=== PATIENT | female | born 1950 | race Caucasian/White ===

== ENCOUNTER 2020-12-24 10:51 | Outpatient (REF) | payer MEDICARE, OTHER, SELFPAY ==
[2020-12-24 10:57] LABS: MANUAL DIFF FLAG NO
[2020-12-24 11:24] LABS: Basophils Absolute Auto 0.1 X10*3/uL (0.0-0.2); Basophils Percent Auto 1.3 % (0-2); Eosinophils Absolute Auto 0.3 X10*3/uL (0.0-0.4); Eosinophils Percent Auto 3.9 % (0-4); Hematocrit 42.5 % (37-47); Hemoglobin 13.7 g/dl (12.0-16.0); Imm Gran Abs Auto 0.02 X10*3/uL (0.00-0.03); Imm Gran Pct Auto 0.3 % (0.0-0.4); Lymphocytes Percent Auto 42.5 % (20-40); Mean Corpuscular HGB Conc 32.2 g/dl (31.0-35.0); Mean Corpuscular Volume 93.2 fL (80-98); Mean Platelet Volume 11.2 fL (9.4-12.3); Monocytes Absolute Auto 0.7 X10*3/uL (0.1-1.2); Monocytes Percent Auto 9.1 % (2-11); Neutrophils Absolute Auto 3.1 X10*3/uL (2.0-8.3); Neutrophils Percent Auto 42.9 % (45-73); Platelet Count 230 X10*3/uL (160-400); Red Blood Count 4.56 X10*6/uL (4.20-5.50); Red Cell Distribution Width 13.2 % (11.0-16.0); White Blood Count 7.1 X10*3/uL (4.8-10.8)
[2020-12-24 12:09] LABS: Appearance Urine CLEAR; Color Urine YELLOW; Glucose Urine UA NEG (NEG); Leukocyte Esterase Urine 1+ (NEG); Nitrite Urine NEG (NEG); Urine Blood 1+ (NEG); Urine Ketones NEG (NEG); Urine Protein NEG (NEG-TRACE)
[2020-12-24 13:13] LABS: Squamous Epithelial Cell Urine TRACE /LPF
[2020-12-24 14:29] LABS: TSH reflex Free T4 3.52 uIU/mL (0.32-4.0); Vitamin D 25-OH Total 37.8 ng/mL (>30)
[2020-12-24 14:37] LABS: Alanine Aminotransferase 19 U/L (0-31); Albumin Level 3.9 g/dL (3.5-5.0); Alkaline Phosphatase 65 U/L (39-117); Anion Gap 12 (12-20); Aspartate Amino Transferase 20 U/L (5-31); Bilirubin Total 0.4 mg/dL (0.0-1.0); Blood Urea Nitrogen 12 mg/dL (9-16); Carbon Dioxide 29 mmol/L (22-29); Chloride 106 mmol/L (96-108); Cholesterol 245 mg/dL; Estimated Glomerular Filt Rate > 60; Glucose Fasting 83 mg/dL (60-99); HDL Cholesterol 91 mg/dL; LDL Cholesterol Calculated 137 mg/dl; Sodium 143 mmol/L (135-145); Total Protein 6.2 g/dL (6.5-8.0); Triglycerides 86 mg/dL
== END 2020-12-24 10:52 | disposition home or self-care (01) ==
LOC: HO.LNP 10:51
PROVIDERS: Visit Provider Internal Medicine
DX: E01.8 Other iodine-deficiency related thyroid disorders and allied conditions (principal); M85.80 Other specified disorders of bone density and structure, unspecified site; E78.00 Pure hypercholesterolemia, unspecified; E55.9 Vitamin D deficiency, unspecified
CPT/HCPCS: 80053; 80061; 81001; 81003; 82306; 84443; 85025

== ENCOUNTER 2021-12-24 07:36 | Outpatient (REF) | payer MEDICARE, OTHER, SELFPAY ==
[2021-12-24 07:49] LABS: MANUAL DIFF FLAG NO
[2021-12-24 08:41] LABS: Basophils Absolute Auto 0.1 X10*3/uL (0.0-0.2); Basophils Percent Auto 0.9 % (0-2); Eosinophils Absolute Auto 0.3 X10*3/uL (0.0-0.4); Eosinophils Percent Auto 3.5 % (0-4); Hematocrit 40.2 % (37.0-47.0); Hemoglobin 13.2 g/dl (12.0-16.0); Imm Gran Abs Auto 0.02 X10*3/uL (0.00-0.03); Imm Gran Pct Auto 0.2 % (0.0-0.4); Lymphocytes Absolute Auto 3.3 X10*3/uL (1.2-4.9); Lymphocytes Percent Auto 40.4 % (20-40); Mean Corpuscular HGB Conc 32.8 g/dl (31.0-35.0); Mean Corpuscular Hemoglobin 30.1 pg (27.0-33.0); Mean Corpuscular Volume 91.6 fL (80.0-98.0); Mean Platelet Volume 10.5 fL (9.4-12.3); Monocytes Absolute Auto 0.7 X10*3/uL (0.1-1.2); Monocytes Percent Auto 8.8 % (2-11); Neutrophils Absolute Auto 3.8 x10*3/uL (2.0-8.3); Neutrophils Percent Auto 46.2 % (45-73); Platelet Count 246 X10*3/uL (160-400); Red Blood Count 4.39 X10*6/uL (4.20-5.50); Red Cell Distribution Width 13.5 % (11.0-16.0); White Blood Count 8.1 X10*3/uL (4.8-10.8)
[2021-12-24 09:08] LABS: Alanine Aminotransferase 17 U/L (0-31); Albumin Level 3.9 g/dL (3.5-5.0); Alkaline Phosphatase 60 U/L (39-117); Anion Gap 13 (12-20); Aspartate Amino Transferase 18 U/L (5-31); Bilirubin Total 0.6 mg/dL (0.0-1.0); Blood Urea Nitrogen 15 mg/dL (9-16); Calcium 9.4 mg/dL (8.4-10.2); Carbon Dioxide 29 mmol/L (22-29); Chloride 105 mmol/L (96-108); Cholesterol 255 mg/dL; Estimated Glomerular Filt Rate > 60; Glucose Fasting 80 mg/dL (60-99); HDL Cholesterol 87 mg/dL; LDL Cholesterol Calculated 154 mg/dl; Potassium 4.3 mmol/L (3.3-5.1); Sodium 143 mmol/L (135-145); Total Protein 6.5 g/dL (6.5-8.0); Triglycerides 71 mg/dL
[2021-12-24 09:23] LABS: Appearance Urine Clear; Color Urine Yellow; Glucose Urine UA Negative (Negative); Leukocyte Esterase Urine Small (1+) (Negative); Nitrite Urine Negative (Negative); PH 6.5 (5.0-9.0); UMIC TRIGGER UA YES; Urine Blood Small (1+) (Negative); Urine Ketones Negative (Negative); Urine Protein Negative (Neg-Trace)
[2021-12-24 09:29] LABS: TSH reflex Free T4 3.36 uIU/mL (0.32-4.0); Vitamin D 25-OH Total 40.5 ng/mL (>30)
[2021-12-24 09:40] LABS: Bacteria Urine None Seen (None Seen); Hyaline Casts Urine 0-2 /LPF (0-2); Squamous Epithelial Cell Urine 0-2 /HPF (0-2); WBC Urine 0-5 /HPF (0-5)
== END 2021-12-24 07:37 | disposition home or self-care (01) ==
LOC: HO.LAB 07:36
PROVIDERS: PCP Internal Medicine; Visit Provider Internal Medicine
DX: E01.8 Other iodine-deficiency related thyroid disorders and allied conditions (principal); E78.00 Pure hypercholesterolemia, unspecified; E55.9 Vitamin D deficiency, unspecified
CPT/HCPCS: 36415; 80053; 80061; 81001; 82306; 84443; 85025

== ENCOUNTER 2023-01-26 11:15 | Outpatient (REF) | payer MEDICARE, OTHER, SELFPAY ==
[2023-01-26 11:20] LABS: MANUAL DIFF FLAG NO
[2023-01-26 11:29] LABS: Appearance Urine Clear; Color Urine Yellow; Glucose Urine UA Negative (Negative); Leukocyte Esterase Urine Small (1+) (Negative); Nitrite Urine Negative (Negative); Specific Gravity - Urine 1.015 (1.005-1.025); UMIC TRIGGER UACC YES; Urine Blood Small (1+) (Negative); Urine Ketones Negative (Negative); Urine Protein Negative (Neg-Trace)
[2023-01-26 11:30] LABS: Basophils Absolute Auto 0.1 X10*3/uL (0.0-0.2); Basophils Percent Auto 1.3 % (0-2); Eosinophils Absolute Auto 0.3 X10*3/uL (0.0-0.4); Eosinophils Percent Auto 4.2 % (0-4); Hematocrit 43.1 % (37.0-47.0); Hemoglobin 13.6 g/dl (12.0-16.0); Imm Gran Abs Auto 0.01 X10*3/uL (0.00-0.03); Imm Gran Pct Auto 0.1 % (0.0-0.4); Lymphocytes Absolute Auto 3.5 X10*3/uL (1.2-4.9); Lymphocytes Percent Auto 47.2 % (20-40); Mean Corpuscular HGB Conc 31.6 g/dl (31.0-35.0); Mean Corpuscular Hemoglobin 29.3 pg (27.0-33.0); Mean Corpuscular Volume 92.9 fL (80.0-98.0); Mean Platelet Volume 11.7 fL (9.4-12.3); Monocytes Absolute Auto 0.6 X10*3/uL (0.1-1.2); Monocytes Percent Auto 7.9 % (2-11); Neutrophils Absolute Auto 2.9 x10*3/uL (2.0-8.3); Neutrophils Percent Auto 39.3 % (45-73); Platelet Count 217 X10*3/uL (160-400); Red Blood Count 4.64 X10*6/uL (4.20-5.50); Red Cell Distribution Width 13.2 % (11.0-16.0); White Blood Count 7.4 X10*3/uL (4.8-10.8)
[2023-01-26 11:47] LABS: Bacteria Urine None Seen (None Seen); Hyaline Casts Urine 0-2 /LPF (0-2); Squamous Epithelial Cell Urine 0-2 /HPF (0-2); UACC Culture Trigger YES; WBC Urine 0-5 /HPF (0-5)
[2023-01-26 11:55] LABS: Alanine Aminotransferase 19 U/L (0-31); Albumin Level 3.9 g/dL (3.5-5.0); Alkaline Phosphatase 64 U/L (39-117); Anion Gap 13 (12-20); Aspartate Amino Transferase 19 U/L (5-31); Bilirubin Total 0.4 mg/dL (0.0-1.0); Blood Urea Nitrogen 16 mg/dL (9-16); Calcium 9.5 mg/dL (8.4-10.2); Carbon Dioxide 27 mmol/L (22-29); Chloride 105 mmol/L (96-108); Cholesterol 254 mg/dL (<200); Estimated Glomerular Filt Rate > 60; Glucose Fasting 82 mg/dL (60-99); HDL Cholesterol 85 mg/dL (>40); LDL Cholesterol Calculated 148 mg/dL (<100); Potassium 3.9 mmol/L (3.3-5.1); Sodium 141 mmol/L (135-145); Total Protein 6.8 g/dL (6.5-8.0); Triglycerides 108 mg/dL (<150)
[2023-01-26 12:11] LABS: TSH reflex Free T4 5.31 uIU/mL (0.32-4.0); Vitamin D 25-OH Total 52.4 ng/mL (>30)
[2023-01-26 12:58] LABS: Free T4 (Free Thyroxine) 1.04 ng/dL (0.71-1.85)
== END 2023-01-26 11:16 | disposition home or self-care (01) ==
LOC: HO.LNP 11:15
PROVIDERS: Visit Provider Internal Medicine
DX: E01.8 Other iodine-deficiency related thyroid disorders and allied conditions (principal); E78.00 Pure hypercholesterolemia, unspecified; E55.9 Vitamin D deficiency, unspecified; R82.90 Unspecified abnormal findings in urine
CPT/HCPCS: 80053; 80061; 81001; 82306; 84439; 84443; 85025; 87086

== ENCOUNTER 2023-05-05 11:11 | Outpatient (REF) | payer MEDICARE, OTHER, SELFPAY ==
[2023-05-05 12:12] LABS: TSH reflex Free T4 4.23 uIU/mL (0.32-4.0)
[2023-05-05 12:52] LABS: Free T4 (Free Thyroxine) 1.18 ng/dL (0.71-1.85)
== END 2023-05-05 11:12 | disposition home or self-care (01) ==
LOC: HO.LNP 11:11
PROVIDERS: Visit Provider Internal Medicine
DX: E04.1 Nontoxic single thyroid nodule (principal)
CPT/HCPCS: 84439; 84443

== ENCOUNTER 2024-02-04 11:06 | Outpatient (REF) | payer MEDICARE, OTHER, SELFPAY ==
[2024-02-04 11:13] LABS: MANUAL DIFF FLAG NO
[2024-02-04 12:00] LABS: Appearance Urine Clear; Color Urine Yellow; Glucose Urine UA Negative (Negative); Leukocyte Esterase Urine Trace (Negative); Nitrite Urine Negative (Negative); PH 6.5 (5.0-9.0); UMIC TRIGGER UACC YES; Urine Blood Moderate (2+) (Negative); Urine Ketones Negative (Negative); Urine Protein Negative (Neg-Trace)
[2024-02-04 12:01] LABS: Basophils Absolute Auto 0.1 X10*3/uL (0.0-0.2); Basophils Percent Auto 1.2 % (0-2); Eosinophils Absolute Auto 0.3 X10*3/uL (0.0-0.4); Eosinophils Percent Auto 3.7 % (0-4); Hemoglobin 13.3 g/dl (12.0-16.0); Imm Gran Abs Auto 0.02 X10*3/uL (0.00-0.03); Imm Gran Pct Auto 0.3 % (0.0-0.4); Lymphocytes Absolute Auto 3.5 X10*3/uL (1.2-4.9); Lymphocytes Percent Auto 46.1 % (20-40); Mean Corpuscular HGB Conc 32.4 g/dl (31.0-35.0); Mean Corpuscular Hemoglobin 30.2 pg (27.0-33.0); Mean Platelet Volume 11.1 fL (9.4-12.3); Monocytes Absolute Auto 0.6 X10*3/uL (0.1-1.2); Monocytes Percent Auto 7.5 % (2-11); Neutrophils Absolute Auto 3.2 x10*3/uL (2.0-8.3); Neutrophils Percent Auto 41.2 % (45-73); Platelet Count 223 X10*3/uL (160-400); Red Blood Count 4.41 X10*6/uL (4.20-5.50); Red Cell Distribution Width 13.5 % (11.0-16.0); White Blood Count 7.7 X10*3/uL (4.8-10.8)
[2024-02-04 12:03] LABS: Bacteria Urine None Seen (None Seen); Hyaline Casts Urine 0-2 /LPF (0-2); Squamous Epithelial Cell Urine 0-2 /HPF (0-2); WBC Urine 0-5 /HPF (0-5)
[2024-02-04 12:24] LABS: Alanine Aminotransferase 18 U/L (0-31); Albumin Level 3.8 g/dL (3.5-5.0); Alkaline Phosphatase 69 U/L (39-117); Anion Gap 10 (12-20); Aspartate Amino Transferase 25 U/L (5-31); Bilirubin Total 0.5 mg/dL (0.0-1.0); Blood Urea Nitrogen 14 mg/dL (9-16); Calcium 9.9 mg/dL (8.4-10.2); Carbon Dioxide 30 mmol/L (22-29); Chloride 106 mmol/L (96-108); Cholesterol 234 mg/dL (<200); Estimated Glomerular Filt Rate > 60; Glucose Fasting 80 mg/dL (60-99); HDL Cholesterol 86 mg/dL (>40); LDL Cholesterol Calculated 128 mg/dL (<100); Potassium 3.8 mmol/L (3.3-5.1); Sodium 142 mmol/L (135-145); Total Protein 6.6 g/dL (6.5-8.0); Triglycerides 103 mg/dL (<150)
[2024-02-04 12:42] LABS: TSH reflex Free T4 4.02 uIU/mL (0.32-4.0); Vitamin D 25-OH Total 60.6 ng/mL (>30)
[2024-02-04 13:21] LABS: Free T4 (Free Thyroxine) 0.96 ng/dL (0.71-1.85)
== END 2024-02-04 11:07 | disposition home or self-care (01) ==
LOC: HO.LNP 11:06
PROVIDERS: Visit Provider Internal Medicine
DX: E01.8 Other iodine-deficiency related thyroid disorders and allied conditions (principal); E78.00 Pure hypercholesterolemia, unspecified; E55.9 Vitamin D deficiency, unspecified
CPT/HCPCS: 80053; 80061; 81001; 82306; 84439; 84443; 85025

== ENCOUNTER 2024-04-18 12:00 | Outpatient (REF) | payer MEDICARE, OTHER, SELFPAY ==
[2024-04-19 16:18] LABS: Immunoglobulin A 311 mg/dL (70-320)
[2024-04-19 21:58] LABS: Transglutaminase IgA <1.0 U/mL
== END 2024-04-18 12:01 | disposition home or self-care (01) ==
LOC: HO.10HDL 12:00
PROVIDERS: Visit Provider Internal Medicine Gastroenterology
DX: R19.4 Change in bowel habit (principal)
CPT/HCPCS: 36415; 82784; 86364

== ENCOUNTER 2024-05-11 11:46 | Day surgery (SDC) | payer MEDICARE, OTHER, SELFPAY ==
[2024-05-09 14:01] VITALS: BMI 20.4
[2024-05-11 12:25] VITALS: BMI 20.8
[2024-05-11 12:30] VITALS: BP 146/75; PULSE 68; RESP 16; TEMP 36.9; O2SAT 99
[2024-05-11] MEDS: Lactated Ringers 1,000 ML 100 ML IVCONT (12:53)
--- NOTE | 2024-05-11 13:05 | HO.ANESPROP2 ---
Documented by User: Savita Nielson NP 05/10/24 08:32 HPI - Anesthesia Eval Consult details Narrative: 73yo F for Colonoscopy PMFSH Active Problems Active Problems: All Active Problems Tick bite of abdomen (Acute) Past Medical History Medical History (Updated 05/09/24 @ 14:01 by Evelyn Pedersen RN) Generalized headaches Thyroid disease Anxiety Surgical History Surgical History (Updated 05/09/24 @ 14:01 by Evelyn Pedersen RN) Hx of tonsillectomy H/O colonoscopy Social History Social History Patient Tobacco Use Status: Current everyday Tobacco user Cigarettes Per Day: 4 Use of substances other than those prescribed or required for medical reasons: No Are you DNR?: No Advance Directives: No Advance Directives Information Provided: Yes Meds Allergies Allergy/AdvReac Type Severity Reaction Status Date / Time Seasonal Allergies Allergy Intermediate Sneezing Verified 05/11/24 12:39 fragrance in mycolog Allergy Intermediate blisters Uncoded 05/11/24 12:39 hair dye Allergy Unknown Unknown Uncoded 05/11/24 12:39 Home Medications ?Medication ?Instructions ?Recorded ?Confirmed ?Last Taken ?Type cholecalciferol (vitamin D3) 10 10 mcg PO DAILY 08/15/22 05/11/24 Unknown History mcg (400 unit) capsule clobetasol 0.05 % topical cream 1 appl topical DAILY 08/15/22 05/11/24 Unknown History ketoconazole 2 % topical cream 1 appl topical DAILY 08/15/22 05/11/24 Unknown History levothyroxine 88 mcg tablet 88 mcg PO 5XW 08/15/22 05/11/24 05/11/24 History metronidazole 0.75 % topical cream 1 appl topical DAILY 08/15/22 05/11/24 Unknown History (MetroCream) levothyroxine 100 mcg tablet 100 mcg PO 2XW 05/09/24 05/11/24 Unknown History Exam Height,Weight and Vital Signs: Height 5 ft 4 in Weight 53.977 kg Assessment and Plan Assessment Anesthesia Assessment: Chart Reviewed Documented by User: Leona Phelan, 05/11/24 13:06 [facility] Past Medical History Medical History (Updated 05/09/24 @ 14:01 by Evelyn Pedersen RN) Generalized headaches Thyroid disease Anxiety Family History Family history of problems with anesthesia: No Surgical History Surgical History (Updated 05/09/24 @ 14:01 by Evelyn Pedersen RN) Hx of tonsillectomy H/O colonoscopy History of Problems with Anesthesia: No Social History Social History Patient Tobacco Use Status: Current everyday Tobacco user Cigarettes Per Day: 4 Use of substances other than those prescribed or required for medical reasons: No Are you DNR?: No Advance Directives: No Advance Directives Information Provided: Yes Meds Allergies Allergy/AdvReac Type Severity Reaction Status Date / Time Seasonal Allergies Allergy Intermediate Sneezing Verified 05/11/24 12:39 fragrance in mycolog Allergy Intermediate blisters Uncoded 05/11/24 12:39 hair dye Allergy Unknown Unknown Uncoded 05/11/24 12:39 Home Medications ?Medication ?Instructions ?Recorded ?Confirmed ?Last Taken ?Type cholecalciferol (vitamin D3) 10 10 mcg PO DAILY 08/15/22 05/11/24 Unknown History mcg (400 unit) capsule clobetasol 0.05 % topical cream 1 appl topical DAILY 08/15/22 05/11/24 Unknown History ketoconazole 2 % topical cream 1 appl topical DAILY 08/15/22 05/11/24 Unknown History levothyroxine 88 mcg tablet 88 mcg PO 5XW 08/15/22 05/11/24 05/11/24 History metronidazole 0.75 % topical cream 1 appl topical DAILY 08/15/22 05/11/24 Unknown History (MetroCream) levothyroxine 100 mcg tablet 100 mcg PO 2XW 05/09/24 05/11/24 Unknown History Exam Exam Date and Time: 05/11/24 1300 Height,Weight and Vital Signs: Height 5 ft 4 in Weight 53.977 kg Vital Signs Temperature 98.5 F 05/11/24 12:30 Pulse Rate 68 05/11/24 12:30 Respiratory Rate 16 05/11/24 12:30 Blood Pressure 146/75 H 05/11/24 12:30 Pulse Oximetry 99 05/11/24 12:30 Oxygen Delivery Method Room Air 05/11/24 12:30 Temperature 98.5 F 05/11/24 12:30 Pulse Rate 68 05/11/24 12:30 Respiratory Rate 16 05/11/24 12:30 Blood Pressure 146/75 H 05/11/24 12:30 Pulse Oximetry 99 05/11/24 12:30 Oxygen Delivery Method Room Air 05/11/24 12:30 Airway Mallampati Class: II TM Dist: >3cm Neck ROM: Full Loose/Missing/Broken Teeth: No (patient denies any loose or broken teeth) Heart: S1S2 Lungs: CTAB Assessment and Plan Assessment Anesthesia Assessment: Anesthesia Plan Discussed and Chart Reviewed Final Anesthetic Review Family History of Problems with Anesthesia: No History of Problems with Anesthesia: No NPO: Yes ASA Class: II Final Preanesthetic Review: No Changes in Pt Med Stat, Meds/Allgs Chart Reviewed, Consent Obtained/Reviewed and Anes Risks/Benef Reviewed Patient Risk: Low Procedure Risk: Low Anesthetic Plan Anesthetic Plan: MAC: and Agree w/ Assess. and Plan Disposition: Standard PACU
--- NOTE | 2024-05-11 13:07 | MHC.SHP ---
Pre-Procedural Eval Section A - 24 Hr Update-Section A only Date of Service: 05/11/24 The patient is an INPATIENT: No Changes since office visit: No Cold of Flu in the past 2 weeks, No New Medical Problems, No Changes in Medication and No Patient answered all questions The patient has been examined within 24 hours of the surgical procedure. The History & Physical has been completed within 30 days and I have reviewed it.: Yes Section B - Complete if H&P > 30 days Chief Complaint: Other fecal abnormalities Allergies: Allergies Allergy/AdvReac Type Severity Reaction Status Date / Time Seasonal Allergies Allergy Intermediate Sneezing Verified 05/11/24 12:39 fragrance in mycolog Allergy Intermediate blisters Uncoded 05/11/24 12:39 hair dye Allergy Unknown Unknown Uncoded 05/11/24 12:39 Plan I have reviewed the history and physical and performed a pertinent physical examination on my patient. No changes have occurred unless specified. Time Spent With Patient Time: Total time managing care of this patient today ____ minutes.
--- OUTSIDE RECORDS SUMMARY | 2024-05-11 13:33 | XMS_ITS | Clinical Summary ---
Author Organization [address] [facility] Address [address] [place] [address] Phone Care Team Providers Care Bisque Tile Burner Name Role Phone Unavailable Primary Care Provider Unavailabl e Encounters Date Type Department Care Team Description 02/23/2024 Lab Requisition [facility] - Main Lab [address] [facility] [employer] [place] [address] Teofilo Fletcher MD Benign essential microscopic hematuria from Last 3 Months Social History Tobacco Use Types Packs/Day Years Used Date Smoking Tobacco: Never Assessed Sex and Gender Information Value Date Recorded Sex Assigned at Not on file Gender Identity Not on file Sexual Orientation Not on file Plan of Treatment Health Maintenance Due Date Last Done Comments DTaP,Tdap,and Td Vaccines (1 - Tdap) 10/21/1970 Zoster Vaccines (1 of 2) 10/21/2001 Pneumococcal Vaccine: 65+ Years (1 of 1 - PCV) 10/21/2016 Colorectal Cancer Screening: Colonoscopy 03/09/2022 Depression Screening 03/09/2022 Falls Risk Assessment 03/09/2022 Hepatitis C Screening 03/09/2022 Medicare Annual Wellness Visit 03/09/2022 Osteoporosis Screening (Bone Density Screening) 03/09/2022 Social Influencers of Health Screening 03/09/2022 COVID-19 Vaccine ( - 2023- season) 2023 Influenza Vaccine (#1) 2023 Breast Cancer Screening 10/25/2025 10/26/19 24, 10/09/2022, 09/30/2021, Additional history exists RSV Immunization Patients 60+ Years Old (1 - 1-dose 75+ series) 10/21/2026 HIB Vaccines Aged Out No longer eligi ble based on patient's age to complete this topic HPV Vaccines Aged Out No longer eligi ble based on patient's age to complete this topic Hepatitis A Vaccines Aged Out No long er eligible based on patient's age to complete this topic Hepatitis B Vaccines Aged Out No long er eligible based on patient's age to complete this topic IPV Vaccines Aged Out No longer eligi ble based on patient's age to complete this topic MMR Vaccines Aged Out No longer eligi ble based on patient's age to complete this topic Meningococcal ACWY Vaccine Aged Out N o longer eligible based on patient's age to complete this topic RSV Immunization Patients Under 20 months Aged Out No longer eligible based on patient's age to complete this topic Varicella Vaccines Aged Out No longer eligible based on patient's age to complete this topic Procedures Procedure Name Priority Date/Time Associated Diagnosis Comments AP OUTSIDE CONSULT Routine 02/15/2024 12 :00 AM EST Benign essential microscopic hematuria BONY SCREENING DIGITAL Routine 10/26/2023 12:54 PM EDT Encounter for screening mammogram for malignant neoplasm of breast from Last 3 Months or Most Recently Relevant to Health Maintenance Results * Anatomic pathology outside consult (02/15/2024 12:00 AM EST) FISH Addendum Results of UroVysion fluorescence in situ hybridization (FISH) testing: CEP3: Normal CEP7: Normal CEP17: Normal LSI 9p21: Normal Interpretation: Normal profile Controls stained appropriately. Note: The results are intended as a screening device and should be interpreted in association with other clinical and pathological findings. 03/15/2024 8:59 AM [facility] Addendum electronically signed by Mark Young MD on 03/15/2024 at 8:59 AM Final Diagnosis Urine, Voided: Negative for high grade urothelial carcinoma. Acute inflammatory cells present. Note: UroVysion testing to follow. 03/15/2024 8:59 AM EST [facility] Gross Description A. Urine, Voided, : [id number] Recd 1 TP CYTO 1 TP FISH 03/15/2024 8:59 AM [facility] Disclaimer Unless otherwise specified, all tissue is 10% NB formalin fixed and paraffin embedded. 03/15/2024 8:59 AM EST [facility] Tissue Urine specimen from urethra / Unknown 02/15/2024 02/23/2024 1:55 PM EST Teofilo Fletcher MD LAB PATHOLOGY ORD ERABLES [facility] [address] [place] [address], * BONY SCREENING DIGITAL (10/26/2023 12:54 PM EDT) Anatomical Region Laterality Modality Mammography 10/26/2023 10:0 2 AM EDT Narrative 10/26/2023 12:54 PM EDT [facility] Diagnostic Imaging Department [address] [place] [address] Patient: ??JOHNNY FREEMAN ?/Age/Sex: 1950 - 73 - F Unit#: ??[id number] ? Location/Status: ??SPDIMAM/REG CLI ? Mnemonic/Ordering Site: ??DIGSC/SPMAM Ordering Physician: ??JOSHUA AVSQUEZ MD Bony Screening Digital - 10/26/23 - 1025 Report Status:Signed EXAM: Bony Screening Digital EXAM DATE AND TIME: 10/26/2023 10:26 AM HISTORY: ??Annual screening COMPARISON: ??10/09/2022, 09/30/2021, 09/28/2020, 09/27/2019 and 07/12/2018 TECHNIQUE: Bilateral digital breast tomosynthesis was performed in the CC and MLO projections. Computer aided detection with oragenics 7.2-H and InsideView 3D 3.1 was employed. TISSUE DENSITY: c. The breasts are heterogeneously dense, which may obscure small masses. FINDINGS: Stable biopsy marker in the right breast. ??No suspicious masses, grouped microcalcifications, or areas of architectural distortion are seen. The skin and vascularity are unremarkable. IMPRESSION: Stable mammographic appearance of the breasts. ??No evidence of malignancy is seen. A negative mammogram in the presence of a clinically suspicious palpable abnormality does not preclude the possibility of malignancy or alter the indications for biopsy. BI-RADS: ??Category 2: Benign RECOMMENDATION(S): 1: Routine screening mammogram BILATERAL in 1 year. Dictating Physician: ??FLAKO SHAW MD Electronically Signed by: ??FLAKO SHAW MD Dic Date/Time: ??10/26/23 1246 Sign date/Time: ??10/26/23 1254 Procedure Note Flako Shaw MD - 01/20/2024 [facility] Diagnostic Imaging Department [address] [place] [id number] Patient: PETEJOHNNY D.O.B./Age/Sex: 1950 - 73 - F Unit#: [id number] Location/Status: SPDIMAM/REG CLI Mnemonic/Ordering Site: [facility] Ordering Physician: JOSHUA VASQUEZ MD Bony Screening Digital - 10/26/23 - 1025 Report Status:Signed EXAM: [facility] Screening Digital EXAM DATE AND TIME: 10/26/2023 10:26 AM HISTORY: Annual screening COMPARISON: 10/09/2022, 09/30/2021, 09/28/2020, 09/27/2019 and 07/12/2018 TECHNIQUE: Bilateral digital breast tomosynthesis was performed in the CCand MLO projections. Computer aided detection with oragenics 7.2-H andInsideView 3D 3.1 was employed. TISSUE DENSITY: c. The breasts are heterogeneously dense, which mayobscure small masses. FINDINGS: Stable biopsy marker in the right breast. No suspicious masses, grouped microcalcifications, or areas of architectural distortion are seen. Theskin and vascularity are unremarkable. IMPRESSION: Stable mammographic appearance of the breasts. No evidence of malignancyis seen. A negative mammogram in the presence of a clinically suspicious palpable abnormality does not preclude the possibility of malignancy or alter the indications for biopsy. BI-RADS: Category 2: Benign RECOMMENDATION(S): 1: Routine screening mammogram BILATERAL in 1 year. Dictating Physician: FLAKO SHAW MD Electronically Signed by: FLAKO SHAW MD Dic Date/Time: 10/26/23 1246 Sign date/Time: 10/26/23 1254 Joshua Vasquez MD IMG BI PROCEDURES from Last 3 Months or Most Recently Relevant to Health Maintenance
--- OUTSIDE RECORDS SUMMARY | 2024-05-11 13:34 | XMS_ITS | Encounter Summary ---
Author Organization [facility] Address [address] [place] [address] Care Team Providers Care Radiology Assistant Name Role Phone Unavailable Primary Care Provider Unavailabl e Encounter Details Date Type Department Care Team (Late st Contact Info) Description 02/23/2024 Lab Requisition [facility] - Main Lab [address] [facility] [place] [address] Teofilo Fletcher MD [address] [place] [phone] Benign essential microscopic hematuria Social History Tobacco Use Types Packs/Day Years Used Date Smoking Tobacco: Never Assessed Sex and Gender Information Value Date Recorded Sex Assigned at Not on file Gender Identity Not on file Sexual Orientation Not on file documented as of this encounter Plan of Treatment Not on file documented as of this encounter Procedures Procedure Name Priority Date/Time Associated Diagnosis Comments AP OUTSIDE CONSULT Routine 02/15/2024 12 :00 AM EST Benign essential microscopic hematuria documented in this encounter Results * Anatomic pathology outside consult (02/15/2024 12:00 AM EST) FISH Addendum Results of UroVysion fluorescence in situ hybridization (FISH) testing: CEP3: Normal CEP7: Normal CEP17: Normal LSI 9p21: Normal Interpretation: Normal profile Controls stained appropriately. Note: The results are intended as a screening device and should be interpreted in association with other clinical and pathological findings. 03/15/2024 8:[address] [facility] Addendum electronically signed by Mark Young MD on 03/15/2024 at 8:59 AM Final Diagnosis Urine, Voided: Negative for high grade urothelial carcinoma. Acute inflammatory cells present. Note: UroVysion testing to follow. 03/15/2024 8:59 AM EST [facility] Gross Description A. Urine, Voided, : [id number] Recd 1 TP CYTO 1 TP FISH 03/15/2024 8:59 AM EST [facility] Disclaimer Unless otherwise specified, all tissue is 10% NB formalin fixed and paraffin embedded. 03/15/2024 8:59 AM EST [facility] Tissue Urine specimen from urethra / Unknown 02/15/2024 02/23/2024 1:55 PM EST Teofilo Fletcher MD LAB PATHOLOGY ORD ERABLES [facility]) [facility] [address] [place] [address], documented in this encounter Visit Diagnoses Diagnosis Benign essential microscopic hematuria documented in this encounter
[2024-05-11 13:57] VITALS: BP 93/43; PULSE 61; RESP 16; TEMP 36.1; O2SAT 96
[2024-05-11 14:12] VITALS: BP 118/66; PULSE 62; RESP 20; TEMP 36.1; O2SAT 99
--- NOTE | 2024-05-12 00:49 | OP_ITS ---
DATE OF SERVICE: 05/11/2024 SURGEON: Jake Zhou MD INDICATIONS: Change in bowel habits. PREOPERATIVE DIAGNOSIS: POSTOPERATIVE DIAGNOSIS: PROCEDURE PERFORMED: Colonoscopy to the terminal ileum with biopsy and snare polypectomy. ESTIMATED BLOOD LOSS: COMPLICATIONS: ANESTHESIA: Monitored anesthesia care. ASSISTANTS: SPECIMENS: DESCRIPTION OF PROCEDURE: A history and physical was performed. The risks and benefits of the procedure were explained to the patient. Informed consent was obtained. The patient was placed in the left lateral decubitus position. A digital rectal exam was performed and was found to be normal. The Olympus pediatric colonoscope was introduced into the rectum and advanced to the cecum. The cecum was identified by transillumination, palpation, and identification of ileocecal valve. Examination was performed. The scope was removed. She tolerated the procedure well and was returned to the recovery area in stable condition. FINDINGS: The terminal ileum was normal. The visualized colonic mucosa was normal. The quality of the prep was good. There was no colitis. Random sigmoid biopsies were obtained because of the patient's change in bowel habits. In the right colon at 60 cm was a less than 5 mm sessile polyp, which was removed with biopsy forceps. In the rectum was a 6 mm polyp, which was removed with a cold snare and recovered via suction. There was mild sigmoid diverticulosis, and the sigmoid was quite tortuous. Retroflexed examination showed small sized internal hemorrhoids. IMPRESSION: Colon polyps. RECOMMENDATION: Follow up the biopsy results. MD YOGESH Owen/LATRELL / [id number]
== END 2024-05-11 14:38 | disposition home or self-care (01) ==
PROVIDERS: PCP Internal Medicine; Visit Provider Internal Medicine Gastroenterology
PROC: 0DJD8ZZ Inspection of Lower Intestinal Tract, Via Natural or Artificial Opening Endoscopic (ICD-10-PCS; CPT 45378; principal; 2024-05-11 13:00)
DX: R19.5 Other fecal abnormalities (principal); D12.4 Benign neoplasm of descending colon; D12.8 Benign neoplasm of rectum; K64.8 Other hemorrhoids; R51.9 Headache, unspecified; E05.90 Thyrotoxicosis, unspecified without thyrotoxic crisis or storm; J30.2 Other seasonal allergic rhinitis; F41.9 Anxiety disorder, unspecified; R55 Syncope and collapse; N83.209 Unspecified ovarian cyst, unspecified side; Z79.899 Other long term (current) drug therapy; F17.210 Nicotine dependence, cigarettes, uncomplicated
CPT/HCPCS: 45385; 45380; 88305; J2704

== ENCOUNTER 2024-07-11 10:45 | Outpatient (REF) | payer MEDICARE, OTHER, SELFPAY ==
--- OUTSIDE RECORDS SUMMARY | 2024-07-11 12:49 | XMS_ITS ---
Author Organization [facility] Address [address] [place] [phone] Care Team Providers Care Track Fitter Name Role Phone Rolan TEJADA, Joshua Primary Care Provider Julieta Zhou Jr, Jake Phipps REASON FOR VISIT change in bwl habits, heme positive stools Encounters Encounter Location Date Provider Diagnosis [facility] [address] [place] [phone] 05/11/2024 Jake Zhou Jr Colon polyps K63.5 and Change in bowel habits R19.4 Assessments Encounter Date Diagnosis (ICD Code) Assessment Notes Treatment Notes Treatment Clinical Notes Section Notes 05/11/2024 Colon polyps (ICD-10 - K63.5) 05/11/2024 Change in bowel habits (ICD-10 - R19.4) Plan Of Treatment No Information Progress Notes * JOHNNY FREEMAN MDOB:1950 (73 yo F)Acc No.[id number]:05/11/2024 COLON WITH MAC Patient:?JOHNNY FREEMAN Provider:?Jake Zhou MD :1950???Age:73 Y???Sex:Female D ate:05/11/2024 Address:[address] [place] [address] Pcp:Joshua Gongora MD Subjective: * Chief Complaints: * ???1. Change in bwl habits, heme positive stools. * Medical History:? Objective: * Vitals:? Assessment: * Assessment: 1.?Colon polyps - K63.5 ([facility])???2.?Change in bowel habits - R19.4??? Plan: * Treatment: * Procedure Codes:?93512 LESIO N REMOVAL COLONOSCOPY, 33360 COLONOSCOPY AND BIOPSY, Modifiers: 59 , 0584F INTRVL 3+YRS PTS CLNSCP DOCD * * The named appointment provid er may or may not be the originator of this progress note, and it is not deemed complete until electronically signed by the appointment provider. Sign off status: Pending * Provider:?Jake Zhou MD Date:?0 05/11/2024 Generated for Alfonzo christianson/Poncho/eTransmitting on:?07/11/2024 12:49 PM EDT
--- OUTSIDE RECORDS SUMMARY | 2024-07-11 12:50 | XMS_ITS ---
Author Organization Joshua Gongora MD Address [address] [place] [phone] Care Team Providers Care Collection Correspondent Name Role Phone Joshua Gongora Primary Care [...] 3 days a week Active Clobetasol Prop Oint-Newport Tar 0.05 & 2.3 % as directed [...] Location Date Provider Diagnosis Joshua Gongora MD [address] [place] [phone] 02/11/2024 Joshua Gongora Bowel habit changes R19.4 [...] - Z87.448) referral back to urology in [place] 02/11/2024 Pure hypercholesterolemia (ICD-10 - E78.00) stable, [...] hematuria referral back to ken avilez in [place] Pure hypercholesterolemia stable, will felicia ontinue to monitor Vitamin D deficiency stable, will canelo rosas current regiment Colon cancer screening guaiac positive Depression screening negative screen Referrals Referral Date Details 02/11/2024 02/11/2024, bowel waddell bit changes , Jake Abelardo 02/11/2024 02/11/2024, history of hematuria , Teofilo Fletcher Next Appt Details Follow Up: 2 Months, Reason: Provider Name:Joshua small, 07/19/2024 10:00:00 AM, [address] [place] [address], Suite [facility], [place], [place], [phone], Provider Name:Joshua diazr, 02/10/2025 07:00:00 AM, [address] [place] [address], Suite [facility], [place], [place], [phone], Provider Name:Joshua diazr, 02/17/2025 08:30:00 AM, [address] [place] [address], Suite [facility], [place], [place], [phone], Progress Notes * Kathy FREEMAN MDOB:1950 (73 yo F)Acc No.[id number]:02/11/2024 Patient:?Kathy Freeman Provider:?Joshua Gongora MD :1950???Age:73 Y???Sex:Female D ate:02/11/2024 Address:[facility] K[address], So [facility] [place] Subjective: * Chief Complaints: * ???comp visit/ must see U/A * HPI: ???Depression Screening:?PHQ-9?Little interest or pleasure in doing things?Not at all,?Feeling down, depressed, or hopeless?Not at all,?Trouble falling or staying asleep, or sleeping too much?Not at all,?Feeling tired or having little energy?Not at all,?Poor appetite or overeating?Not at all,?Feeling bad about yourself or that you are a failure, or have let yourself or your family down?Not at all,?Trouble concentrating on things, such as reading the newspaper or watching television?Not at all,?Moving or speaking so slowly that other people could have noticed; or the opposite, being so fidgety or restless that you have been moving around a lot more than usual?Not at all,?Thoughts that you would be better off or of hurting yourself in some way?Not at all,?Total Score?0.?Interpretation and Intervention?Depression Screening Findings?Negative,?Follow-Up for Depression?: review of PHQ-9 found negative result, no follow-up needed.? patient is a 73 yo female here or review of recent labs and follow up of chronic issues, having abdominal pain and frequent bm. several times per day. eliminating dairy and it helps a little. ???Communication Needs:?Communication Needs?Does the patient have a hearing impairment?No,?Does the patient have a vision impairment??Yes,?If yes, what is the vision impairment??Glasses,?Does the patient have a cognition impairment??No.?Fall Risk:?History?Have you had any falls with injury in the past year??No,?Have you had two or more falls in the past year??No.?SDOH Questions:?SDOH Questions?In the past year have you been worried about losing housing??No,?In the past year have you or any family members you live with been unable to get any of the following when it was really needed? Check all that apply:?None.? * ROS:?General/Constitutional:?Patient denies?fatigue , headache.?Change in appetite?denies.?Chills?denies.?Fever?denies.?Ophthalmologic:?Blurred vision?denies.?Discharge?denies.?Pain?denies.?ENT:?Patient denies?decreased sense of smell , any loss of taste , sore throat.?Decreased hearing?denies.?Sore throat?denies.?Swollen glands?denies.?Endocrine:?Cold intolerance?denies.?Excessive thirst?denies.?Heat intolerance?denies.?Weight loss?denies.?Respiratory:?Cough?denies.?Shortness of breath at rest?denies.?Shortness of breath with exertion?denies.?Wheezing?denies.?Cardiovascular:?Chest pain at rest?denies.?Chest pain with exertion?denies.?Irregular heartbeat?denies.?Shortness of breath?denies.?Gastrointestinal:?Abdominal pain?denies.?Change in bowel habits?denies.?Diarrhea?denies.?Nausea?denies.?Rectal bleeding?denies.?Vomiting?denies .?Genitourinary:?Blood in urine?denies.?Difficulty urinating?denies.?Frequent urination?denies.?Urinary incontinence?Denies.?Musculoskeletal:?Patient denies?muscle aches.?Painful joints?denies.?Weakness?denies.?Peripheral Vascular:?Patient denies?red and blue toes.?Skin:?Dry skin?denies.?Itching?denies.?Denies?Mole(s),? changes in moles, new moles or any lesions of concern.?Denies?Photosensitivity.?Rash?denies.?Neurologic:?Dizziness?denies.?Fainting?denies.?Headache?denies.? * Medical History:? * Surgical History:? * Hospitalization/Major Diagno stic Procedure:? * Family History:?Father: dece ased 76 yrs, diagnosed with Diabetes, Hypertension.?Mother: 90 yrs.?1 sister(s) - healthy. .? mother, renal failure, Denies mental health/substance abuse family history, Denies mental health/substance abuse family history, Denies mental health/substance abuse family history. * Social History:?Tobacco Use:?Tobacco Use/Smoking?Patient is a?current smoker,?How often do you smoke cigarettes??every day,?How many cigarettes a day do you smoke??5 or less,?How soon after you wake up do you smoke your first cigarette??after 60 minutes,?Are you interested in quitting??Thinking about quitting,?Additional Findings: Tobacco User?Current cigarette smoker, not currently using another form of tobacco.?Drugs/Alcohol:?Alcohol Screen?Did you have a drink containing alcohol in the past year??Yes,?How often did you have a drink containing alcohol in the past year??Monthly or less (1 point),?How many drinks did you have on a typical day when you were drinking in the past year??1 or 2 drinks (0 point),?How often did you have 6 or more drinks on one occasion in the past year??Never (0 point),?Points?1,?Interpretation?Negative.?Miscellaneous:?no Caffeine. no Children. Community involvements: yes. Exercise: yes, daily or at least 5 times per week walks 5 timesa week chair yoga. Home smoke detector use: yes. Housing: owning. Living with: alone. Marital status: single. Occupation: retired. Pets: none. no Travel outside of the [place]. ???Using electronic cigarette. * Medications:?TakingLevothyro xine Sodium 100 MCG Tablet 1 tablet on an empty stomach in the morning Orally 4 TIMES a weekLevothyroxine Sodium 88 MCG Tablet 1 tablet on an empty stomach in the morning Orally 3 days a weekClobetasol Prop Oint-Newport Tar 0.05 & 2.3 % Kit as [...] Orally 3 days a weekTaking Clobetasol Prop Oint-Newport Tar 0.05 & 2.3 % Kit as directed Externally Taking Ketoconazole 2 % Cream 1 application Externally QODTaking Vitamin D 2000 UNIT Tablet 1 tablet Orally every other dayNot- Taking/PRNLORazepam 0.5 MG Tablet 1 tablet as needed [...] reviewed and reconciled with the patient * Allergies:?fragrance in myco log: iam sultana[Allergies Verified] Objective: * Vitals:?Ht: 62.00, Wt:115, B ID:21.03, BP:128/86. * ???Past Orders: ???Lab:Comprehensive [place]. P beni Fast (Order Date - 02/04/2024) (Collection Date - 02/04/2024) ? Value Reference Range ?Sodium 142 135-145 - mmo l/L ?Bilirubin Total 0.5 0.0- 1.0 - mg/dL ?Aspartate Amino Transferase 25 5-31 - U/L ?Alanine Aminotransferase 18 0-31 - U/L ?Total Protein 6.6 6.5-8. 0 - g/dL ?Albumin Level 3.8 3.5-5. 0 - g/dL ?Alkaline Phosphatase 69 39-117 - U/L ?Potassium 3.8 3.3-5.1 - mmol/L ?Chloride 106 96-108 - mm ol/L ?Carbon Dioxide 30 H 22-29 - mmol/L ?Anion Gap 10 L 12-20 - ?Blood Urea Nitrogen 14 9-16 - mg/dL ?Creatinine 0.65 0.5-1.4 - mg/dL ?Estimated Glomerular Filt Rate > 60 - ?Glucose Fasting 80 60-9 9 - mg/dL ?Calcium 9.9 8.4-10.2 - m g/dL ???Lab:Lipid Panel (Order Da 02/04/2024) (Collection Date - 02/04/2024) ? Value Reference Range ?Triglycerides 103 <150 - mg/dL ?Cholesterol 234 H <200 - m g/dL ?LDL Cholesterol Calculated 128 H <100 - mg/dL ?HDL Cholesterol 86 >40 - mg/dL ???Lab:Vitamin D 25-OH Total (Order Date - 02/04/2024) (Collection Date - 02/04/2024) ? Value Reference Range ?Vitamin D 25-OH Total 60.6 >30 - ng/mL ???Lab:TSH reflex Free T4 (O rder Date - 02/04/2024) (Collection Date - 02/04/2024) ? Value Reference Range ?TSH reflex Free T4 4.02 H 0 .32-4.0 - uIU/mL ???Lab:Free T4 (Free Thyroxi ne) (Order Date - 02/04/2024) (Collection Date - 02/04/2024) ? Value Reference Range ?Free T4 (Free Thyroxine) 0.96 0.71-1.85 - ng/dL ???Lab:Complete Blood Count Auto Diff (Order Date - 02/04/2024) (Collection Date - 02/04/2024) ? Value Reference Range ?White Blood Count 7.7 4. 8-10.8 - X10*3/uL ?Red Blood Count 4.41 4.20 -5.50 - X10*6/uL ?Hemoglobin 13.3 12.0-16.0 - g/dl ?Hematocrit 41.0 37.0-47.0 - % ?Mean Corpuscular Volume 93.0 80.0-98.0 - fL ?Mean Corpuscular Hemoglobin 30.2 27.0-33.0 - pg ?Mean Corpuscular HGB Conc 32.4 31.0-35.0 - g/dl ?Red Cell Distribution Width 13.5 11.0-16.0 - % ?Platelet Count 223 160-4 00 - X10*3/uL ?Mean Platelet Volume 11.1 9.4-12.3 - fL ?Neutrophils Percent Auto 41.2 L 45-73 - % ?Imm Gran Pct Auto 0.3 0. 0-0.4 - % ?Lymphocytes Percent Auto 46.1 H 20-40 - % ?Monocytes Percent Auto 7.5 2-11 - % ?Eosinophils Percent Auto 3.7 0-4 - % ?Basophils Percent Auto 1.2 0-2 - % ?NRBC Pct Auto 0.0 0.0-0. 2 - /100WBC ?Neutrophils Absolute Auto 3.2 2.0-8.3 - x10*3/uL ?Imm Gran Abs Auto 0.02 0. 00-0.03 - X10*3/uL ?Lymphocytes Absolute Auto 3.5 1.2-4.9 - X10*3/uL ?Monocytes Absolute Auto 0.6 0.1-1.2 - X10*3/uL ?Eosinophils Absolute Auto 0.3 0.0-0.4 - X10*3/uL ?Basophils Absolute Auto 0.1 0.0-0.2 - X10*3/uL ?NRBC Abs Auto 0.000 0.0-0. 012 - X10*3/uL * Examination: ???General Examination: ?GENERAL APPEARANCE:?well developed, well nourished, in no acute distress.?HEAD:?normocephalic, atraumatic.?EYES:?pupils equal, round, reactive to light and accommodation, sclera non-icteric.?EARS:?normal.?ORAL CAVITY:?mucosa moist.?THROAT:?clear.?NECK/THYROID:?neck supple, full range of motion, no cervical lymphadenopathy, no bruits.?SKIN:?warm and dry, no suspicious lesions.?HEART:?regular rate and rhythm, S1, S2 normal, no murmurs.?LUNGS:?clear to auscultation bilaterally.?BREASTS:?No mass, no lump.?ABDOMEN:?soft, nontender, nondistended, bowel sounds present, normal, no organomegaly , no masses palpable.?RECTAL EXAM:?stool guaiac negative , stool guaiac positive.?FEMALE GENITOURINARY:?done by biodiesel production technician.?EXTREMITIES:?no clubbing, cyanosis, or edema.?NEUROLOGIC:?nonfocal, motor strength normal upper and lower extremities, sensory exam intact.? 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 Plan: * Treatment: 2.?Iodine hypothyroidism? Continue Levothyroxine Sodium Tablet, 100 MCG, 1 tablet on an empty stomach in the morning, Orally, 4 TIMES a week;?Continue Levothyroxine Sodium Tablet, 88 MCG, 1 tablet on an empty stomach in the morning, Orally, 3 days a week.?? Notes: leave on present meds.?? 3.?History of hematuria? Notes: referral back to urology in [place]? Referral To:ROSSANA ASENCIO??Urology ?Reason:history of hematuria 4.?Pure hypercholesterolemia ? Notes: stable, will continue to monitor?? 5.?Vitamin D deficiency? Continue Vitamin D Tablet, 2000 UNIT, 1 tablet, Orally, every other day.?? Notes: stable, will contiue current regiment?? 6.?Colon cancer screening?LAB: Occult Blood, Stool, Guaiac?Positive ? Value Reference Range ?Occult Blood, Stool, Guaiac pos Notes: guaiac positive??7.?Depression screening? Notes: negative screen?? * Procedure Codes:?22196 TEST FOR BLOOD, FECES * Follow Up:?2 Months * * Sign off status: Completed true * Provider:?Joshua Gongora MD Date:?1 04/12/2023 Generated for Alfonzo christianson/Poncho/Chingitting on:?07/11/2024 12:49 PM EDT History and Physical Notes * [...] patient have a vision impairmen t?: Yes ?If yes, what is the vision impairment?: Glasses Does the patient have a cognition impair ment?: No Examination Category Sub-Category Detail Notes Category Not es General Examination GENERAL APPEARANCE: well dev eloped, well nourished, in no acute distress HEAD: normocephalic, atrau matic EYES: pupils equal, round, reactive to light and accommodation, sclera non- icteric EARS: normal THROAT: clear NECK/THYROID: neck supple, [...] stool guaiac positive FEMALE GENITOURINARY: done by biodiesel production technician ORAL CAVITY: mucosa moist Consultation Request Notes Referral Date Referring Provider Referred Provider Not es 02/11/2024 Joshua Gongora Bernard bowel habit changes 02/11/2024 Joshua Gongora Jonathan histo ry of hematuria
--- OUTSIDE RECORDS SUMMARY | 2024-07-11 12:50 | XMS_ITS ---
Author Organization Joshua Gongora MD Address [address] [place] [phone] Care Team Providers Care Rd Lab Technician Name Role Phone Joshua Gongora Primary [...] Externally Twice a day Unknown Clobetasol Prop Oint-Linn Tar 0.05 & 2.3 % as directed [...] Problem Status W/U Status Risk Notes Problem [id number] Irritable bowel syndrome with diarrhea (K58.0) Active confirmed Vital Signs Blood pressure systolic 134 mm Hg 04/11/19 25 Blood pressure diastolic 76 mm Hg 025 Height 62.00 in 04/11/2024 Weight 119 lbs 04/11/2024 BMI 21.76 kg/m2 04/11/2024 weight is up 4 pounds since 02-11-24 Encounters Encounter Location Date Provider Diagnosis Joshua Gongora MD [address] [place] [address] [address] [place], [place] [phone] 04/11/2024 Joshua Gongora History of hematuria Z87.448 [...] results of the cat scan to her greeter 04/11/2024 Irritable bowel syndrome with diarrhea (ICD-10 [...] results of the cat scan to her greeter Irritable bowel syndrome with diarrhea g oing to see dr upton next week Next Appt Details Follow Up: 3 Months, Reason: Provider Name:Joshua Sainz ier, 07/19/2024 10:00:00 AM, [address] [place] [address], [address], [place], [place], [phone], Provider Name:Joshua Sainz ier, 02/10/2025 07:00:00 AM, [address] [place] [address], Suite [facility], [place], [place], [phone], Provider Name:Joshua Sainz ier, 02/17/2025 08:30:00 AM, [address] [place] [address], Suite [facility], [place], [place], [phone], Progress Notes * Kathy FREEMAN MDOB:1950 (73 yo F)Acc No.[id number]:04/11/2024 Patient:?Kathy Freeman M Provider:?Joshua Gongora MD :1950???Age:73 Y???Sex:Female D ate:04/11/2024 Address:[address] [place] [address] [id number] Subjective: * Chief Complaints: * ???2 month/ must see ovarian cyst * HPI: ???Symptom(s):? patient is a 73 yo female here for 2 month follow up of hematuria work up. * ROS:?General/Constitutional:?Denies?Chills.?Denies?Fatigue.?Denies?Fever.?Denies?Headache.?ENT:?Patient denies?decreased sense of smell , any loss of taste , sore throat.?Denies?Sore throat.?Respiratory:?Denies?Cough.?Denies?Shortness of breath at rest.?Denies?Shortness of breath with exertion.?Gastrointestinal:?Denies?Diarrhea.?Denies?Nausea.?Musculoskeletal:?Patient denies?muscle aches.?Peripheral Vascular:?Patient denies?red and blue toes.? * Medical History:? * Surgical History:? * Hospitalization/Major Diagno stic Procedure:? * Medications:?TakingClobetaso l Prop Oint-Linn Tar 0.05 & 2.3 % Kit as [...] tablet Orally every other dayTaking Clobetasol Prop Oint-Linn Tar 0.05 & 2.3 % Kit as [...] iam sultana[Allergies Verified] Objective: * Vitals:?Ht: 62.00, Wt: 119, BMI:21.76, BP:134/76, Wt-k.98 weight is up 4 pounds since 02-11-24. * Examination: ???General Examination: ?GENERAL APPEARANCE:?alert, well hydrated, in no distress.?HEAD:?normocephalic.?SKIN:?good turgor.?HEART:?regular rate and rhythm , no murmurs, rubs, gallops.?LUNGS:?no wheezes, rales, rhonchi , good air movement , clear to auscultation bilaterally.? 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 Plan: * Treatment: 2.?Cyst of ovary, unspecifie d laterality? Notes: bring the results of the cat scan to her greeter?? 3.?Irritable bowel syndrome with diarrhea? Notes: going to see dr upton next week?? * Procedure Codes:? * Follow Up:?3 Months * * Sign off status: Completed true * Provider:?Joshua Gongora MD Date:?0 04/11/2024 Generated for Alfonzo christianson/Poncho/eTransmitting on:?07/11/2024 12:49 PM EDT History and Physical [...]
--- OUTSIDE RECORDS SUMMARY | 2024-07-11 12:50 | XMS_ITS | Encounter Summary ---
Author Organization [facility] Address [address] [place] [address] Care Team Providers Care Sales Hunter Name Role Phone Unavailable Primary Care Provider Unavailabl e Encounter Details Date Type Department Care Team (Late st Contact Info) Description 02/23/2024 Lab Requisition [facility] - Main Lab [address] [facility] [place] [address] Teofilo Fletcher MD [address] [facility] [address] [place] [phone] Benign essential microscopic hematuria Social History Tobacco Use Types Packs/Day Years Used Date Smoking Tobacco: Never Assessed Comments Unknown Sex and Gender Information Value Date Recorded Sex Assigned at Not on file Legal Sex Female 3:04 AM EST Gender Identity Not on file Sexual Orientation [...] and pathological findings. 03/15/2024 8:59 AM EST [facility] Addendum electronically signed by Mark Young MD on 03/15/2024 at 8:59 AM Final Diagnosis Urine, Voided: Negative for high grade urothelial carcinoma. Acute inflammatory cells present. Note: UroVysion testing to follow. 03/15/2024 8:59 AM EST [facility] Gross Description A. Urine, Voided, : [id number] Recd 1 TP CYTO 1 TP FISH 03/15/2024 8:59 AM EST [facility] Disclaimer Unless otherwise specified, all tissue is 10% NB formalin fixed and paraffin embedded. 03/15/2024 8:59 AM [facility] Tissue Urine specimen from urethra / Unknown 02/15/2024 02/23/2024 1:55 PM EST us Teofilo Fletcher MD LAB PATHOLOGY ORDERABLES Edited Result - Final [facility]) [facility] [address] [place] [address], documented in this encounter Visit Diagnoses Diagnosis Benign essential microscopic hematuria documented in this encounter
--- OUTSIDE RECORDS SUMMARY | 2024-07-11 12:50 | XMS_ITS | Clinical Summary ---
Author Organization [address] Address [address] [place] [address] Phone Care Team Providers Care Paper Deliverer Name Role Phone Unavailable Primary Care Provider Unavailabl e Social History Tobacco Use Types Packs/Day Years Used Date Smoking Tobacco: Never Assessed Comments Unknown Sex and Gender Information Value Date Recorded Sex Assigned at Not on file Legal Sex Female 3:04 AM EST Gender Identity Not on file Sexual Orientation Not on file Plan of Treatment Health Maintenance Due Date Last Done Comments DTaP,Tdap,and Td Vaccines (1 - Tdap) 10/21/1970 Pneumococcal Vaccine: 50+ Years (1 of 1 - PCV) 10/21/2001 Zoster Vaccines (1 of 2) 10/21/2001 Colorectal Cancer Screening: Colonoscopy 03/09/2022 Depression Screening 03/09/2022 Falls Risk Assessment 03/09/2022 Hepatitis C Screening 03/09/2022 Medicare Annual Wellness Visit 03/09/2022 Osteoporosis Screening (Bone Density Screening) 03/09/2022 Social Influencers of Health Screening 03/09/2022 COVID-19 Vaccine ( season) 2023 Influenza Vaccine (#1) 2023 Breast Cancer Screening 10/25/2025 10/26/19 24, 10/09/2022, 09/30/2021, Additional history exists RSV Immunization Adult Patients (1 - 1-dose 75+ series) 10/21/2026 HIB [...] patient's age to complete this topic Meningococcal B Vacine Aged Out No lo nger eligible based on patient's age to complete this topic RSV Immunization Patients Under 20 months Aged Out No longer eligible based on patient's age to complete this topic Varicella Vaccines Aged Out No longer eligible based on patient's age to complete this topic Procedures Procedure Name Priority Date/Time Associated Diagnosis Comments [facility] SCREENING DIGITAL Routine 10/26/2023 12:54 PM EDT Encounter for screening mammogram for malignant neoplasm of breast from Last 3 Months or Most Recently Relevant to Health Maintenance Results * [facility] SCREENING DIGITAL (10/26/2023 12:54 PM EDT) Anatomical Region Laterality Modality Mammography 10/26/2023 10:0 2 AM EDT Narrative 10/26/2023 12:[address] [facility] Diagnostic Imaging Department [address] [place], [place] [phone] Patient: ??JOHNNY FREEMAN ?/Age/Sex: 1950 73 - F Unit#: ??[id number] ? Location/Status: ??SPDIMAM/REG CLI ? Mnemonic/Ordering Site: ??DIGSC/SPMAM Ordering Physician: ??JOSHUA VASQUEZ MD [facility] Screening Digital - 10/26/23 - 1025 Report Status:Signed EXAM: [facility] Screening Digital EXAM DATE AND TIME: 10/26/2023 10:26 AM HISTORY: ??Annual screening COMPARISON: ??10/09/2022, 09/30/2021, 09/28/2020, 09/27/2019 and 07/12/2018 TECHNIQUE: Bilateral digital breast tomosynthesis was performed in the CC and MLO projections. Computer aided detection with [employer] 7.2-H and [employer] 3D 3.1 was employed. TISSUE DENSITY: c. [...] Procedure Note Flako Shaw MD - 01/20/2024 [facility] Diagnostic Imaging Department [address] [place] [address] Patient: JOHNNY FREEMAN Teresa Rob/Age/Sex: 1950 - 73 - F Unit#: [id number] Location/Status: SPDIMAM/REG CLI [facility] Physician: JOSHUA VASQUEZ MD [facility] Screening Digital - 10/26/23 - 1025 Report Status:Signed EXAM: [facility] Screening Digital EXAM DATE AND TIME: 10/26/2023 10:26 AM HISTORY: Annual screening COMPARISON: 10/09/2022, 09/30/2021, 09/28/2020, 09/27/2019 and 07/12/2018 TECHNIQUE: Bilateral digital breast tomosynthesis was performed in the CCand MLO projections. Computer aided detection with [employer] 7.2-H and[employer] 3D 3.1 was employed. TISSUE DENSITY: c. [...] 1254 Joshua Vasquez MD IMG BI PROCEDURES Final Res ult from Last 3 Months or Most Recently Relevant to Health Maintenance Insurance MEDICARE
--- OUTSIDE RECORDS SUMMARY | 2024-07-11 12:50 | XMS_ITS ---
Author Organization Joshua Gongora MD Address [address] [place] [phone] Care Team Providers Care Repair Operator Name Role Phone Joshua Gongora Primary Care Provider Results Component Value Reference Range Notes TSH reflex Free T4 Reviewed date:07/11/2024 12:41:15 PM Interpretation: Performing Lab:[facility], [address] [place] [phone] Notes/Report: TSH reflex Free T4 1.40 0.32-4.0 uIU/mL REASON FOR VISIT TSH REFLEX FREE T 4 Encounters Encounter Location Date Provider Diagnosis Joshua Gongora MD [address] [place] [phone] 07/11/2024 Joshua Gongora 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 History of hematuria Z87.448 Assessments Encounter Date Diagnosis (ICD Code) Assessment Notes Treatment Notes Treatment Clinical Notes Section Notes 07/11/2024 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) 07/11/2024 History of hematuria (ICD-10 - Z87.448) Plan Of Treatment Next Appt Details Provider Name:Joshua Sainz ier, 07/19/2024 10:00:00 AM, [address] [place] [address], [place] [address], [place], [place], [phone], Provider Name:Joshua Sainz ier, 02/10/2025 07:00:00 AM, [address] [place] [address], [place] [address], [place], [place], [phone], Provider Name:Joshua Sainz ier, 02/17/2025 08:30:00 AM, [address] [place] [address], [phone], Progress Notes * Kathy FREEMAN MDOB:1950 (73 yo F)Acc No.[id number]:07/11/2024 Progress Note Patient:?Kathy FREEMAN Provider:?Joshua Gongora MD :1950???Age:73 Y???Sex:Female D ate:07/11/2024 Address:[address] [place] [address] Subjective: * Chief Complaints: * ???1. TSH REFLEX FREE T 4. * Medical History:? Objective: * Vitals:? 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 Plan: * Treatment: * Procedure Codes:?78638 VENIP UNCT, ROUTINE* * * The named appointment provid er may or may not be the originator of this progress note, and it is not deemed complete until electronically signed by the appointment provider. Sign off status: Pending * Provider:?Joshua Gongora MD Date:?0 07/11/2024 Generated for Alfonzo christianson/Poncho/Chingitting on:?07/11/2024 12:50 PM EDT
--- OUTSIDE RECORDS SUMMARY | 2024-07-11 12:50 | XMS_ITS ---
Author Organization [facility] Address [address] [place] [phone] Care Team Providers Care Bat Boy/Girl Name Role Phone Joshua Gongora MD Primary Care Provider Julieta Zhou Jr, Jake Phipps REASON FOR VISIT labs Encounters Encounter Location Date Provider Diagnosis [facility] [address] [place] [phone] 04/20/2024 Jake Zhou Jr Plan Of Treatment No Information Progress Notes * JOHNNY FREEMAN MDOB:1950 (73 yo F)Acc No.[id number]:04/20/2024 Patient:?JOHNNY FREEMAN :1950???Age:73 Y???Sex:Female Address:[address], [place] [address] * true * Date:? Generated for Carinai sammy/Poncho/eTransmitting on:?07/11/2024 12:50 PM EDT
--- OUTSIDE RECORDS SUMMARY | 2024-07-11 12:50 | XMS_ITS ---
Author Organization [facility] Address [address] [place] [phone] Care Team Providers Care Tie Up Worker Name Role Phone Joshua Gongora MD Primary Care Provider Julieta Zhou Jr, Jake Phipps REASON FOR VISIT pathology Encounters Encounter Location Date Provider Diagnosis [facility] [address] [place] [phone] 05/12/2024 Jake Zhou Jr Plan Of Treatment No Information Progress Notes * JOHNNY FREEMAN MDOB:1950 (73 yo F)Acc No.[id number]:05/12/2024 Patient:?JOHNNY FREEMAN :1950???Age:73 Y???Sex:Female Address:[address], [place] [address] * true * Date:? Generated for Carinai sammy/Poncho/eTransmitting on:?07/11/2024 12:50 PM EDT
--- OUTSIDE RECORDS SUMMARY | 2024-07-11 12:50 | XMS_ITS | Patient Health Record ---
Author Organization [facility] Address [address] [place] [address] Care Team Providers Care Saddle Mechanic Name Role Phone Rolan TEJADA, Joshua Primary Care Provider Julieta Zhou Jr, Jake Unavailable Allergies Allergen (clinical drug ingredient) Drug/Non Drug Allergy documented on EMR Reaction Allergy Type Onset Date Status mycolog cream (uncoded) Unknown Allergy Active Hair dye hair dye (uncoded) Unknown Allergy A ctive Results Component Value Reference Range Notes Transglutaminase IgA Reviewed date:04/20/2024 08:53:59 AM Interpretation: Performing Lab:[address] [phone] Notes/Report: Transglutaminase IgA <1.0 Value Interpretation ----- <15.0 Antibody not detected > or = 15.0 Antibody detected THIS TEST WAS PERFORMED AT: [facility] [address] [place] [phone] DIANA CABRERA MD Immunoglobulin A Reviewed date:04/20/2024 08:53:51 AM Interpretation: Performing Lab:[facility], [address] [place] [phone] Notes/Report: Immunoglobulin A 311 70-320 mg/dL THIS TEST WAS PERFORMED AT: [facility] [address] [place] [phone] DIANA CABRERA MD Pathology Reviewed date:05/12/2024 01:26:53 PM Interpretation: Performing Lab:[facility], [address] [place] [phone] Notes/Report: --- Name: Kathy Freeman Age/Sex: 73/F : 1950 Unit#: [id number] Attend Dr: Jake Zhou MD Re05/11/24 Status : [facility] Location: [facility] Disch: --- SPEC : [id number] RECD: 05/11/24-1406 STATUS: [facility] NUM: [id number] LON: 05/11/24-[address] [facility] [facility] [address]: Jake Zhou MD ENTERED: 05/11/24-14 17 SP TYPE: Surgical OTHR DR: Joshua Gongora MD ORDERED: HE Stain/9, Gross Micro L4/3 Diagnosis A. Colon, at 60 cm, polyp: Tubular adenoma; negative for high-grade dysplasia and carcinoma. B. Colon, sigmoid, biopsy: Colonic mucosa with no specific change. C. Colon, rectal chris yp: Tubular adenoma; negative for high-grade dysplasia and carcinoma. Clinical History Pre-Op Dx: Other fec al abnormalities Post-Op Dx: Polyps Microscopic Description Microscopic sections reviewed. Material Received A. Polyp at 60 cm B. Sigmoid bx's C. Rectal polyp Gross Description Received in three parts. Part A: Received in formalin labeled ?polyp at 60 cm? is a 0.35 cm ramsay-pink papular tissue fragment, submitted in toto in a cassette labeled A. Part B: Received in formalin labeled ?sigmoid bx's? are 2 ramsay and ramsay-pink irregular tissue fragments measuring 0.25 and 0.3 cm, submitted in toto in a cassette labeled B. Part C: Received in formalin labeled ?rectal polyp? is a 0.5 cm pale, ramsay-pink papular tissue fragment, submitted in toto in a cassette labeled C. CEDS CONTINUED ON NEXT PAGE --- Name: Kathy Freeman Age/Sex: 73/F : 1950 Unit#: [id number] Attend Dr: Jake Zhou MD Re05/11/24 Status : [facility] Location: [facility] Disch: --- SPEC : [id number] RECD: 05/11/24-9356 STATUS: [facility] NUM: [id number] LON: 05/11/24-[address] [facility] [facility] [address]: Jake Zhou MD ENTERED: 05/11/24-14 17 SP TYPE: Surgical OTHR DR: Joshua Gongora MD ORDERED: HE Stain/9, Gross Micro L4/3 Copies To: Joshua Gongora MD [facility] [address] [place] [address] [facility] [address] [place] [address] --- Signed (signature on file) Magdalena Gastonia 05/12/24 1305 --- END OF REPORT Reason For Referral No Information Medications Medication SIG (Take, Route, Frequency, Duration) Notes Start Date End Date Status Fluticasone Propionate 50 MCG/ACT 1 spray in each nostril Nasally prn Active Clobetasol Propionate 0.05% 1 applicatio n to affected area Externally twice a week Active Vitamin D 1000 UNIT 1 tablet Orally Once a day Active Levothyroxine Sodium 100 MCG 1 tablet Orally Once a day Active metroNIDAZOLE 0.75 % APPLY TWICE DAILY External for 30 Active Ketoconazole 2 % APPLY TO THE AFFECTE D AREA EVERY DAY External for 15 Active MiraLax (colon prep) 17 GM/SCOOP mixed with Gatorade or Crystal Light Orally begin at 5:00 p.m. the day before the procedure for 1 day 04/18/2024 Active Immunizations Vaccine Route Administration Date Status Comme nts Influenza Unknown 12/29/2023 Administered Problems Problem Type SNOMED Code ICD Code Onset Dates Problem Status W/U Status Risk Notes Problem [id number] Change in bowel habits (R19.4) Active confirmed Problem 24332917 Heme positive stool (R19.5) Active confirmed Vital Signs Temperature 97.8 degrees Fahrenheit 04/18/2024 Blood pressure diastolic 00 mm Hg 04/18/2024 Height 64 in 04/18/2024 Blood pressure systolic 000 mm Hg 04/18/2024 Weight 119 lb 4 oz lbs 04/18/2024 BMI 20.47 kg/m2 04/18/2024 Encounters Encounter Location Date Provider Diagnosis [facility] Outpatient [address] [facility] [place] [phone] 05/11/2024 Jake Zhou Jr Colon polyps K63.5 and Change in bowel habits R19.4 [facility] [address] [place] [phone] 04/18/2024 Jake Zhou Jr Change in bowel habits R19.4 and Heme positive stool R19.5 [facility] [address] [place] [phone] 04/20/2024 Jake Zhou Jr [facility] [address] [place] [phone] 05/12/2024 Jake Zhou Jr Assessments Encounter Date Diagnosis (ICD Code) Assessment Notes Treatment Notes Treatment Clinical Notes Section Notes 05/11/2024 Change in bowel habits (ICD-10 - R19.4) 05/11/2024 Colon polyps (ICD-10 - K63.5) 04/18/2024 Change in bowel habits (ICD-10 - R19.4) Colonoscopy material was printed We discussed her symptoms today. We discussed causes for changes in bowel habits. We recommended further evaluation with celiac testing. She will also undergo colonoscopy because of her change in bowel habits and Hemoccult-posit alix stools. We discussed risks and benefits of the procedure today. She understands these and agrees to proceed. This will be scheduled at her convenience. 04/18/2024 Heme positive stool (ICD-10 - R19.5) We discussed her symptoms today. We discussed causes for changes in bowel habits. We recommended further evaluation with celiac testing. She will also undergo colonoscopy because of her change in bowel habits and Hemoccult-posit alix stools. We discussed risks and benefits of the procedure today. She understands these and agrees to proceed. This will be scheduled at her convenience. Plan Of Treatment Pending Test Test Name Order Date IgA 04/18/2024 Future Test Test Name Order Date COLONOSCOPY 12/20/2014 COLONOSCOPY 04/18/2024 Insurance Providers Payer Name Payer Address Payer Phone Subscriber Number Group Number Insured Name Patient Relationship to Insured Coverage Start Date Coverage End Date MEDICARE OF [place] [address] [place] [address] [id number] PETEIAM SHEPPARDA Self - patient is the insured [employer] ([employer]) [address] [place] [address] [phone] [id number] IAM FREEMANA Self - patient is the insured Medical (General) History Medical History History ICD Code Colonoscopy 04/21, normal, and internal h emorrhoids, ten-year followup syncope anxiety hyperthyroidism headaches ovarian cyst Surgical History Surgery Date(Month/Year) tonsillectomy
== END 2024-07-11 10:46 | disposition home or self-care (01) ==
LOC: HO.LNP 10:45
PROVIDERS: Visit Provider Internal Medicine
DX: Z87.448 Personal history of other diseases of urinary system (principal)
CPT/HCPCS: 84443

== ENCOUNTER 2024-11-22 13:17 | Outpatient (AMB) | payer MEDICARE, OTHER, SELFPAY ==
--- OUTSIDE RECORDS SUMMARY | 2024-05-11 09:00 | XMS_ITS ---
Author Organization [facility] Address [address] [place] [phone] Care Team Providers Care White Hat Hacker Name Role Phone Rolan TEJADA, Joshua Primary Care Provider Julieta Zhou Jr, Jake Phipps REASON FOR VISIT change in bwl habits, heme positive stools Encounters Encounter Location Date Provider Diagnosis [facility] [address] [place] [phone] 05/11/2024 Jake Zhou Jr Colon polyps K63.5 and Change in bowel habits R19.4 Assessments Encounter Date Diagnosis (ICD Code) Assessment Notes Treatment Notes Treatment Clinical Notes Section Notes 05/11/2024 Colon polyps (ICD-10 - K63.5) 05/11/2024 Change in bowel habits (ICD-10 - R19.4) Plan Of Treatment No Information Progress Notes * JOHNNY FREEMAN MDOB:1950 (74 yo F)Acc No.[id number]:05/11/2024 COLON WITH MAC Patient: Kindra KOHLERJOHNNY Carias Provider: Ori Zhou MD :1950 A ge:73 Y S ex:Female Date:05/11/2024 Address:[address] [place] [address] Pcp:Joshua Gongora MD Subjective: * Chief Complaints: * 1 . Change in bwl habits, heme positive stools. * Medical History: Objective: * Vitals: Assessment: * Assessment: 1. C olon polyps - K63.5 (Primary) 2 . C hange in bowel habits - R19.4 Plan: * Treatment: * Procedure Codes: 4 5385 LESION REMOVAL COLONOSCOPY, 72065 COLONOSCOPY AND BIOPSY, Modifiers: 59 , 0553F INTRVL 3+YRS PTS CLNSCP DOCD * * The named appointment provid er may or may not be the originator of this progress note, and it is not deemed complete until electronically signed by the appointment provider. Sign off status: Pending * Provider: Ori Zhou MD Date: 0 05/11/2024 Generated for Alfonzo christianson/Poncho/Chingitting on: 0 11/22/2024 02:29 PM EDT
--- OUTSIDE RECORDS SUMMARY | 2024-08-26 06:15 | XMS_ITS ---
Author Organization Joshua Gongora MD Address [address] [place] [phone] Care Team Providers Care Group Reservations Coordinator Name Role Phone Joshua Gongora Primary [...] Provider Speciality Internal M edicine Referred Provider [facility] INFORMATION SERVICES CONSULTANT [employer], [facility] INFORMATION SERVICES CONSULTANT [employer] Referred Provider Specialty OB - Gynecol ogy General Notes SurendraCelinaEleonora 0 08/26/2024 10:49:58 AM >send US info faxed phone [phone], Eleonora Agosto 09/09/2024 02:14:26 PM > was told to call back in 2 weeks after 09-19, Eleonora Agosto 09/29/2024 03:23:08 PM > info was refaxed on 09-26-24 was told to refax to [phone] they have a wait list until the [...] 1 application Externally QOD Active Clobetasol Prop Oint-[place] Tar 0.05 & 2.3 % as directed [...] Location Date Provider Diagnosis Joshua Gongora MD [address] [place] [address] [address] [place], [place] [phone] 08/26/2024 Joshua Gongora Ovarian cyst N83.209 and [...] eval and treat for a second opinion, [facility] INFORMATION SERVICES CONSULTANT Group [facility] INFORMATION SERVICES CONSULTANT Group [facility] Next Appt Details Provider Name:Joshua small, 02/10/2025 07:00:00 AM, [address] [place] [address], [address], [place], [place], [phone], Provider Name:Joshua Sainz ier, 02/17/2025 08:30:00 AM, [address] [place] [address], [address], [place], [place], [phone], Progress Notes * Kathy FREEMAN MDOB:1950 (73 yo F)Acc No.[id number]:08/26/2024 Progress Notes Patient: Kathy BLAS Teresa Provider: Yashira Gongora MD :1950 A ge:73 Y S ex:Female Date:08/26/2024 Address[place] [place] [address] [id number] Subjective: * Chief Complaints: * 1 month [...] stic Procedure: * Medications: T akingClobetasol Prop Oint-[place] Tar 0.05 & 2.3 % Kit as [...] Externally Twice a day Taking Clobetasol Prop Oint-[place] Tar 0.05 & 2.3 % Kit as [...] 08/26/2024 Generated for Alfonzo christianson/Poncho/Chingitting on: 0 11/22/2024 02:29 PM EDT History and Physical Notes * [...] Referred Provider Not es 08/26/2024 Joshua Gongora [facility] INFORMATION SERVICES CONSULTANT Group Inc, [facility] INFORMATION SERVICES CONSULTANT Group [facility] Ovarian cyst eval and treat for a second opinion
--- OUTSIDE RECORDS SUMMARY | 2024-11-22 14:29 | XMS_ITS | Patient Health Record ---
Author Organization [facility] Address [address] [facility] [place] [address] Care Team Providers Care Executive Associate Name Role Phone Joshua Gongora MD Primary Care Provider Bereket Iraheta Unavailable [phone] Allergies Allergen (clinical drug ingredient) Drug/Non Drug Allergy documented on EMR Reaction Allergy Type Onset Date Status Mycolog creme, hair dye (uncoded) Unknown Allergy Active Adhesive Tape Unknown Drug Allergy Act alix Reason For Referral No Information Medications Medication SIG (Take, Route, Frequency, Duration) Notes Start Date End Date Status Clobetasol Prop Oint-[place] Tar Active Levothyroxine Sodium Active metroNIDAZOLE Not-Ta isaiah Social History Tobacco use other than smoking: Question Answer Notes Are you an other tobacco user? No Problems Problem Type SNOMED Code ICD Code Onset Dates Problem Status W/U Status Risk Notes Problem Acquired hallux valgus (12031050) Hallux valgus (acquired), left foot (M20.12) Active confirmed Problem Acquired hallux valgus (82306328) Hallux valgus (acquired), right foot (M20.11) Active confirmed Plan Of Treatment Pending Test Test Name Order Date X ray : Foot, left 2V 10/04/2014 X ray : Foot, right 2V 10/04/2014 Insurance Providers Payer Name Payer Address Payer Phone Subscriber Number Group Number Insured Name Patient Relationship to Insured Coverage Start Date Coverage End Date [facility] [address] [place] [id number] Kathy Su Self - patient is the insured Medical (General) History Medical History History ICD Code Back,Hip,and Knee pain Headaches Hiatal hernia Thyroid disorder Chicken pox Measles
--- OUTSIDE RECORDS SUMMARY | 2024-11-22 14:29 | XMS_ITS | Clinical Summary ---
Author Organization [facility] Address [address] [place] [phone] Phone Care Team Providers Care Diesel Stationary Engineer Name Role Phone Joshua Gongora MD Primary Care Provider Allergies Active Allergy Reactions Criticality Noted Date Comments Nystatin-Triamcinolone 12/23/2016 Other reaction(s): blisters Nitrates 12/23/2016 Other reaction(s): headaches Other Unknown 12/23/2016 Other reaction(s): rash Medications levothyroxine (SYNTHROID, LEVOTHROID) 100 MCG tablet 100 x2 days per week Active fluticasone propionate (FLONASE) 50 mcg/actuation nasal spray 1 spray by Each Nare route daily. Active acetaminophen (TYLENOL) 325 mg tablet Take 1 tablet by mouth every 6 (six) hours as needed. Active levothyroxine (SYNTHROID, LEVOTHROID) 88 MCG tablet TAKE 1 TABLET BY MOUTH DAILY THURSDAY THROUGH Thursday 2 Active metroNIDAZOLE (METROGEL) 1 % gel Apply topically daily. Active ketoconazole 2 % cream Apply topically daily. Active cholecalciferol (VITAMIN D3) 2,000 unit tablet 1 tablet Orally every other day Active clobetasol (TEMOVATE) 0.05 % ointmentIndicat ions:Lichen sclerosus Apply topically 2 (two) times a week. (8th G) lentil sized amount to vulva, 6 month supply 30 g 1 5 Active hyoscyamine (LEVBID) 0.375 mg 12 hr tablet Take 1 tablet by mouth every morning. 5 Active valACYclovir (VALTREX) 500 MG tablet Take 500 mg by mouth 2 (two) times a day. Active Active Problems Problem Noted Date Diagnosed Date Right ovarian cyst 05/03/2024 Assessment & Plan (08/12/2024 10:23 AM EDT): Today's US compared with 3 months ago shows persistence of all the cysts; all around the same size, although the largest one which is 3cm has slightly large measurements and again has a small nodule. She has IBS but no symtpoms that seem different than her baseline We discuss that my estimation of cancer risk from this is <10%. I discuss surgery and that bilateral salpingo-oophorectomy is recommended. Discuss recovery as well as small risks of significant complication with anesthesia or surgery, such as bowel injury. Based on this balance of risks, I do think it is reasonable to either proceed with surgery, or repeat imaging and Ca125 at short interval. For now she again chooses continued surveillance; but is open to surgery should I at some point strongly recommend it. I also give her the option for second opinion with lehr stripper oncologist; with knowledge that these referrals generally lead to surgery plan. 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 Refill given, no change in management Exam with 100% phimosis of schumacher, partial resorption of the labia minora No skin changes of concern Some sebaceous cysts Assessment & Plan (06/19/2022 9:55 AM EDT): Continue twice weekly clobetasol and yearly vulvar exam Assessment & Plan (01/10/2020 11:19 AM EDT): Using regularly. No symptoms. Exam with stable architectural changes and hypopigmentation at creases, but no lesions or keratosis Continue regimen, yearly exam Encounters Date Type Department Care Team Description 11/21/2024 10:00 AM EDT [facility] [address] [place] [address] [place] [id number] Susan Merchant MD Right ovarian cyst (Primary Dx) 11/16/2024 9:19 AM EDT - 11/16/2024 11:59 PM EDT Hospital Encounter [facility] [address] [place] [address] Susan Merchant MD Discharge Disposition: Home or Self Care 11/16/2024 Telephone [facility] [address] [place] [address] [place] [id number] Susan Merchant MD 08/24/2024 Telephone [facility] [address] [place] [address] [place] [id number] Susan Merchant MD Test Results from Last 3 Months Immunizations Immunization Administration Dates Next Due INFLUENZA, SPLIT VIRUS, TRIVALENT PF ,02/07/2019,02/22/2018,03/24,01/24/2016 Influenza High-Dose Trivalen t Preservative Free IM 12/27/2020 Pneumococcal conjugate PCV13 09/22/2016 Pneumococcal polysaccharide PPSV23 01/05/2020 Tdap 04/20/2017 Zoster recombinant 02/12/2018,11/05/2017, 018 Family History Medical History Relation Comments Diabetes mellitus Father Hypertension Father CV disease Maternal Aunt Anemia Maternal Grandfather pernicious Hypertension Maternal Grandmother Hyperthyroidism Maternal Grandmother Atrial fibrillation Mother CV disease Mother Diabetes mellitus Mother Hypertension Mother CV disease Paternal Grandfather Heart attack Paternal Grandfather Cancer Paternal Grandmother ? stsomach, ? ovarian Relation Status Comments Father Maternal Aunt Maternal Grandfather Maternal Grandmother Mother Paternal Grandfather Paternal Grandmother Sister Alive Social History Tobacco Use Types Packs/Day Years Used Date Smoking Tobacco: Every Day Cigarettes Smokeless Tobacco: Never Tobacco Cessation:Ready to Q uit: Not Asked; Counseling Given: Not Answered Alcohol Use Standard Drinks/Week Comments Yes 0 (1 standard drink = 0.6 oz pur e alcohol) 2-3 monthly Education Answer Date Recorded Are you interested in more education? Not on samantha e 07/31/2022 Are you concerned about learning? Not on file 07/31/2022 No 07/31/2022 No 07/31/2022 Digital Access Answer Date Recorded No 09/01/2022 No 09/01/2022 Reliable internet access at home? Not on file 09/01/2022 Device with a working camera? Not on file Comments No Sex and Gender Information Value Date Recorded Sex Assigned at Not on file Legal Sex Female 7:21 PM EST Gender Identity Not on file Sexual Orientation Not on file Last Filed Vital Signs Vital Sign Reading Time Taken Comments Blood Pressure 120/64 11/21/2024 10:00 AM EDT Pulse 76 06/10/2020 2:13 PM EST Temperature 37.1 C (98.8 F) 06/10/2020 2:13 PM EST Respiratory Rate - - Oxygen Saturation 97% 06/10/2020 2:13 PM EST Inhaled Oxygen Concentration - - Weight 52.3 kg (115 lb 3.2 oz) 11/21/2024 10:00 AM EDT Height 157.5 cm (5' 2 ) 11/21/2024 10:00 AM EDT Body Mass Index 21.07 11/21/2024 10:00 AM EDT Plan of Treatment Health Maintenance Due Date Last Done Comments TSH LEVEL 1951 DEPRESSION SCREENING 1963 SMOKING Hx and SMOKELESS TOBACCO SCREENING 10/21/1964 HEPATITIS C SCREENING 10/21/1969 COLOGUARD 10/21/1996 COLONOSCOPY 10/21/1996 COLORECTAL CANCER SCREENING 10/21/1996 FIT TEST 10/21/1996 FOBT 10/21/1996 SIGMOIDOSCOPY 10/21/1996 VIRTUAL COLONOSCOPY 10/21/1996 COVID-19 VACCINE ( season) 2024 01/01/2024, 07/23/2023, 12/25/2022, Additional history exists MAMMOGRAM 10/09/2024 10/09/2022, 06/04, 07/12/2018, Additional history exists Adult Td,Tdap Booster 04/20/2027 04/20/2017 LIPID PANEL 01/27/2028 01/26/2023, 01/26/2023 ZOSTER VACCINES Completed 02/12/2018, 05/2017, 04/20/2017 PNEUMOCOCCAL VACCINES (50+ years) Completed 01/05/2020, 09/22/2016 OSTEOPOROSIS SCREENING INITIAL (ONE-TIME) Completed 01/23/2020, 01/21/2018 RSV VACCINE Completed 12/25/2022 HEPATITIS A VACCINES Aged Out No long er eligible based on patient's age to complete this topic HIB VACCINES Aged Out No longer eligi ble based on patient's age to complete this topic MENINGOCOCCAL VACCINES (ACWY) Aged Out No longer eligible based on patient's age to complete this topic MENINGOCOCCAL VACCINES (B) Aged Out N o longer eligible based on patient's age to complete this topic Medical Devices Not on file Procedures Procedure Name Priority Date/Time Associated Diagnosis Comments US PELVIS TRANSVAGINAL ONLY Routine 11/16/2024 9:58 AM EDT Right ovarian cyst HM MAMMOGRAPHY Routine 10/09/2022 BD DXA SPINE AND HIP WITH FOREARM Routine 01/23/2020 1:38 PM EDT Osteopenia, unspecified location Osteopenia of left hip Osteopenia of lumbar spine from Last 3 Months or Most Recently Relevant to Health Maintenance Results * US PELVIS TRANSVAGINAL ONLY (11/16/2024 9:58 AM EDT) Anatomical Region Laterality Modality Pelvis, Uterus/Adnexa Ultrasound 11/16/2024 10:0 0 AM EDT Impressions 11/16/2024 6:15 PM EDT 1. Heterogeneous uterus with at least 1 small mass consistent with a fibroid as described above. 2. The endometrium appears grossly normal measuring 1.9 mm with a trace of fluid within. 3. There are bilateral mostly anechoic avascular cysts as described above which are overall stable in size and appearance compared to previous films. 4. There is no free fluid. Narrative 11/16/2024 6:15 PM EDT Procedure: US PELVIS TRANSVAGINAL ONLY 11/16/2024 9:20 AM US Indications: Ovarian Cyst. Comparison: No relevant recent comparisons. Technique: Transvaginal sonographic evaluation of the pelvis only was performed. Color Doppler imaging was performed to assess vascularity. 3-D images were acquired and evaluated during image interpretation. Reported LMP: FINDINGS: Uterus: The uterus measurements acquired; 5.65 cm x 4.05 cm x 2.28 cm with volume of 27.32 ml. The uterus is retroverted in its positioning. The myometrium is heterogeneous with at least one mass suggestive of a fibroid. Fibroid 1: 0.98 x 0.79 x 0.97 cm. Left lateral, intramural. Previously 1.28 x 1.03 x 1.09 cm. Endometrium: The endometrium measures 0.19 cm and appears thin. No focal endometrial masses seen. A trace amount of fluid is identified within the endometrial canal. No focal cervical masses. Ovaries: The right ovary measures 3.67 cm x 4.13 cm x 2.62 cm with volume of 20.79 ml. Cysts again seen, one avascular with mural nodule. Cyst 1: 3.42 x 2.66 x 3.62 cm. Previously 3.51 x 2.83 x 3.71 cm Cyst 2: 1.21 x 1.27 x 0.90 cm. Previously 1.41 x 0.96 x 1.19 cm Cyst 3: 2.08 x 0.82 x 1.75 cm. Right Adnexa: No masses seen. The left ovary measures 1.95 cm x 2.14 cm x 1.24 cm with volume of 2.71 ml. Cysts again seen. Cyst 1: 1.17 x 1.82 x 0.84 cm. Previously 1.57 x 1.10 x 1.00 cm Cyst 2: 0.77 x 0.67 x 0.59 cm. Previously 0.73 x 0.65 x 0.60 cm Cyst 3: 0.73 x 0.36 x 0.66 cm. Previously 0.64 x 0.71 x 0.35 cm Left Adnexa: No masses seen. Cul de Sac: There is no evidence of free pelvic fluid. Tech Comments: Procedure Note Wayne Petit MD - 11/16/2024 Procedure: US PELVIS TRANSVAGINAL ONLY 11/16/2024 9:20 AM US Indications: Ovarian Cyst. Comparison: No relevant recent comparisons. Technique: Transvaginal sonographic evaluation of the pelvis only wasperformed. Color Doppler imaging was performed to assess vascularity.3-D images were acquired and evaluated during image interpretation. Reported LMP: FINDINGS: Uterus: The uterus measurements acquired; 5.65 cm x 4.05 cm x 2.28 cm with volumeof 27.32 ml. The uterus is retroverted in its positioning. Themyometrium is heterogeneous with at least one mass suggestive of afibroid. Fibroid 1: 0.98 x 0.79 x 0.97 cm. Left lateral, intramural. Previously1.28 x 1.03 x 1.09 cm. Endometrium: The endometrium measures 0.19 cm and appears thin. No focal endometrialmasses seen. A trace amount of fluid is identified within the endometrialcanal. No focal cervical masses. Ovaries: The right ovary measures 3.67 cm x 4.13 cm x 2.62 cm with volume of 20.79ml. Cysts again seen, one avascular with mural nodule. Cyst 1: 3.42 x 2.66 x 3.62 cm. Previously 3.51 x 2.83 x 3.71 cm Cyst 2: 1.21 x 1.27 x 0.90 cm. Previously 1.41 x 0.96 x 1.19 cm Cyst 3: 2.08 x 0.82 x 1.75 cm. Right Adnexa: No masses seen. The left ovary measures 1.95 cm x 2.14 cm x 1.24 cm with volume of 2.71ml. Cysts again seen. Cyst 1: 1.17 x 1.82 x 0.84 cm. Previously 1.57 x 1.10 x 1.00 cm Cyst 2: 0.77 x 0.67 x 0.59 cm. Previously 0.73 x 0.65 x 0.60 cm Cyst 3: 0.73 x 0.36 x 0.66 cm. Previously 0.64 x 0.71 x 0.35 cm Left Adnexa: No masses seen. Cul de Sac: There is no evidence of free pelvic fluid. Tech Comments: IMPRESSION: 1. Heterogeneous uterus with at least 1 small mass consistent with afibroid as described above. 2. The endometrium appears grossly normal measuring 1.9 mm with a traceof fluid within. 3. There are bilateral mostly anechoic avascular cysts as described abovewhich are overall stable in size and appearance compared to previousfilms. 4. There is no free fluid. us Susan Merchant MD IMG US PELVIS Final Resu lt * HM MAMMOGRAPHY FOR RESULT ENTRY ONLY (10/09/2022) us Susan Merchant MD HEALTH MAINTENANCE Final R esult * BD DXA SPINE AND HIP WITH FOREARM (01/23/2020 1:38 PM EDT) Anatomical Region Laterality Modality Bone Density Bone Density 01/23/2020 4:39 PM EDT Impressions 01/23/2020 4:43 PM EDT Osteopenia with interval decrease in left distal forearm and bilateral hip bone mineral density since 2018. POS - [id number] Narrative 01/23/2020 4:43 PM EDT This is a 69-year-old postmenopausal white female with a documented history of osteopenia. She is not on estrogen replacement therapy, takes occasional calcium supplements, denies a family history of osteoporosis, and describes a perceived height loss of approximately 1/4 inch. Evaluation of the left distal forearm, lumbar spine, and hips was performed and felt to be technically adequate with comparison made to multiple prior studies, most recently 01/21/2018. Total bone mineral density in the distal forearm was calculated at 0.450 g/CM square with a T-score of -2.2 and Z-score of -0.3, falling within the WHO classification of osteopenia and representing a 4% decline since 2018 Total bone mineral density in the L2-L4 vertebral bodies was calculated at 0.897 gm/cm2 with a T-score of -1.7 and Z-score of 0.4, falling within the WHO classification of osteopenia, without significant interval change from 2018. Total bone mineral density in the right hip was calculated at 0.669 gm/cm2 with a T-score of -2.2 and Z-score of -0.8 falling within the WHO classification of osteopenia, representing an interval decline of 7.4% since 2018. Total bone mineral density in the left hip was calculated at 0.685 gm/cm2 with a T-score of -2.1 and Z-score of -0.7 falling within the WHO classification of osteopenia, representing an interval decline of 3.9% since 2018. Procedure Note Mulugeta Angel MD - 01/23/2020 This is a 69-year-old postmenopausal white female with a documentedhistory of osteopenia. She is not on estrogen replacement therapy, takesoccasional calcium supplements, denies a family history of osteoporosis,and describes a perceived height loss of approximately 1/4 inch. Evaluation of the left distal forearm, lumbar spine, and hips wasperformed and felt to be technically adequate with comparison made tomultiple prior studies, most recently 01/21/2018. Total bone mineral density in the distal forearm was calculated at 0.450g/CM square with a T-score of -2.2 and Z-score of -0.3, falling within theWHO classification of osteopenia and representing a 4% decline [id number] Total bone mineral density in the L2-L4 vertebral bodies was calculated at0.897 gm/cm2 with a T-score of -1.7 and Z-score of 0.4, falling within theWHO classification of osteopenia, without significant interval change [id number]. Total bone mineral density in the right hip was calculated at 0.669 gm/lr8zhmy a T-score of -2.2 and Z-score of -0.8 falling within the WHOclassification of osteopenia, representing an interval decline of 7.4%since 2018. Total bone mineral density in the left hip was calculated at0.685 gm/cm2 with a T-score of -2.1 and Z-score of -0.7 falling withinthe WHO classification of osteopenia, representing an interval decline of3.9% since 2018. IMPRESSION: Osteopenia with interval decrease in left distal forearm and bilateral hipbone mineral density since 2018. POS - [id number] Joshua Gongora MD IMG BD BONE DENSITY DEX A Final Result from Last 3 Months or Most Recently Relevant to Health Maintenance Insurance MEDICARE PART A & B [facility] MEDICARE SUPPLEMENT MEDICARE PART A & B [employer] MED[employer]ARE SUPPLEMENT MED[facility]ARE PART A & [facility] EXTENSION MEDICARE SUPPLEMENT MEDICARE PART A & B [employer] MEDICARE SUPPLEMENT MEDICARE PART A & B [facility] EXTENSION MEDICARE SUPPLEMENT MEDICARE PART A & B [facility] EX[employer]ION MEDICARE SUPPLEMENT MEDICARE PART A & B [id number] [place] [address] [employer] MEDICARE SUPPLEMENT MEDICARE PART A & B [facility] EX[employer]ENSION MEDICARE SUPPLEMENT MEDICARE PART A & B [facility] EX[employer]ION MEDICARE SUPPLEMENT Care Teams Diesel Stationary Engineer Relationship Specialty Start Date End Date Joshua Gongora MD [address] [place] [address] [place] [address] PCP - General 04/09/17 Additional Source Comments The information contained in this document represents components of the legal health record. It is not the complete legal health record.[facility]
--- OUTSIDE RECORDS SUMMARY | 2024-11-22 14:30 | XMS_ITS | Encounter Summary ---
Author Organization [facility] Address [address] [place] [address] Care Team Providers Care Manager Erp Name Role Phone Unavailable Primary Care Provider Unavailabl e Encounter Details Date Type Department Care Team (Late st Contact Info) Description 02/23/[address] [facility] Lab [address] [facility] [place] [address] Teofilo Fletcher MD [address] [facility] [address] [place] [id number] Benign essential microscopic hematuria Social History Tobacco [...] and pathological findings. 03/15/2024 8:59 AM EST [facility] ([facility] Addendum electronically signed by Mark Young MD on 03/15/2024 at 8:59 AM Final Diagnosis Urine, Voided: Negative for high grade urothelial carcinoma. Acute inflammatory cells present. Note: UroVysion testing to follow. 03/15/2024 8:59 AM EST [facility] Gross Description A. Urine, Voided, : [id number] Recd 1 TP CYTO 1 TP FISH 03/15/2024 8:59 AM EST [facility] Disclaimer Unless otherwise specified, all tissue is 10% NB formalin fixed and paraffin embedded. 03/15/2024 8:59 AM [facility] Tissue Urine specimen from urethra / Unknown 02/15/2024 02/23/2024 1:55 PM EST us Teofilo Fletcher MD LAB PATHOLOGY ORDERABLES Edited Result - Final [facility]) [facility] [address] [place] [address], documented in this encounter Visit Diagnoses Diagnosis Benign essential microscopic hematuria documented in this encounter
== END 2024-11-22 13:20 | disposition home or self-care (01) ==
LOC: HO.HMGAL 13:17
PROVIDERS: PCP Internal Medicine; Visit Provider Registered Nurse Emergency
DX: J30.89 Other allergic rhinitis (principal)
CPT/HCPCS: 95117; 95165

== ENCOUNTER 2024-12-07 11:45 | Outpatient (AMB) | payer MEDICARE, OTHER, SELFPAY ==
--- OUTSIDE RECORDS SUMMARY | 2024-05-11 09:00 | XMS_ITS ---
Author Organization [facility] Address [address] [place] [phone] Care Team Providers Care Hydraulic Rubbish Compactor Mechanic Name Role Phone Rolan TEJADA, Joshua Primary Care Provider Julieta Zhou Jr, Jake Phipps [phone] REASON FOR VISIT change in bwl habits, heme positive stools Encounters Encounter Location Date Provider Diagnosis [facility] [place] [address] [place] [phone] 05/11/2024 Jake Zhou Jr Colon polyps K63.5 and Change in bowel habits R19.4 Assessments Encounter Date Diagnosis (ICD Code) Assessment Notes Treatment Notes Treatment Clinical Notes Section Notes 05/11/2024 Colon polyps (ICD-10 - K63.5) 05/11/2024 Change in bowel habits (ICD-10 - R19.4) Plan Of Treatment No Information Progress Notes * JOHNNY FREEMAN MDOB:1950 (74 yo F)Acc No.[id number]:05/11/2024 COLON WITH MAC Patient: Kindra KOHLERJOHNNY Carias Provider: Ori Zhou MD :1950 A ge:73 Y S ex:Female Date:05/11/2024 Address:[address] [place] [address] Pcp:Joshua Gongora MD Subjective: * Chief Complaints: * 1 . Change in bwl habits, heme positive stools. * Medical History: Objective: * Vitals: Assessment: * Assessment: 1. C olon polyps - K63.5 (Primary) 2 . C hange in bowel habits - R19.4 Plan: * Treatment: * Procedure Codes: 4 5385 LESION REMOVAL COLONOSCOPY, 52684 COLONOSCOPY AND BIOPSY, Modifiers: 59 , 0529F INTRVL 3+YRS PTS CLNSCP DOCD * * The named appointment provid er may or may not be the originator of this progress note, and it is not deemed complete until electronically signed by the appointment provider. Sign off status: Pending * Provider: Ori Zhou MD Date: 0 05/11/2024 Generated for Alfonzo christianson/Poncho/Chingitting on: 0 12/07/2024 02:09 PM EDT
--- OUTSIDE RECORDS SUMMARY | 2024-07-11 03:30 | XMS_ITS ---
Author Organization Joshua Gongora MD Address [address] [place] [phone] Care Team Providers Care Special Events Coordinator Name Role Phone Joshua Gongora Primary Care Provider [phone] Results Component Value Reference Range Notes TSH reflex Free T4 Reviewed date:07/11/2024 12:41:15 PM Interpretation: Performing Lab:[facility], [address] [place] [phone] Notes/Report: TSH reflex Free T4 1.40 0.32-4.0 uIU/mL REASON FOR VISIT TSH REFLEX FREE T 4 Encounters Encounter Location Date Provider Diagnosis Joshua Gongora MD [address] [place] [phone] 07/11/2024 Joshuakaushal Gongora 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 History of hematuria Z87.448 Assessments Encounter Date Diagnosis (ICD Code) Assessment Notes Treatment Notes Treatment Clinical Notes Section Notes 07/11/2024 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) 07/11/2024 History of hematuria (ICD-10 - Z87.448) Plan Of Treatment Next Appt Details Provider Name:Joshua Sainz ier, 02/10/2025 07:00:00 AM, [address] [place] [address], Suite [facility], [place], [place], [phone], Provider Name:Joshua Sainz ier, 02/17/2025 08:30:00 AM, [address] [place] [address], [place] [address], [place], [place], [phone], Progress Notes * Kathy FREEMAN MDOB:1950 (74 yo F)Acc No.[id number]:07/11/2024 Progress Note Patient: Kathy BALS Provider: Yashira Gongora MD :1950 A ge:73 Y S ex:Female Date:07/11/2024 Address:[address] [place] [address] Subjective: * Chief Complaints: * 1 . [...] MD Date: 0 07/11/2024 Generated for Alfonzo christianson/Poncho/eTforestsmitting on: 0 12/07/2024 02:08 PM EDT
--- OUTSIDE RECORDS SUMMARY | 2024-08-26 06:15 | XMS_ITS ---
Author Organization Joshua Gongora MD Address [address] [place] [phone] Care Team Providers Care Conveyor Technician Name Role Phone Joshua Gongora Primary Care Provider Allergies Allergen (clinical drug ingredient) Drug/Non Drug Allergy documented on EMR Reaction Allergy Type Onset Date Status Information temporarily unavailable hair dye (uncoded) Unknown Allergy Active Information temporarily unavailable fragrance in mycolog (uncoded) blister Allergy Active Reason For Referral Reason Ovarian cyst eval and treat for a second opinion Diagnosis 1 Ovarian cyst (N83.20 9) Referral Organization Joshua Gongora MD Referring Provider First Name Joshua Referring Provider Last Name Rolan Referring Provider Speciality Internal M edicine Referred Provider [facility] FIELD SERVICE POULTRY TECHNICIAN [employer], [facility] FIELD SERVICE POULTRY TECHNICIAN [employer] Referred Provider Specialty OB - Gynecol ogy General Notes Eleonora Agosto 0 08/26/2024 10:49:58 AM >send US info faxed phone [phone], Eleonora Agosto 09/09/2024 02:14:26 PM > was told to call back in 2 weeks after 09-19, Eleonora Agosto 09/29/2024 03:23:08 PM > info was refaxed on 09-26-24 was told to refax to [phone] they have a wait list until the [...] 1 application Externally QOD Active Clobetasol Prop Oint-[place] Tar 0.05 & 2.3 % as directed [...] Date Provider Diagnosis Joshua Gongora MD [address] [facility] [address] [place], [place] [phone] 08/26/2024 Joshua Gongora Ovarian cyst N83.209 and [...] second opinion Irritable bowel syndrome with diarrhea martínez dawson has not started meds yet. have explained the way to use them. if she has symptoms to take for a few days and then stop to see how she is doing Other is going Referrals Referral Date Details 08/26/2024 08/26/2024, Ovarian cyst eval and treat for a second opinion, [facility] FIELD SERVICE POULTRY TECHNICIAN Group [facility] FIELD SERVICE POULTRY TECHNICIAN Group [facility] Next Appt Details Provider Name:Joshua small, 02/10/2025 07:00:00 AM, [address] [place] [address], [address], [place], [place], [phone], Provider Name:Joshua small, 02/17/2025 08:30:00 AM, [address] [place] [address], [address], [place], [place], [phone], Progress Notes * Kathy FREEMAN MDOB:1950 (73 yo F)Acc No.[id number]:08/26/2024 Progress Notes Patient: Kathy BLAS Teresa Provider: Yashira Gongora MD :1950 A ge:73 Y S ex:Female Date:08/26/2024 Address:[facility] [id number] Subjective: * Chief Complaints: * 1 month * HPI: S ymptom(s): patient is a 73 yo female her for one month follow up visit finally got the ibs meds. never tried. * ROS: G eneral/Constitutional: Denies Sugey oviedo. D enies F atigue. D enies F [...] stic Procedure: * Medications: T akingClobetasol Prop Oint-[place] Tar 0.05 & 2.3 % Kit as [...] Externally Twice a day Taking Clobetasol Prop Oint-[place] Tar 0.05 & 2.3 % Kit as [...] MD Date: 0 08/26/2024 Generated for Alfonzo christianson/Poncho/Yen on: 0 12/07/2024 02:09 PM EDT History and Physical Notes * [...] Referred Provider Not es 08/26/2024 Joshua Gongora [facility] FIELD SERVICE POULTRY TECHNICIAN [employer], [facility] FIELD SERVICE POULTRY TECHNICIAN Group [facility] Ovarian cyst eval and treat for a second opinion
--- OUTSIDE RECORDS SUMMARY | 2024-12-07 14:09 | XMS_ITS | Clinical Summary ---
Author Organization [facility] Address [address] [place] [id number] Phone Care Team Providers Care Laborer Cheesemaking Name Role Phone Joshua Gongora MD Primary [...] her the option for second opinion with station engineer chief oncologist; with knowledge that these referrals generally [...] Description 11/21/2024 10:00 AM EDT Office Visit [facility] [address] [place] [address] Susan Merchant MD Right ovarian cyst (Primary Dx) 11/16/2024 9:19 AM EDT - 11/16/2024 11:59 PM EDT Hospital Encounter [facility] [address] [place] [address] Susan Merchant MD Discharge Disposition: Home or Self Care 11/16/2024 Telephone [facility] [address] [place] [address] Susan Merchant MD from Last 3 Months Immunizations Immunization Administration [...] 10/09/2024 10/09/2022, 06/04, 07/12/2018, Additional history exists INFLUENZA VACCINE (#1) 2024 , 01/26/2023, 01/06/2022, Additional history exists Adult Td,Tdap Booster 04/20/2027 [...] of osteopenia and representing a 4% decline [id number] Total bone mineral density in the L2-L4 vertebral bodies was calculated at0.897 gm/cm2 with a T-score of -1.7 and Z-score of 0.4, falling within theWHO classification of osteopenia, without significant interval change [id number]. Total bone mineral density in the right hip was calculated at 0.669 gm/pv4bvvw a T-score of -2.2 and Z-score of [...] Maintenance Insurance MEDICARE PART A & B [facility] MEDICARE SUPPLEMENT MEDICARE PART A & B [employer] MEDICARE SUPPLEMENT MEDICARE PART A & B Member Subscriber Plan / Payer ( fective 2016-Present) Name:Kathy Su Member ID:[id number] Relation to Subscriber:Self Name:Kathy Su Subscriber ID:[id number] Payer ID:[id number] Group ID:Not on file Type:Medicare Address: [employer] [address] [place] [id number] [place] [address] EXT[employer]ION MEDICARE SUPPLEMENT MEDICARE PART A & B [employer] MEDICARE SUPPLEMENT MEDICARE PART A & B [facility] EXTENSION MEDICARE SUPPLEMENT MEDICARE PART A & B [facility] EXTENSION MEDICARE SUPPLEMENT MEDICARE PART A & B [employer] MEDICARE SUPPLEMENT MEDICARE PART A & [place] [phone] MEDICARE PART A & B [facility] EX[employer]ENSION MEDICARE SUPPLEMENT Care Teams Laborer Cheesemaking Relationship Specialty Start Date End Date Joshua Gongora MD [address] [place] [address] [place] [address] PCP - General 04/09/17 Additional Source Comments The information contained in this document represents components of the legal health record. It is not the complete legal health record.[facility]
--- OUTSIDE RECORDS SUMMARY | 2024-12-07 14:09 | XMS_ITS | Encounter Summary ---
Author Organization [facility] Address [address] [place] [address] Phone Care Team Providers Care Protein Chemist Name Role Phone Joshua Gongora MD Primary Care Provider Encounter Details Date Type Department Care Team (Late st Contact Info) Description 10/12/2017 Ancillary Orders Virtual Department [address] [place] [address] Joshua Gongora MD [address] [place] [address] [place] [address] Osteopenia, unspecified location Social History Tobacco Use Types Packs/Day Years Used Date Smoking Tobacco: Every Day Smokeless Tobacco: Current Alcohol Use Standard Drinks/Week Comments Yes 0 (1 standard drink = 0.6 oz pur e alcohol) Comments Unknown Sex and Gender Information Value Date Recorded Sex Assigned at Not on file Legal Sex Female 7:21 PM EST Gender Identity Not on file Sexual Orientation Not on file documented as of this encounter Plan of Treatment Not on file documented as of this encounter Results * BD DXA SPINE AND HIP WITH FOREARM (01/21/2018 2:29 PM EDT) Anatomical Region Laterality Modality Bone Density Bone Density 01/22/2018 1:56 PM EDT Impressions 01/22/2018 2:00 PM EDT Osteopenia at all sites assessed with statistically significant loss of bone mineral density in the spine, left hip, and forearm since 2009. POS - [id number] Narrative 01/22/2018 2:00 PM EDT COMPARISON: 02/20/2010 09/24/2007 FINDINGS: This is a 67-year-old postmenopausal white female with a history of osteopenia. Evaluation of the lumbar spine, hips, and nondominant left forearm was performed and felt to be technically adequate. Total bone mineral density in the L1-L4 vertebral bodies was calculated at 0.886 gm/cm2 with a T-score of -1.8 falling within the WHO classification of osteopenia. Z-score of 0.2. 5.7% loss of bone mineral density since the baseline exam and 4.6% loss since the previous exam, both of which are statistically significant at the 95% confidence level. Total bone mineral density in the right hip was calculated at 0.723 gm/cm2 with a T-score of -1.8 falling within the WHO classification of osteopenia. Z-score of -0.5. 0.2% loss of bone mineral density since the baseline exam and 0.3% loss since the previous exam, both of which are not statistically significant. Total bone mineral density in the left hip was calculated at 0.713 gm/cm2 with a T-score of -1.9 falling within the WHO classification of osteopenia. Z-score of -0.6. 6.0% loss of bone mineral density since the baseline exam and 4.8% loss since the previous exam, both of which are statistically significant at the 95% confidence level. Total bone mineral density in the left forearm was calculated at 0.469 gm/cm2 with a T-score of -1.9 falling within the WHO classification of osteopenia. Z-score of -0.1. 11.3% loss of bone mineral density since the baseline exam and 9.5% loss since the previous exam, both of which are statistically significant at the 95% confidence level. Procedure Note Allan Bond MD - 01/22/2018 COMPARISON: 02/20/2010 09/24/2007 FINDINGS: This is a 67-year-old postmenopausal white female with ahistory of osteopenia. Evaluation of the lumbar spine, hips, and nondominant left forearm wasperformed and felt to be technically adequate. Total bone mineral density in the L1-L4 vertebral bodies was calculated at0.886 gm/cm2 with a T-score of -1.8 falling within the WHO classificationof osteopenia. Z-score of 0.2. 5.7% loss of bone mineral density sincethe baseline exam and 4.6% loss since the previous exam, both of which arestatistically significant at the 95% confidence level. Total bone mineral density in the right hip was calculated at 0.723 gm/ox6uabd a T-score of -1.8 falling within the WHO classification ofosteopenia. Z-score of - 0.5. 0.2% loss of bone mineral density since thebaseline exam and 0.3% loss since the previous exam, both of which are notstatistically significant. Total bone mineral density in the left hip was calculated at 0.713 gm/tl3qqjo a T-score of -1.9 falling within the WHO classification ofosteopenia. Z-score of - 0.6. 6.0% loss of bone mineral density sincethe baseline exam and 4.8% loss since the previous exam, both of which arestatistically significant at the 95% confidence level. Total bone mineral density in the left forearm was calculated at 0.469gm/cm2 with a T-score of -1.9 falling within the WHO classification ofosteopenia. Z-score of - 0.1. 11.3% loss of bone mineral density sincethe baseline exam and 9.5% loss since the previous exam, both of which arestatistically significant at the 95% confidence level. IMPRESSION: Osteopenia at all sites assessed with statistically significant loss ofbone mineral density in the spine, left hip, and forearm since 2009. POS - [id number] us Joshua Gongora MD IMG BD BONE DENSITY DEX A Final Result documented in this encounter Visit Diagnoses Diagnosis Osteopenia, unspecified location Osteopenia, unspecified location documented in this encounter Care Teams Protein Chemist Relationship Specialty Start Date End Date Joshua Gongora MD [address] [place] [address] [place] [address] PCP - General 04/09/17 documented as of this encounter Additional Source Comments The information contained in this document represents components of the legal health record. It is not the complete legal health record.[facility]
--- OUTSIDE RECORDS SUMMARY | 2024-12-07 14:09 | XMS_ITS | Encounter Summary ---
Author Organization [facility] Address [address] [place] [address] Care Team Providers Care Solvent Station Attendant Name Role Phone Unavailable Primary Care Provider Unavailabl e Encounter Details Date Type Department Care Team (Late st Contact Info) Description 02/23/2024 Lab Requisition [facility] - Main Lab [address] [facility] [place] [address] Teofilo Fletcher MD [address] [facility] [address] [place] [id number] Benign essential microscopic hematuria Social History Tobacco [...] pathological findings. 03/15/2024 8:[address] [facility] Addendum electronically signed by Mark Young MD on 03/15/2024 at 8:59 AM Final Diagnosis Urine, Voided: Negative for high grade urothelial carcinoma. Acute inflammatory cells present. Note: UroVysion testing to follow. 03/15/2024 8:59 AM EST [facility] Gross Description A. Urine, Voided, : [id number] Recd 1 TP CYTO 1 TP FISH 03/15/2024 8:59 AM EST [facility] Disclaimer Unless otherwise specified, all tissue is 10% NB formalin fixed and paraffin embedded. 03/15/2024 8:59 AM [facility] Tissue Urine specimen from urethra / Unknown 02/15/2024 02/23/2024 1:55 PM EST us Teofilo Fletcher MD LAB PATHOLOGY ORDERABLES Edited Result - Final [facility]) [facility] [address] [place] [address], documented in this encounter Visit Diagnoses Diagnosis Benign essential microscopic hematuria documented in this encounter
--- OUTSIDE RECORDS SUMMARY | 2024-12-07 14:09 | XMS_ITS | Encounter Summary ---
Author Organization [facility] Address [address] [place] [address] Phone Care Team Providers Care Civil Draftsman Name Role Phone Joshua Gongora MD Primary Care Provider Encounter Details Date Type Department Care Team (Late st Contact Info) Description 06/09/2019 Ancillary Orders Virtual Department [address] [place] [address] Joshua Gongora MD [address] [place] [address] [place] [address] Osteopenia, unspecified location; Osteopenia of left hip; Osteopenia of lumbar spine Social History Tobacco Use Types Packs/Day Years Used Date Smoking Tobacco: Every Day Smokeless Tobacco: Current Alcohol Use Standard Drinks/Week Comments Yes 0 (1 standard drink = 0.6 oz pur e alcohol) Comments No Sex and Gender Information Value [...] of osteopenia and representing a 4% decline [id number] Total bone mineral density in the L2-L4 vertebral bodies was calculated at0.897 gm/cm2 with a T-score of -1.7 and Z-score of 0.4, falling within theWHO classification of osteopenia, without significant interval change [id number]. Total bone mineral density in the right hip was calculated at 0.669 gm/hr5jrgn a T-score of -2.2 and Z-score of [...] location documented in this encounter Care Teams Civil Draftsman Relationship Specialty Start Date End Date Joshua Gongora MD [address] [place] [address] [place] [address] PCP - General 04/09/17 documented as of this encounter Additional Source Comments The information contained in this document represents components of the legal health record. It is not the complete legal health record.[facility]
--- OUTSIDE RECORDS SUMMARY | 2024-12-07 14:09 | XMS_ITS | Encounter Summary ---
Author Organization [facility] Address [address] [place] [address] Phone Care Team Providers Care Residence Leasing Agent Name Role Phone Joshua Gongora MD Primary Care Provider Encounter Details Date Type Department Care Team (Late st Contact Info) Description 06/08/2019 Ancillary Orders Virtual Department [address] [place] [address] Joshua Gongora MD [address] [place] [address] [place] [address] Osteopenia, unspecified location Social History Tobacco Use [...] on file documented as of this encounter Visit Diagnoses Diagnosis Osteopenia, unspecified location documented in this encounter Care Teams Residence Leasing Agent Relationship Specialty Start Date End Date Joshua Gongora MD [address] [place] [address] [place] [address] PCP - General 04/09/17 documented as of this encounter Additional Source Comments The information contained in this document represents components of the legal health record. It is not the complete legal health record.[facility]
--- OUTSIDE RECORDS SUMMARY | 2024-12-07 14:10 | XMS_ITS | Clinical Summary ---
Author Organization [address] Address [address] [place] [address] Phone Care Team Providers Care Cp Bleacher Operator Name Role Phone Unavailable Primary Care Provider [...] 2) 10/21/2001 Colorectal Cancer Screening: Colonoscopy 03/09/2022 Falls Risk Assessment 03/09/2022 Hepatitis C Screening 03/09/2022 Medicare Annual Wellness Visit 03/09/2022 Osteoporosis Screening (Bone Density Screening) 03/09/2022 Social Influencers of Health Screening 03/09/2022 Depression Screening 04/06/2024 COVID-19 Vaccine ( season) 2024 Influenza Vaccine (#1) 2024 Breast Cancer Screening 10/25/2025 10/26/19 24, 10/09/2022, [...] age to complete this topic Meningococcal B Vaccine Aged Out No l onger eligible based on patient's age to complete this topic RSV Immunization Patients Under 20 months Aged Out No longer eligible based on patient's age to complete this topic Varicella Vaccines Aged Out No longer eligible based on patient's age to complete this topic Procedures Procedure Name Priority Date/Time Associated Diagnosis Comments [facility] SCREENING DIGITAL Routine 10/26/2023 12:54 PM EDT Encounter for screening mammogram for malignant neoplasm of breast from Last 3 Months or Most Recently Relevant to Health Maintenance Results * [facility] SCREENING DIGITAL (10/26/2023 12:54 PM EDT) Anatomical Region Laterality Modality Mammography 10/26/2023 10:0 2 AM EDT Narrative 10/26/2023 12:54 PM EDT [facility] Diagnostic Imaging Department [address] [place] [address] Patient: JOHNNY FREEMAN D.O.B./Age/Sex: 1950 - 73 - F Unit#: [id number] Location/Status: SPDIMAM/REG CLI Mnemonic/Ordering Site: [facility] Ordering Physician: JOSHUA VASQUEZ MD [facility] Screening Digital - 10/26/23 - 1025 Report Status:Signed EXAM: [facility] Screening Digital EXAM DATE AND TIME: 10/26/2023 10:26 AM HISTORY: Annual screening COMPARISON: 10/09/2022, 09/30/2021, 09/28/2020, 09/27/2019 and 07/12/2018 TECHNIQUE: Bilateral digital breast tomosynthesis was performed in the CC and MLO projections. Computer aided detection with Kno 7.2-H and Kudarom 3D 3.1 was employed. TISSUE DENSITY: c. The breasts are heterogeneously dense, which may obscure small masses. FINDINGS: Stable biopsy marker in the right breast. No suspicious masses, grouped microcalcifications, or areas of architectural distortion are seen. The skin and vascularity are unremarkable. IMPRESSION: Stable mammographic appearance of the breasts. No evidence of malignancy is seen. A negative mammogram in the presence of a clinically suspicious palpable abnormality does not preclude the possibility of malignancy or alter the indications for biopsy. BI-RADS: Category 2: Benign RECOMMENDATION(S): 1: Routine screening mammogram BILATERAL in 1 year. Dictating Physician: FLAKO SHAW MD Electronically Signed by: FLAKO SHAW MD Dic Date/Time: 10/26/23 1246 Sign date/Time: 10/26/23 1254 Procedure Note Flako Shaw MD - 01/20/2024 [facility] Diagnostic Imaging Department [address] [place] [address] Patient: PETEJOHNNY D.O.B./Age/Sex: 1950 - 73 - F Unit#: [id number] Location/Status: SPDIMAM/REG CLI Mnemonic/Ordering Site: [facility] Ordering Physician: JOSHUA VASQUEZ MD [facility] Scre[facility] Digital - 10/26/23 - 1025 Report Status:Signed EXAM: [facility] Screening Digital EXAM DATE AND TIME: 10/26/2023 10:26 AM HISTORY: Annual screening COMPARISON: 10/09/2022, 09/30/2021, 09/28/2020, 09/27/2019 and 07/12/2018 TECHNIQUE: Bilateral digital breast tomosynthesis was performed in the CCand MLO projections. Computer aided detection with Kno 7.2-H andKudarom 3D 3.1 was employed. TISSUE DENSITY: c. [...]
== END 2024-12-07 12:43 | disposition home or self-care (01) ==
LOC: HO.HMGAL 11:45
PROVIDERS: PCP Internal Medicine; Visit Provider Registered Nurse Emergency
DX: J30.89 Other allergic rhinitis (principal)
CPT/HCPCS: 95117; 95165

== ENCOUNTER 2024-12-21 11:03 | Outpatient (AMB) | payer MEDICARE, OTHER, SELFPAY ==
--- OUTSIDE RECORDS SUMMARY | 2024-04-11 05:00 | XMS_ITS ---
Author Organization Joshua Gongora MD Address [address] [place] [phone] Care Team Providers Care Dock Associate Name Role Phone Joshua Gongora Primary Care [...] Externally Twice a day Unknown Clobetasol Prop Oint-O'Brien Tar 0.05 & 2.3 % as directed [...] Problem Status W/U Status Risk Notes Problem [id number] Irritable bowel syndrome with diarrhea (K58.0) Active confirmed Vital Signs Blood pressure systolic 134 mm Hg 04/11/19 25 Blood pressure diastolic 76 mm Hg 025 Height 62.00 in 04/11/2024 Weight 119 lbs 04/11/2024 BMI 21.76 kg/m2 04/11/2024 weight is up 4 pounds since 02-11-24 Encounters Encounter Location Date Provider Diagnosis Joshua Gongora MD [address] [place] [address] [address] [place], [place] [phone] 04/11/2024 Joshua Gongora History of hematuria Z87.448 [...] results of the cat scan to her food service cashier 04/11/2024 Irritable bowel syndrome with diarrhea (ICD-10 [...] results of the cat scan to her food service cashier Irritable bowel syndrome with diarrhea g oing to see dr upton next week Next Appt Details Follow Up: 3 Months, Reason: Provider Name:Joshua Elliottreta ier, 02/10/2025 07:00:00 AM, [address] [place] [address], [address], [place], [place], [phone], Provider Name:Joshua Sainz ier, 02/17/2025 08:30:00 AM, [address] [facility], [address], [place], [place], [phone], Progress Notes * Kathy FREEMAN MDOB:1950 (73 yo F)Acc No.[id number]:04/11/2024 Patient: Kathy Anglin Provider: Yashira Gongora MD :1950 A ge:73 Y S ex:Female Date:04/11/2024 Address:[address] [place] [phone] Subjective: * Chief Complaints: * 2 month/ [...] stic Procedure: * Medications: T akingClobetasol Prop Oint-O'Brien Tar 0.05 & 2.3 % Kit as [...] tablet Orally every other dayTaking Clobetasol Prop Oint-O'Brien Tar 0.05 & 2.3 % Kit as [...] results of the cat scan to her food service cashier 3. I rritable bowel syndrome with diarrhea Notes: going to see dr upton next week * Procedure Codes: * Follow Up: 3 Months * * Sign off status: Completed true * Provider: Yashira Gongora MD Date: 0 04/11/2024 Generated for Carinai sammy/Poncho/Salbadorransmitting on: 0 12/21/2024 02:11 PM EDT History and Physical Notes * HPI (History [...]
--- OUTSIDE RECORDS SUMMARY | 2024-05-11 09:00 | XMS_ITS ---
Author Organization [facility] Address [address] [place] [phone] Care Team Providers Care Lab Systems Analyst Name Role Phone Rolan TEJADA, Joshua Primary Care Provider Julieta Zhou Jr, Jake Phipps REASON FOR VISIT change in bwl habits, heme positive stools Encounters Encounter Location Date Provider Diagnosis [facility] [place] Out[place] [address] [place] [phone] 05/11/2024 Jake Zhou Jr Colon polyps K63.5 and Change in bowel habits R19.4 Assessments Encounter Date Diagnosis (ICD Code) Assessment Notes Treatment Notes Treatment Clinical Notes Section Notes 05/11/2024 Colon polyps (ICD-10 - K63.5) 05/11/2024 Change in bowel habits (ICD-10 - R19.4) Plan Of Treatment No Information Progress Notes * JOHNNY FREEMAN MDOB:1950 (74 yo F)Acc No.[id number]:05/11/2024 COLON WITH MAC Patient: Kindra KOHLERJOHNNY Carias Provider: Ori Zhou MD :1950 A ge:73 Y S ex:Female Date:05/11/2024 Address:[address] [place] [address] Pcp:Joshua Gongora MD Subjective: * Chief Complaints: * 1 . Change in bwl habits, heme positive stools. * Medical History: Objective: * Vitals: Assessment: * Assessment: 1. C olon polyps - K63.5 (Primary) 2 . C hange in bowel habits - R19.4 Plan: * Treatment: * Procedure Codes: 4 5385 LESION REMOVAL COLONOSCOPY, [address] COLONOSCOPY AND BIOPSY, Modifiers: 59 , 0529F INTRVL 3+YRS PTS CLNSCP DOCD * * The named appointment provid er may or may not be the originator of this progress note, and it is not deemed complete until electronically signed by the appointment provider. Sign off status: Pending * Provider: Ori Zhou MD Date: 0 05/11/2024 Generated for Alfonzo christianson/Poncho/Chingitting on: 0 12/21/2024 02:11 PM EDT
--- OUTSIDE RECORDS SUMMARY | 2024-07-11 03:30 | XMS_ITS ---
Author Organization Joshua Gongora MD Address [address] [place] [phone] Care Team Providers Care Electric Razor Mechanic Name Role Phone Joshua Gongora Primary Care Provider Results Component Value Reference Range Notes TSH reflex Free T4 Reviewed date:07/11/2024 12:41:15 PM Interpretation: Performing Lab:[facility], [address] [place] [phone] Notes/Report: TSH reflex Free T4 1.40 0.32-4.0 uIU/mL REASON FOR VISIT TSH REFLEX FREE T 4 Encounters Encounter Location Date Provider Diagnosis Joshua Gongora MD [address] [place] [phone] 07/11/2024 Joshuakaushal Gongora 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 History of hematuria Z87.448 Assessments Encounter Date Diagnosis (ICD Code) Assessment Notes Treatment Notes Treatment Clinical Notes Section Notes 07/11/2024 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) 07/11/2024 History of hematuria (ICD-10 - Z87.448) Plan Of Treatment Next Appt Details Provider Name:Joshua Sainz ier, 02/10/2025 07:00:00 AM, [address] [place] [address], Suite [facility], [place], [place], [phone], Provider Name:Joshua Sainz ier, 02/17/2025 08:30:00 AM, [address] [place] [address], [place] [address], [place], [place], [phone], Progress Notes * Kathy FREEMAN MDOB:1950 (74 yo F)Acc No.[id number]:07/11/2024 Progress Note Patient: Kathy BLAS Provider: Yashira Gongora MD :1950 A ge:73 Y S ex:Female Date:07/11/2024 Address:[address] [place] [address] Subjective: * Chief Complaints: * 1 . [...] 07/11/2024 Generated for Alfonzo christianson/Poncho/eTforestsmitting on: 0 12/21/2024 02:11 PM EDT
--- OUTSIDE RECORDS SUMMARY | 2024-07-28 09:30 | XMS_ITS ---
Author Organization Joshua Gongora MD Address [address] [place] [phone] Care Team Providers Care Teachers Aide Name Role Phone Joshua Gongora Primary Care Provider [phone] Allergies Allergen (clinical drug ingredient) Drug/Non Drug [...] Externally Twice a day Active Clobetasol Prop Oint-[place] Tar 0.05 & 2.3 % as directed Externally A ctive Problems Problem Type SNOMED Code ICD Code Onset Dates Problem Status W/U Status Risk Notes Problem Irritable bowel (36271338) Irritable bowel (K58.9) Active confirmed Vital Signs Blood pressure systolic 122 mm Hg 07/29/19 25 Blood pressure diastolic 80 mm Hg 025 Height 62.00 in 07/28/2024 Weight 116 lbs 07/28/2024 BMI 21.21 kg/m2 07/28/2024 weight is down 3 pounds [facility] 04-11-24 Encounters Encounter Location Date Provider Diagnosis Joshua Gongora MD [address] [place], [place] [phone] 07/28/2024 Joshua Gongora Ovarian cyst N83.209 and Irritable bowel K58.9 Assessments Encounter Date Diagnosis (ICD Code) Assessment Notes Treatment Notes Treatment Clinical Notes Section Notes 07/28/2024 Ovarian cyst (ICD-10 - N83.209) followed by Roller Turner 07/28/2024 Irritable bowel (ICD-10 - K58.9) patient verbalized understanding of medication and directions for use Plan Of Treatment Medication Medication Name Sig Start Date Stop Date Notes Hyoscyamine Sulfate ER 0.375 MG 1 tablet Orally once per day for 30 days 07/28/2024 Treatment Notes Assessment Notes Ovarian cyst followed by Roller Turner Irritable bowel patient verbalized u nderstanding of medication and directions for use Next Appt Details Follow Up: 4 Weeks, Reason: Provider Name:Joshua small, 02/10/2025 07:00:00 AM, [address], [address], [place], [place], [phone], Provider Name:Joshua small, 02/17/2025 08:30:00 AM, [address], [address], [place], [place], [phone], Progress Notes * Kathy FREEMAN MDOB:1950 (73 yo F)Acc No.[id number]:07/28/2024 Progress Notes Patient: Kathy BLAS Provider: Yashira Gongora MD :1950 A ge:73 Y S ex:Female Date:07/28/2024 Address:[address] [place] [address], [place] Subjective: * Chief Complaints: * 3 MO F/U * HPI: S ymptom(s): patient is a 73 yo female here for 3 month follow up visit/ doing well/ had us of ovarys at digital content manager and found multiple cysts and had a [...] stic Procedure: * Medications: T akingClobetasol Prop Oint-[place] Tar 0.05 & 2.3 % Kit as [...] Externally Twice a day Taking Clobetasol Prop Oint-[place] Tar 0.05 & 2.3 % Kit as [...] 2. O varian cyst Notes: followed by Roller Turner * Procedure Codes: * Follow Up: 4 Weeks * * Sign off status: Completed true * Provider: Yashira Gongora MD Date: 0 07/28/2024 Generated for Printi ng/Fajorgeg/eTransmitting on: 0 12/21/2024 02:12 PM EDT History and Physical Notes * HPI (History of Present Illness) Category Sub-Category Detail Notes Category Not es Symptom(s) patient is a 73 yo female here for 3 month follow up visit/ doing well/ had us of ovarys at digital content manager and found multiple cysts and had a [...]
--- OUTSIDE RECORDS SUMMARY | 2024-08-05 09:27 | XMS_ITS ---
Author Organization Joshua Gongora MD Address [address] [place] [phone] Care Team Providers Care Retort Press Operator Name Role Phone Joshua Gongora Primary Care Provider Encounters Encounter Location Date Provider Diagnosis Joshua Gongora MD [address] [place] [phone] 08/05/2024 Joshua Gongora Plan Of Treatment Next Appt Details Provider Name:Joshua small, 02/10/2025 07:00:00 AM, [address], [address], [place], [place], [phone], Provider Name:Joshua small, 02/17/2025 08:30:00 AM, [address], [address], [place], [phone], Progress Notes * Kathy FREEMAN MDOB:1950 (73 yo F)Acc No.[id number]:08/05/2024 Patient: Kathy BLAS :1950 A ge:73 Y S ex:Female Address:[address] [place] [address], [place] [address] * true * Date: Generated for Alfonzo christianson/Poncho/Garlandsmitting on: 0 12/21/2024 02:11 PM EDT
--- OUTSIDE RECORDS SUMMARY | 2024-08-26 06:15 | XMS_ITS ---
Author Organization Joshua Gongora MD Address [address] [place] [phone] Care Team Providers Care Phlebotomy Tech Name Role Phone Joshua Gongora Primary Care [...] Provider Speciality Internal M edicine Referred Provider [facility] NATIONAL SALES [employer], [facility] [employer]ATIONAL [employer] Referred Provider Specialty OB - Gynecol ogy General Notes SurendraCelinaEleonora 0 08/26/2024 10:49:58 AM >send US info faxed phone [phone], Eleonora Agosto 09/09/2024 02:14:26 PM > was told to call back in 2 weeks after 09-19, Eleonora Agosto 09/29/2024 03:23:08 PM > info was refaxed on 09-26-24 was told to refax to [phone] they have a wait list until the [...] 1 application Externally QOD Active Clobetasol Prop Oint-[place] Tar 0.05 & 2.3 % as directed [...] Location Date Provider Diagnosis Joshua Gongora MD [address] [place] [address] [address] [place], [place] [phone] 08/26/2024 Joshua Gongora Ovarian cyst N83.209 and [...] eval and treat for a second opinion, [facility] NATIONAL SALES Group [facility] NATIONAL SALES Group [facility] Next Appt Details Provider Name:Joshua small, 02/10/2025 07:00:00 AM, [address] [place] [address], [address], [place], [place], [phone], Provider Name:Joshua Sainz ier, 02/17/2025 08:30:00 AM, [address] [place] [address], [address], [place], [place], [phone], Progress Notes * Kathy FREEMAN MDOB:1950 (73 yo F)Acc No.[id number]:08/26/2024 Progress Notes Patient: Kathy BLAS Teresa Provider: Yashira Gongora MD :1950 A ge:73 Y S ex:Female Date:08/26/2024 [place] [id number] Subjective: * Chief Complaints: * 1 month * HPI: S ymptom(s): patient is a 73 yo female her for one month follow up visit finally got the ibs meds. never tried. * ROS: G eneral/Constitutional: Boies Sugey oviedo. D enies F atigue. D [...] stic Procedure: * Medications: T akingClobetasol Prop Oint-[place] Tar 0.05 & 2.3 % Kit as [...] Externally Twice a day Taking Clobetasol Prop Oint-[place] Tar 0.05 & 2.3 % Kit as [...] MD Date: 0 08/26/2024 Generated for Alfonzo christianson/Poncho/Chingitting on: 0 12/21/2024 02:11 PM EDT History [...] Referred Provider Not es 08/26/2024 Joshua Gongora [facility] [employer]ATIONAL [employer], [facility] NATIONAL SALES Group [facility] Ovarian cyst eval and treat for a second opinion
--- OUTSIDE RECORDS SUMMARY | 2024-12-21 14:11 | XMS_ITS | Clinical Summary ---
Author Organization [facility] Address [address] [place] [address] Phone Care Team Providers Care Chief Building Inspector Name Role Phone Joshua Gongora MD Primary [...] her the option for second opinion with doctor of nurse anesthesia oncologist; with knowledge that these referrals generally [...] Visit [facility] [address] [place] [address] Susan Merchant MD Right ovarian cyst (Primary Dx) 11/16/2024 9:19 AM EDT - 11/16/2024 11:59 PM EDT Hospital Encounter [facility] [address] [place] [address] Susan Merchant MD Discharge Disposition: Home or Self Care 11/16/2024 Telephone [facility] [address] [place] [address] Susan Merchant MD from Last 3 Months [...] of osteopenia and representing a 4% decline [id number] Total bone mineral density in the L2-L4 vertebral bodies was calculated at0.897 gm/cm2 with a T-score of -1.7 and Z-score of 0.4, falling within theWHO classification of osteopenia, without significant interval change [id number]. Total bone mineral density in the right hip was calculated at 0.669 gm/li5ehha a T-score of -2.2 and Z-score of [...] Maintenance Insurance MEDICARE PART A & B [facility] MEDICARE SUPPLEMENT MEDICARE PART A & B [employer] MEDICARE SUPPLEMENT MEDICARE PART A & B Member Subscriber Plan / Payer ( fective 2016-Present) Name:Kathy Su Member ID:[id number] Relation to Subscriber:Self Name:Kathy Su Subscriber ID:[id number] Payer ID:[id number] Group ID:Not on file Type:Medicare Address: [employer] [address] [place] [address] [place] [address] [employer] MEDICARE SUPPLEMENT MEDICARE PART A & B [employer] MEDICARE SUPPLEMENT MEDICARE PART A & B [employer] MEDICARE SUPPLEMENT MEDICARE PART A & B [facility] EX[employer] MEDICARE SUPPLEMENT MEDICARE PART A & B [employer] MEDICARE SUPPLEMENT MEDICARE PART A & [place] [phone] MEDICARE PART A & B [facility] [employer] MEDICARE SUPPLEMENT Care Teams Chief Building Inspector Relationship Specialty Start Date End Date Joshua Gongora MD [address] [place] [address] [place] [address] PCP - General 04/09/17 Additional Source Comments The information contained in this document represents components of the legal health record. It is not the complete legal health record.[facility]
--- OUTSIDE RECORDS SUMMARY | 2024-12-21 14:11 | XMS_ITS | Patient Health Record ---
Author Organization [facility] Address [address] [place] [address] Care Team Providers Care Project Intern Name Role Phone Joshua Gongora MD Primary Care Provider Bereket Iraheta Unavailable [phone] Allergies Allergen (clinical drug ingredient) Drug/Non Drug Allergy documented on EMR Reaction Allergy Type Onset Date Status Mycolog creme, hair dye (uncoded) Unknown Allergy Active Adhesive Tape Unknown Drug Allergy Act alix Reason For Referral No Information Medications Medication SIG (Take, Route, Frequency, Duration) Notes Start Date End Date Status Clobetasol Prop Oint-[place] Tar Active Levothyroxine Sodium Active metroNIDAZOLE Not-Ta isaiah Social History Tobacco use other than smoking: Question Answer Notes Are you an other tobacco user? No Problems Problem Type SNOMED Code ICD Code Onset Dates Problem Status W/U Status Risk Notes Problem Acquired hallux valgus (54930400) Hallux valgus (acquired), left foot (M20.12) Active confirmed Problem Acquired hallux valgus (56116171) Hallux valgus (acquired), right foot (M20.11) Active confirmed Plan Of Treatment Pending Test Test Name Order Date X ray : Foot, left 2V 10/04/2014 X ray : Foot, right 2V 10/04/2014 Insurance Providers Payer Name Payer Address Payer Phone Subscriber Number Group Number Insured Name Patient Relationship to Insured Coverage Start Date Coverage End Date [employer] [address] [place] [id number] Kathy Su Self - patient is the insured Medical (General) History Medical History History ICD Code Back,Hip,and Knee pain Headaches Hiatal hernia Thyroid disorder Chicken pox Measles
--- OUTSIDE RECORDS SUMMARY | 2024-12-21 14:11 | XMS_ITS | Encounter Summary ---
Author Organization [facility] Address [address] [place] [address] Phone Care Team Providers Care Salesperson Automobiles Name Role Phone Joshua Gongora MD Primary Care Provider Encounter Details Date Type Department Care Team (Late st Contact Info) Description 06/09/2019 Ancillary Orders Virtual Department [address] [place] [address] Joshua Gongora MD [address] [place] [address] [place] [address] Osteopenia, unspecified location; Osteopenia of left hip; [...] of osteopenia and representing a 4% decline [id number] Total bone mineral density in the L2-L4 vertebral bodies was calculated at0.897 gm/cm2 with a T-score of -1.7 and Z-score of 0.4, falling within theWHO classification of osteopenia, without significant interval change [id number]. Total bone mineral density in the right hip was calculated at 0.669 gm/zf0eqle a T-score of -2.2 and Z-score of [...] location documented in this encounter Care Teams Salesperson Automobiles Relationship Specialty Start Date End Date Joshua Gongora MD [address] [place] [address] [place] [address] PCP - General 04/09/17 documented as of this encounter Additional Source Comments The information contained in this document represents components of the legal health record. It is not the complete legal health record.[facility]
--- OUTSIDE RECORDS SUMMARY | 2024-12-21 14:12 | XMS_ITS | Encounter Summary ---
Author Organization [facility] Address [address] [place] [address] Phone Care Team Providers Care Centerless Grinder Name Role Phone Joshua Gongora MD Primary Care Provider Encounter Details Date Type Department Care Team (Late st Contact Info) Description 06/08/2019 Ancillary Orders Virtual Department [address] [place] [address] Joshua Gongora MD [address] [place] [address] [place] [address] Osteopenia, unspecified location Social History Tobacco Use [...] location documented in this encounter Care Teams Centerless Grinder Relationship Specialty Start Date End Date Joshua Gongora MD [address] [place] [address] [place] [address] PCP - General 04/09/17 documented as of this encounter Additional Source Comments The information contained in this document represents components of the legal health record. It is not the complete legal health record.[facility]
--- OUTSIDE RECORDS SUMMARY | 2024-12-21 14:12 | XMS_ITS | Patient Health Record ---
Author Organization Joshua Gongora MD Address [address] [place], [place] [address] Care Team Providers Care Furniture Repairer Name Role Phone Joshua Gongora Primary Care Provider [phone] Allergies Allergen (clinical drug ingredient) Drug/Non Drug Allergy documented on EMR Reaction Allergy Type Onset Date Status Hair dye hair dye (uncoded) Unknown Allergy A ctive fragrance in mycolog (uncoded) blister Allergy Active Results Component Value Reference Range Notes Complete Blood Count Auto Di ff Reviewed date:02/04/2024 12:32:16 PM Interpretation: Performing Lab:[facility], [address] [place] [phone] Notes/Report: White Blood Count 7.7 4.8-10.8 X10*3/uL [...] NRBC Abs Auto 0.000 0.0-0.012 X10*3/uL Comprehensive Davis. Panel Fa st Reviewed date:02/04/2024 03:36:23 PM Interpretation: Performing Lab:[facility], [address] [place] [phone] Notes/Report: Sodium 142 135-145 mmol/L Potassium 3.8 3.3-5.1 mmol/L Chloride 106 96-108 mmol/L Carbon Dioxide 30 22-29 mmol/L Anion Gap 10 12-20 Blood Urea Nitrogen 14 9-16 mg/dL Creatinine 0.65 0.5-1.4 mg/dL Estimated Glomerular Filt Rate > 60 NOTE: For -Tajik individuals, multiply the result by 1.210. Chronic [...] Panel Reviewed date:02/04/2024 03:36:00 PM Interpretation: Performing Lab:[facility], [address] [place] [phone] Notes/Report: Triglycerides 103 <150 mg/dL Desirable Triglyceride: [...] Total Reviewed date:02/04/2024 03:36:08 PM Interpretation: Performing Lab:[facility], [address] [place] [phone] Notes/Report: Vitamin D 25-OH Total 60.6 >30 [...] T4 Reviewed date:02/04/2024 03:35:51 PM Interpretation: Performing Lab:[address] [phone] Notes/Report: TSH reflex Free T4 4.02 0.32-4.0 uIU/mL UA ClnCatch+Micro w/rflx Cul t Reviewed date:02/11/2024 11:16:25 AM Interpretation:see back 02-11-24 Performing Lab:[address] [phone] Notes/Report: Urine, Clean Catch Color Urine Yellow Appearance Urine Clear PH 6.5 5.0-9.0 Glucose Urine UA Negative Negative mg/dL Urine Blood Moderate (2+) Negative Specific [place] - Urine 1.010 1.005-1.025 Urine Protein Negative Neg-Trace mg/dL Urine Ketones Negative Negative mg/dL Nitrite Urine Negative Negative Leukocyte Esterase Urine Trace Negative RBC Urine 6-10 0-2 /HPF WBC Urine 0-5 0-5 /HPF Squamous Epithelial Cell Urine 0-2 0-2 /HPF Bacteria Urine None Seen None Seen Hyaline Casts Urine 0-2 0-2 /LPF TSH reflex Free T4 Reviewed date:07/11/2024 12:41:15 PM Interpretation: Performing Lab:[address] [phone] Notes/Report: TSH reflex Free T4 1.40 0.32-4.0 uIU/mL Occult Blood, Stool, Guaiac Reviewed date:02/22/2024 03:13:03 PM Interpretation:Positive Performing Lab: Notes/Report: Positive Occult Blood, Stool, Guaiac pos Free T4 (Free Thyroxine) Reviewed date:02/04/2024 02:26:44 PM Interpretation: Performing Lab:[address] [phone] Notes/Report: Free T4 (Free Thyroxine) 0.96 0.71-1.85 ng/dL Hold Gold Reviewed date:02/04/2024 11:44:19 AM Interpretation: Performing Lab:[facility], [address] [place] [phone] Notes/Report: Anitha Serafin See Note Specimen held untested for 24 hours; Call to request Chemistry testing. Pathology Reviewed date:05/12/2024 02:45:10 PM Interpretation: Performing Lab:[facility], [address] [place] [phone] Notes/Report: - -------- Name: Sherlyn Su Age/Sex: 73/F : 1950 Unit#: [id number] Attend Dr: Jake Upton MD Re05/11/24 Status : [facility] Location: [facility] Disch: - -------- SPEC : [id number] RECD: 05/11/24-140 STATUS: MARY DUNCAN NUM: [id number] LON: 05/11/24-1330 [facility] DR: Jake Upton MD ENTERED: 05/11/24-850 SP TYPE: Surgical OTHR DR: Joshua Gongora MD ORDERED: HE Stain/9, Gross Micro L4/3 Diagnosis A. Colon, at 60 cm, polyp: Tubular adenoma; negative for high-grade dysplasia and carcinoma. B. Colon, sigmoid, biopsy: Colonic mucosa with no specific change. C. Colon, rectal polyp: Tubular adenoma; negative for high-grade dysplasia and carcinoma. Clinical History Pre-Op Dx: Other fecal abnormalities Post-Op Dx: Polyps Microscopic Description Microscopic [...] labeled C. CEDS CONTINUED ON NEXT PAGE - -------- Name: Sherlyn Su Age/Sex: 73/F : 1950 Unit#: [id number] Attend Dr: Jake Upton MD Re05/11/24 Status : [facility] Location: [facility] Disch: - -------- SPEC : [id number] RECD: 05/11/24-5777 STATUS: MARY DUNCAN NUM: [id number] LON: 05/11/24-[address]: Jake Upton MD ENTERED: 05/11/24-1417 SP TYPE: Surgical OTHR DR: Joshua Gongora MD ORDERED: HE Stain/9, Gross Micro L4/3 Copies To: Joshua Gongora MD [facility] [address] [place] [address] Jake Upton MD [facility] [address] [place] [address] - -------- Signed (signature on file) Magdalena [place] 05/12/24 1305 - -------- END OF REPORT Anitha Betancourt Reviewed date:07/11/2024 12:47:40 PM Interpretation: Performing Lab:[facility], [address] [place] [phone] Notes/Report: Anitha Betancourt See Note Specimen held untested for 24 hours; Call to request Chemistry testing. Reason For Referral Reason bowel habit changes Diagnosis 1 Bowel habit changes (R19.4) Referral Organization Joshua Gongora MD Referring Provider First Name Joshua Referring Provider Last Name Rolan Referring Provider Speciality Internal M edicine Referred Provider Jake Upton Referred Provider [...] Referral Priority Routine Referral Appointment Date 02/15/2024 Reason Ovarian cyst eval and treat for a second opinion Diagnosis 1 Ovarian cyst (N83.20 9) Referral Organization Joshua Gongora MD Referring Provider First Name Joshua Referring Provider Last Name Rolan Referring Provider Speciality Internal edicine Referred Provider [facility] [employer], [facility] [employer] Referred Provider Specialty OB - Gynecol ogy General Notes Eleonora gAosto 0 08/26/2024 10:49:58 AM >send US info faxed phone [phone], Eleonora Agosto 09/09/2024 02:14:26 PM > was told to call back in 2 weeks after 09-19, Eleonora Agosto 09/29/2024 03:23:08 PM > info was refaxed on 09-26-24 was told to refax to [phone] they have a wait list until the end of the year, Eleonora Agosto 09/30/2024 02:02:48 PM >not using this referral, not able to get patient for an appt. referral marked addressed Referral Priority Routine Reason Ovarian cyst secon d opinion Diagnosis 1 Ovarian cyst (N83.20 9) Referral Organization Joshua Gongora MD Referring Provider First Name Joshua Referring Provider Last Name Rolan Referring Provider Speciality Internal edicine Referred Provider ROSENDO MENDOZA Referred Provider Specialty OB - Gynecol ogy General Notes Eleonora Agosto 0 09/30/2024 02:07:15 PM >referral info faxed with US report x2 , Pretty Mcdaniel 10/13/2024 02:04:16 PM >sherlyn was given the number of dr bates office and she is going to call them, Celina Agostoette 10/14/2024 08:43:54 AM >called office was told provider needs to review her info Will call back next week, RebecaRoman, Pretty [place] 10/14/2024 08:59:53 AM SHERLYN CALLED THE OFFICE OF DR MENDOZA AND IS SCHEDULED FOR NOVEMBER 11 AT 9AM Referral Priority Routine Referral Appointment Date 11/11/2024 Medications Medication SIG (Take, Route, Frequency, Duration) [...] 1 application Externally QOD Active Clobetasol Prop Oint-Mineral Tar 0.05 & 2.3 % as directed Externally A ctive LORazepam 0.5 MG 1 tablet as needed Orally every 12 hour for 7 days 10/12/2017 Not-Taking Hyoscyamine Sulfate ER 0.375 MG 1 tablet Orally once per day for 30 days 07/28/2024 Not-Taking Immunizations Vaccine Route Administration Date Status Comme nts Flu Vaccine IM Intramuscular 01/09/2012 Administered Shingles Unknown 01/16/2012 Administered Flu Vaccine IM Intramuscular 02/01/2013 Administered Flu Vaccine IM Intramuscular 01/24/2014 Administered PPSV23 (Pnemovax) IM Intramuscular 08/29/2014 Administered zFluzone Quadrivalent IM Intramuscular 02/27/2015 Administ ered Fluarix Quadrivalent IM Intramuscular 01/24/2016 Administe red Prevnar 13 IM Intramuscular 09/22/2016 Administered Fluarix Quadrivalent IM Intramuscular 03/24/2017 Administe red TDaP Unknown 04/20/2017 Administered Shingrix IM Intramuscular 11/05/2017 Administered Shingrix IM Intramuscular 02/12/2018 Administered Fluarix Quadrivalent IM Intramuscular 02/22/2018 Administe red Fluarix Quadrivalent IM Intramuscular 02/07/2019 Administe red Fluarix Quadrivalent IM Intramuscular 12/28/2019 Administe red PPSV23 (Pnemovax) IM Intramuscular 01/05/2020 Administered Influenza High Dose IM Intramuscular 12/27/2020 Administer ed SARS-COV-2 Pfizer Unknown 06/20/2020 Administered SARS-COV-2 Pfizer Unknown 07/12/2020 Administered Influenza High Dose IM Intramuscular 01/06/2022 Administer ed Influenza High Dose IM Intramuscular 01/26/2023 Administer ed Tetanus Unknown 01/17/2014 Pending Social History Tobacco Use: Social History Observation [...] about q uitting Additional Findings: Tobacco User Curren t cigarette smoker, not currently using another [...] Interpretation Negative Section Notes: Using electronic cigarette Using electronic cigarette Using electronic cigarette Using electronic cigarette Using electronic cigarette Using electronic cigarette Using electronic cigarette Using electronic cigarette Using electronic cigarette Using electronic cigarette Using electronic cigarette Using electronic cigarette Using electronic cigarette Using electronic cigarette Using electronic cigarette Problems Problem Type SNOMED Code ICD Code Onset Dates Problem Status W/U Status Risk Notes Problem 158045365 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81) Active confirmed Problem 03668602 Sciatica of righ t side (M54.31) Active confirmed Problem 473387556 Pure hypercholesterolemia (E78.00) Active confirmed Problem 721635284 Sacroiliac pain (M53.3) Active confir med Problem 03453200 KASANDRA (obstructive sleep apnea) (G47.33) Active confirmed Problem Irritable bowel (48540759) Irritable bowel (K58.9) Active confirmed Problem 89497430 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 Problem 09744883 Meralgia paresth etica of right side (G57.11) Active confirmed Vital Signs Blood pressure diastolic 70 mm Hg 08/26/2024 Height 62.00 in 08/26/2024 Blood pressure systolic 122 mm Hg 08/26/2024 Weight 116 lbs 08/26/2024 BMI 21.21 kg/m2 08/26/2024 Encounters Encounter Location Date Provider Diagnosis Joshua Gongora MD [address] [place] [id number] 02/04/2024 Joshua Gongora 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 ; Pure hypercholesterolemia E78.00 and Vitamin D deficiency E55.9 Joshua Gongora MD [address] [place] [id number] 07/11/2024 Joshua Gongora 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 History of hematuria Z87.448 Joshua Gongora MD [address] [place] [id number] 02/11/2024 Joshua Gongora Bowel habit changes R19.4 ; Iodine hypothyroidism E01.8 ; History of hematuria Z87.448 ; Pure hypercholesterolemia E78.00 ; Vitamin D deficiency E55.9 ; Colon cancer screening Z12.11 and Depression screening Z13.31 Joshua Gongora MD [address] [place] [id number] 04/11/2024 Joshua Gongora History of hematuria Z87.448 ; Cyst of ovary, unspecified laterality N83.209 ; Irritable bowel syndrome with diarrhea K58.0 and Iodine hypothyroidism E01.8 Joshua Gongora MD [address] [place] [id number] 07/28/2024 Joshua Gongora Ovarian cyst N83.209 and Irritable bowel K58.9 Joshua Gongora MD [address] [place], [place] [id number] 08/26/2024 Joshua Gongora Ovarian cyst N83.209 and Irritable bowel syndrome with diarrhea K58.0 Joshua Gongora MD [address] [place], [place] [id number] 08/05/2024 Joshua Gongora Assessments Encounter Date Diagnosis (ICD Code) Assessment Notes Treatment Notes Treatment Clinical Notes Section Notes 02/04/2024 Iodine hypothyroidis m (ICD-10 - E01.8) 02/04/2024 Pure hypercholesterolemia (ICD-10 - E78.00) 07/11/2024 Iodine hypothyroidis m (ICD-10 - E01.8) 02/11/2024 Bowel habit changes (ICD-10 - R19.4) refer back to dr upton 02/11/2024 Iodine hypothyroidis m (ICD-10 - E01.8) leave on present meds. 04/11/2024 History of hematuria (ICD-10 - Z87.448) has been evaluated agian. they did not find any problems and told her it seemed to be her post menopausal situation. no further evaluation needed 04/11/2024 Cyst of ovary, unspecified laterality (ICD-10 - N83.209) bring the results of the cat scan to her desk director 07/28/2024 Ovarian cyst (ICD-10 - N83.209) followed by Invoice Coder 07/28/2024 Irritable bowel (ICD -10 - K58.9) patient verbalized understanding of medication and directions for use 08/26/2024 Ovarian cyst (ICD-10 - N83.209) is going to wait and repeat us in 3 months. going for a second opinion 02/04/2024 Vitamin D deficiency (ICD-10 - E55.9) 07/11/2024 History of hematuria (ICD-10 - Z87.448) 02/11/2024 History of hematuria (ICD-10 - Z87.448) referral back to urology in [place] 04/11/2024 Irritable bowel syndrome with diarrhea (ICD-10 - K58.0) going to see dr upton next week 08/26/2024 Irritable bowel syndrome with diarrhea (ICD-10 - K58.0) patient has not started meds yet. have explained the way to use them. if she has symptoms to take for a few days and then stop to see how she is doing 02/11/2024 Pure hypercholesterolemia (ICD-10 - E78.00) stable, will continue to monitor 04/11/2024 Iodine hypothyroidis m (ICD-10 - E01.8) 02/11/2024 Vitamin D deficiency (ICD-10 - E55.9) stable, will contiue current regiment 02/11/2024 Colon cancer screeni ng (ICD-10 - Z12.11) guaiac positive 02/11/2024 Depression screening (ICD-10 - Z13.31) negative screen 08/26/2024 Other is going Plan Of Treatment Pending Test Test Name Order Date Ultrasound : Abdomen 11/08/2010 Barium : Upper GI Series 11/08/2010 Electrocardiogram (EKG) 09/07/2015 Electrocardiogram (EKG) 11/18/2018 BONE DENSITY DEXA 06/06/2019 BREAST STEREO BIOPSY SI 07/06/2017 US THYROID 02/03/2023 Future Test Test Name Order Date BONE DENSITY DEXA 01/24/2020 Next Appt Details Provider Name:Joshua small, 02/10/2025 07:00:00 AM, [address] [place] [address], [address], [phone], Provider Name:Joshua small, 02/17/2025 08:30:00 AM, [address] [place] [address], [place] [address], [place], [place], [phone], Insurance Providers Payer Name Payer Address Payer Phone Subscriber Number Group Number Insured Name Patient Relationship to Insured Coverage Start Date Coverage End Date MEDICARE NHIC TESS [address] [place] [address] [id number] Sherlyn Su Self - patient is the insured [facility] [address] [place] [phone] [id number] Sherlyn Su Self - patient is the insured Medical (General) History Medical History History ICD Code hematuria work up in 2000 with cysto and 2010 ultrasound and cytology colonoscopy 2004; colonoscop y done 04/13/[address] Upton (repeat 10 yrs)05/11/24 colonoscopy pending path t ubular adenomos repeat in 5 y ears hematuria workup 2024 no need for furthe r evaluation
--- OUTSIDE RECORDS SUMMARY | 2024-12-21 14:12 | XMS_ITS | Patient Health Record ---
Author Organization [facility] Address [address] [place] [address] Care Team Providers Care Sole Stapler Welt Name Role Phone Rolan TEJADA, Joshua Primary Care Provider Julieta Zhou Jr, Jake Unavailable Allergies Allergen (clinical drug ingredient) Drug/Non Drug Allergy documented on EMR Reaction Allergy Type Onset Date Status mycolog cream (uncoded) Unknown Allergy Active Hair dye hair dye (uncoded) Unknown Allergy A ctive Results Component Value Reference Range Notes Transglutaminase IgA Reviewed date:04/20/2024 08:53:59 AM Interpretation: Performing Lab:[address] [phone] Notes/Report: Transglutaminase IgA <1.0 Value Interpretation ----- <15.0 Antibody not detected > or = 15.0 Antibody detected THIS TEST WAS PERFORMED AT: [facility] [address] [place] [phone] DIANA CABRERA MD Immunoglobulin A Reviewed date:04/20/2024 08:53:51 AM Interpretation: Performing Lab:[facility], [address] [place] [phone] Notes/Report: Immunoglobulin A 311 70-320 mg/dL THIS TEST WAS PERFORMED AT: [facility] [address] [place] [phone] DIANA CABRERA MD Pathology Reviewed date:05/12/2024 01:26:53 PM Interpretation: Performing Lab:[facility], [address] [place] [phone] Notes/Report: Reason For Referral No Information Medications Medication [...] Problem Status W/U Status Risk Notes Problem 28483895 Change in bowel habits (R19.4) Active confirmed Problem 80274544 Heme positive stool (R19.5) Active confirmed Vital Signs Temperature 97.8 degrees Fahrenheit 04/18/2024 Blood pressure diastolic 00 mm Hg 04/18/2024 Height 64 in 04/18/2024 Blood pressure systolic 000 mm Hg 04/18/2024 Weight 119 lb 4 oz lbs 04/18/2024 BMI 20.47 kg/m2 04/18/2024 Encounters Encounter Location Date Provider Diagnosis [facility] [address] [place] [id number] 05/11/2024 Jake Zhou Jr Colon polyps K63.5 and Change in bowel habits R19.4 [facility] [address] [place] [phone] 04/18/2024 Jake Zhou Jr Change in bowel habits R19.4 and Heme positive stool R19.5 [facility] [address] [place] [phone] 04/20/2024 Jake Zhou Jr [facility] [address] [place] [phone] 05/12/2024 Jake Zhou Jr Assessments Encounter Date [...] OF [place] [address] [place] [phone] [id number] JOHNNY FREEMAN Self - patient is the insured [facility] [address] [place] [phone] [id number] JOHNNY FREEMAN Self - patient is the insured Medical (General) History Medical History History ICD Code Colonoscopy 04/21, normal, and internal h emorrhoids, ten-year followup syncope anxiety hyperthyroidism headaches ovarian cyst Surgical History Surgery Date(Month/Year) tonsillectomy
--- OUTSIDE RECORDS SUMMARY | 2024-12-21 14:12 | XMS_ITS | Encounter Summary ---
Author Organization [facility] Address [address] [place] [address] Phone Care Team Providers Care Plant Protection Supervisor Name Role Phone Joshua Gongora MD Primary Care Provider Encounter Details Date Type Department Care Team (Late st Contact Info) Description 10/12/2017 Ancillary Orders Virtual Department [address] [place] [address] Joshua Gongora MD [address] [place] [address] [place] [address] Osteopenia, unspecified location Social History Tobacco Use [...] the right hip was calculated at 0.723 gm/pb7ynsl a T-score of -1.8 falling within the WHO classification ofosteopenia. Z-score of - 0.5. 0.2% loss of bone mineral density since thebaseline exam and 0.3% loss since the previous exam, both of which are notstatistically significant. Total bone mineral density in the left hip was calculated at 0.713 gm/hz2ugmm a T-score of -1.9 falling within the [...] location documented in this encounter Care Teams Plant Protection Supervisor Relationship Specialty Start Date End Date Joshua Gongora MD [address] [place] [address] [place] [address] PCP - General 04/09/17 documented as of this encounter Additional Source Comments The information contained in this document represents components of the legal health record. It is not the complete legal health record.[facility]
--- OUTSIDE RECORDS SUMMARY | 2024-12-21 14:13 | XMS_ITS | Clinical Summary ---
Author Organization [address] [place] [address] Phone Care Team Providers Care Pharmacy Operations Coordinator Name Role Phone Unavailable Primary Care Provider [...] Procedure Name Priority Date/Time Associated Diagnosis Comments [facility] SCREENING [facility]IGITAL Routine 10/26/2023 12:54 PM EDT Encounter for screening mammogram for malignant neoplasm of breast from Last 3 Months or Most Recently Relevant to Health Maintenance Results * [facility] SCREENING [facility]ITAL (10/26/2023 12:54 PM EDT) Anatomical Region Laterality Modality Mammography 10/26/2023 10:0 2 AM EDT Narrative 10/26/2023 12:[address] [facility] Diagnostic Imaging Department [address] [place] [address] Patient: JOHNNY FREEMAN D.O.B./Age/Sex: 1950 - 73 - F Unit#: [id number] Location/Status: SPDIMAM/REG CLI Mnemonic/Ordering Site: [facility] Ordering Physician: JOSHUA VASQUEZ MD [facility] Screening Digital - 10/26/23 - 1025 Report Status:Signed EXAM: [facility] Screening Digital EXAM DATE AND TIME: 10/26/2023 10:26 AM HISTORY: Annual screening COMPARISON: 10/09/2022, 09/30/2021, 09/28/2020, 09/27/2019 and 07/12/2018 TECHNIQUE: Bilateral digital breast tomosynthesis was performed in the CC and MLO projections. Computer aided detection with [employer] Guys 7.2-H and iPowerUp 3D 3.1 was employed. TISSUE DENSITY: c. [...] Note Flako Shaw MD - 01/20/2024 [facility] Diagnostic Imaging Department [address] [place] [id number] Patient: PETEJOHNNY D.O.B./Age/Sex: 1950 - 73 - F Unit#: [id number] Location/Status: SPDIMAM/REG CLI Mnemonic/Ordering Site: [facility] Ordering Physician: JOSHUA VASQUEZ MD [facility] Screening Digital - 10/26/23 - 1025 Report Status:Signed EXAM: [facility] Screening Digital EXAM DATE AND TIME: 10/26/2023 10:26 AM HISTORY: Annual screening COMPARISON: 10/09/2022, 09/30/2021, 09/28/2020, 09/27/2019 and 07/12/2018 TECHNIQUE: Bilateral digital breast tomosynthesis was performed in the CCand MLO projections. Computer aided detection with [employer]ys 7.2-H andiPowerUp 3D 3.1 was employed. TISSUE DENSITY: c. [...]
--- OUTSIDE RECORDS SUMMARY | 2024-12-21 14:13 | XMS_ITS | Encounter Summary ---
Author Organization [facility] Address [address] [place] [address] Care Team Providers Care Tiller Man Name Role Phone Unavailable Primary Care Provider Unavailabl e Encounter Details Date Type Department Care Team (Late st Contact Info) Description 02/23/2024 Lab Requisition [facility] - Main Lab [address] [facility] [place] [address] Teofilo Fletcher MD [address] [facility] [address] [place] [phone] Benign essential microscopic hematuria Social History Tobacco [...] and pathological findings. 03/15/2024 8:59 AM EST [facility] ([facility] Addendum electronically signed by Mark Young MD on 03/15/2024 at 8:59 AM Final Diagnosis Urine, Voided: Negative for high grade urothelial carcinoma. Acute inflammatory cells present. Note: UroVysion testing to follow. 03/15/2024 8:59 AM EST [facility] Gross Description A. Urine, Voided, : [id number] Recd 1 TP CYTO 1 TP FISH 03/15/2024 8:59 AM EST [facility] Disclaimer Unless otherwise specified, all tissue is 10% NB formalin fixed and paraffin embedded. 03/15/2024 8:59 AM [facility] Tissue Urine specimen from urethra / Unknown 02/15/2024 02/23/2024 1:55 PM EST us Teofilo Fletcher MD LAB PATHOLOGY ORDERABLES Edited Result - Final [facility]) [facility] [address] [place] [address], documented in this encounter Visit Diagnoses Diagnosis Benign essential microscopic hematuria documented in this encounter
== END 2024-12-21 11:13 | disposition home or self-care (01) ==
LOC: HO.HMGAL 11:03
PROVIDERS: PCP Internal Medicine; Visit Provider Registered Nurse Emergency
DX: J30.89 Other allergic rhinitis (principal)
CPT/HCPCS: 95117; 95165

== ENCOUNTER 2025-01-09 11:45 | Outpatient (AMB) | payer MEDICARE, OTHER, SELFPAY ==
--- OUTSIDE RECORDS SUMMARY | 2024-04-11 05:00 | XMS_ITS ---
Author Organization Joshua Gongora MD Address [address] [place] [phone] Care Team Providers Care Dancing Instructor Name Role Phone Joshua Gongora Primary Care [...] Externally Twice a day Unknown Clobetasol Prop Oint-Johnson Tar 0.05 & 2.3 % as directed [...] Problem Status W/U Status Risk Notes Problem [id number] Irritable bowel syndrome with diarrhea (K58.0) Active confirmed Vital Signs Blood pressure systolic 134 mm Hg 04/11/19 25 Blood pressure diastolic 76 mm Hg 025 Height 62.00 in 04/11/2024 Weight 119 lbs 04/11/2024 BMI 21.76 kg/m2 04/11/2024 weight is up 4 pounds since 02-11-24 Encounters Encounter Location Date Provider Diagnosis Joshua Gongora MD [address] [place] [address] [address] [place], [place] [phone] 04/11/2024 Joshua Gongora History of hematuria Z87.448 [...] results of the cat scan to her child and adolescent therapist 04/11/2024 Irritable bowel syndrome with diarrhea (ICD-10 [...] results of the cat scan to her child and adolescent therapist Irritable bowel syndrome with diarrhea g oing to see dr upton next week Next Appt Details Follow Up: 3 Months, Reason: Provider Name:Joshua Elliottreta ier, 02/10/2025 07:00:00 AM, [address] [place] [address], [address], [place], [place], [phone], Provider Name:Joshua Sainz ier, 02/17/2025 08:30:00 AM, [address] [facility], [address], [place], [place], [phone], Progress Notes * Kathy FREEMAN MDOB:1950 (73 yo F)Acc No.[id number]:04/11/2024 Patient: Kathy Anglin Provider: Yashira Gongora MD :1950 A ge:73 Y S ex:Female Date:04/11/2024 Address:[address] [place] [address] [phone] Subjective: * Chief Complaints: * 2 month/ [...] stic Procedure: * Medications: T akingClobetasol Prop Oint-Johnson Tar 0.05 & 2.3 % Kit as [...] tablet Orally every other dayTaking Clobetasol Prop Oint-Johnson Tar 0.05 & 2.3 % Kit as [...] results of the cat scan to her child and adolescent therapist 3. I rritable bowel syndrome with diarrhea Notes: going to see dr upton next week * Procedure Codes: * Follow Up: 3 Months * * Sign off status: Completed true * Provider: Yashira Gongora MD Date: 0 04/11/2024 Generated for Carinai sammy/Poncho/Salbadorransmitting on: 1 02:17 PM EDT History and Physical Notes * [...]
--- OUTSIDE RECORDS SUMMARY | 2024-05-11 09:00 | XMS_ITS ---
Author Organization [facility] Address [address] [place] [phone] Care Team Providers Care Carpet Installer Name Role Phone Rolan TEJADA, Joshua Primary Care Provider Julieta Zhou Jr, Jake Phipps REASON FOR VISIT change in bwl habits, heme positive stools Encounters Encounter Location Date Provider Diagnosis [facility] Outpatient [address] [place] [phone] 05/11/2024 Jake Zhou Jr Colon polyps K63.5 and Change in bowel habits R19.4 Assessments Encounter Date Diagnosis (ICD Code) Assessment Notes Treatment Notes Treatment Clinical Notes Section Notes 05/11/2024 Colon polyps (ICD-10 - K63.5) 05/11/2024 Change in bowel habits (ICD-10 - R19.4) Plan Of Treatment No Information Progress Notes * JOHNNY FREEMAN MDOB:1950 (74 yo F)Acc No.[id number]:05/11/2024 COLON WITH MAC Patient: Kindra KOHLERJOHNNY Carias Provider: Ori Zhou MD :1950 A ge:73 Y S ex:Female Date:05/11/2024 Address:[address] [place] [phone] Pcp:Joshua Gongora MD Subjective: * Chief Complaints: * 1 . Change in bwl habits, heme positive stools. * Medical History: Objective: * Vitals: Assessment: * Assessment: 1. C olon polyps - K63.5 (Primary) 2 . C hange in bowel habits - R19.4 Plan: * Treatment: * Procedure Codes: 4 5385 LESION REMOVAL COLONOSCOPY, 40526 COLONOSCOPY AND BIOPSY, Modifiers: 59 , 0529F INTRVL 3+YRS PTS CLNSCP DOCD * * The named appointment provid er may or may not be the originator of this progress note, and it is not deemed complete until electronically signed by the appointment provider. Sign off status: Pending * Provider: Ori Zhou MD Date: 0 05/11/2024 Generated for Alfonzo christianson/Poncho/Chingitting on: 1 02:18 PM EDT
--- OUTSIDE RECORDS SUMMARY | 2024-07-11 03:30 | XMS_ITS ---
Author Organization Joshua Gongora MD Address [address] [place] [phone] Care Team Providers Care Change Coordinator Name Role Phone Joshua Gongora Primary Care Provider [phone] Results Component Value Reference Range Notes TSH reflex Free T4 Reviewed date:07/11/2024 12:41:15 PM Interpretation: Performing Lab:[facility], [address] [place] [phone] Notes/Report: TSH reflex Free T4 1.40 0.32-4.0 uIU/mL REASON FOR VISIT TSH REFLEX FREE T 4 Encounters Encounter Location Date Provider Diagnosis Joshua Gongora MD [address] [place] [phone] 07/11/2024 Joshuakaushal Gongora 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 History of hematuria Z87.448 Assessments Encounter Date Diagnosis (ICD Code) Assessment Notes Treatment Notes Treatment Clinical Notes Section Notes 07/11/2024 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) 07/11/2024 History of hematuria (ICD-10 - Z87.448) Plan Of Treatment Next Appt Details Provider Name:Joshua Sainz ier, 02/10/2025 07:00:00 AM, [address] [place] [address], Suite [facility], [place], [place], [phone], Provider Name:Joshua Sainz ier, 02/17/2025 08:30:00 AM, [address] [place] [address], [place] [address], [place], [place], [phone], Progress Notes * Kathy FREEMAN MDOB:1950 (74 yo F)Acc No.[id number]:07/11/2024 Progress Note Patient: Kathy BLAS Provider: Yashira Gongora MD :1950 A ge:73 Y S ex:Female Date:07/11/2024 Address:[address] [place] [address] Subjective: * Chief Complaints: * 1 . [...] Gongora MD Date: 0 07/11/2024 Generated for Alfnozo christianson/Poncho/eTransmitting on: 1 02:18 PM EDT
--- OUTSIDE RECORDS SUMMARY | 2024-07-28 09:30 | XMS_ITS ---
Author Organization Joshua Gongora MD Address [address] [place] [phone] Care Team Providers Care Seafood Harvester Name Role Phone Joshua Gongora Primary Care Provider [phone] Allergies Allergen (clinical drug ingredient) Drug/Non Drug [...] Externally Twice a day Active Clobetasol Prop Oint-[place] Tar 0.05 & 2.3 % as directed Externally A ctive Problems Problem Type SNOMED Code ICD Code Onset Dates Problem Status W/U Status Risk Notes Problem Irritable bowel (52736188) Irritable bowel (K58.9) Active confirmed Vital Signs Blood pressure systolic 122 mm Hg 07/29/19 25 Blood pressure diastolic 80 mm Hg 025 Height 62.00 in 07/28/2024 Weight 116 lbs 07/28/2024 BMI 21.21 kg/m2 07/28/2024 weight is down 3 pounds [facility] 04-11-24 Encounters Encounter Location Date Provider Diagnosis Joshua Gongora MD [address] [place], [place] [phone] 07/28/2024 Joshua Gongora Ovarian cyst N83.209 and Irritable bowel K58.9 Assessments Encounter Date Diagnosis (ICD Code) Assessment Notes Treatment Notes Treatment Clinical Notes Section Notes 07/28/2024 Ovarian cyst (ICD-10 - N83.209) followed by Concrete Foreman 07/28/2024 Irritable bowel (ICD-10 - K58.9) patient verbalized understanding of medication and directions for use Plan Of Treatment Medication Medication Name Sig Start Date Stop Date Notes Hyoscyamine Sulfate ER 0.375 MG 1 tablet Orally once per day for 30 days 07/28/2024 Treatment Notes Assessment Notes Ovarian cyst followed by Concrete Foreman Irritable bowel patient verbalized u nderstanding of medication and directions for use Next Appt Details Follow Up: 4 Weeks, Reason: Provider Name:Joshua small, 02/10/2025 07:00:00 AM, [address], [address], [place], [place], [phone], Provider Name:Joshua small, 02/17/2025 08:30:00 AM, [address], [address], [place], [place], [phone], Progress Notes * Kathy FREEMAN MDOB:1950 (73 yo F)Acc No.[id number]:07/28/2024 Progress Notes Patient: Kathy BLAS Provider: Yashira Gongora MD :1950 A ge:73 Y S ex:Female Date:07/28/2024 Address:[address] [place] [address], [id number] Subjective: * Chief Complaints: * 3 MO F/U * HPI: S ymptom(s): patient is a 73 yo female here for 3 month follow up visit/ doing well/ 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
--- OUTSIDE RECORDS SUMMARY | 2024-08-05 09:27 | XMS_ITS ---
Author Organization Joshua Gongora MD Address [address] [place] [phone] Care Team Providers Care Custom Designer Name Role Phone Joshua Gongora Primary Care Provider Encounters Encounter Location Date Provider Diagnosis Joshua Gongora MD [address] [place] [phone] 08/05/2024 Joshua Gongora Plan Of Treatment Next Appt Details Provider Name:Joshua small, 02/10/2025 07:00:00 AM, [address], [address], [place], [place], [phone], Provider Name:Joshua small, 02/17/2025 08:30:00 AM, [address], [address], [place], [phone], Progress Notes * Kathy FREEMAN MDOB:1950 (73 yo F)Acc No.[id number]:08/05/2024 Patient: Kathy BLAS :1950 A ge:73 Y S ex:Female Address:[address] [place] [address], [facility] [place] [address] * true * Date: Generated for Alfonzo christianson/Poncho/Garlandsmitting on: 02:18 PM EDT
--- OUTSIDE RECORDS SUMMARY | 2024-08-26 06:15 | XMS_ITS ---
Author Organization Joshua Gongora MD Address [address] [place] [phone] Care Team Providers Care Ferris Wheel Attendant Name Role Phone Joshua Gongora Primary Care Provider [phone] Allergies Allergen (clinical drug ingredient) Drug/Non Drug [...] Provider Speciality Internal M edicine Referred Provider [facility] MOTHER HELPER [employer], [facility] [employer]HER [employer]PER [employer] Referred Provider Specialty OB - Gynecol ogy General Notes SurendraCelinaEleonora 0 08/26/2024 10:49:58 AM >send US info faxed phone [phone], Eleonora Agosto 09/09/2024 02:14:26 PM > was told to call back in 2 weeks after 09-19, Eleonora Agosto 09/29/2024 03:23:08 PM > info was refaxed on 09-26-24 was told to refax to [phone] they have a wait list until the [...] 1 application Externally QOD Active Clobetasol Prop Oint-[place] Tar 0.05 & 2.3 % as directed [...] Location Date Provider Diagnosis Joshua Gongora MD [address] [place] [address] [address] [place], [place] [phone] 08/26/2024 Joshua Gongora Ovarian cyst N83.209 and [...] eval and treat for a second opinion, [facility] MOTHER HELPER Group [facility] MOTHER HELPER Group [facility] Next Appt Details Provider Name:Joshua small, 02/10/2025 07:00:00 AM, [address] [place] [address], [address], [place], [place], [phone], Provider Name:Joshua Sainz ier, 02/17/2025 08:30:00 AM, [address] [place] [address], [address], [place], [place], [phone], Progress Notes * Kathy FREEMAN MDOB:1950 (73 yo F)Acc No.[id number]:08/26/2024 Progress Notes Patient: Kathy BLAS Teresa Provider: Yashira Gongora MD :1950 A ge:73 Y S ex:Female Date:08/26/2024 Address:[facility] [place] [address] [phone] Subjective: * Chief Complaints: * 1 month [...] stic Procedure: * Medications: T akingClobetasol Prop Oint-[place] Tar 0.05 & 2.3 % Kit as [...] Externally Twice a day Taking Clobetasol Prop Oint-[place] Tar 0.05 & 2.3 % Kit as [...] 0 08/26/2024 Generated for Alfonzo christianson/Poncho/Yen on: 02:18 PM EDT History and Physical Notes * [...] Referred Provider Not es 08/26/2024 Joshua Gongora [facility] MOTHER HELPER [employer], [facility] MOTHER HELPER Group [facility] Ovarian cyst eval and treat for a second opinion
--- OUTSIDE RECORDS SUMMARY | 2025-01-09 14:18 | XMS_ITS | Patient Health Record ---
Author Organization [facility] Address [address] [place] [address] Care Team Providers Care Car Rental Agency Manager Name Role Phone Joshua Gongora MD Primary Care Provider Bereket Ibarra Unavailable [phone] Allergies Allergen (clinical drug ingredient) Drug/Non Drug Allergy documented on EMR Reaction Allergy Type Onset Date Status Mycolog creme, hair dye (uncoded) Unknown Allergy Active Adhesive Tape Unknown Drug Allergy Act alix Reason For Referral No Information Medications Medication SIG (Take, Route, Frequency, Duration) Notes Start Date End Date Status Clobetasol Prop Oint-[place] Tar Active Levothyroxine Sodium Active metroNIDAZOLE Not-Bon colon Social History Tobacco use other than smoking: Question Answer Notes Are you an other tobacco user? No Problems Problem Type SNOMED Code ICD Code Onset Dates Problem Status W/U Status Risk Notes Problem Acquired hallux valgus (41237840) Hallux valgus (acquired), left foot (M20.12) Active confirmed Problem Acquired hallux valgus (09269426) Hallux valgus (acquired), right foot (M20.11) Active confirmed Plan Of Treatment Pending Test Test Name Order Date X ray : Foot, left 2V 10/04/2014 X ray : Foot, right 2V 10/04/2014 Insurance Providers Payer Name Payer Address Payer Phone Subscriber Number Group Number Insured Name Patient Relationship to Insured Coverage Start Date Coverage End Date [employer] ([facility]) [address] [place] [address] [id number] Kathy Su Self - patient is the insured Medical (General) History Medical History History ICD Code Back,Hip,and Knee pain Headaches Hiatal hernia Thyroid disorder Chicken pox Measles
--- OUTSIDE RECORDS SUMMARY | 2025-01-09 14:18 | XMS_ITS | Encounter Summary ---
Author Organization [facility] Address [address] [place] [address] Phone Care Team Providers Care Java Lead Engineer Name Role Phone Joshua Gongora MD Primary Care Provider Encounter Details Date Type Department Care Team (Late st Contact Info) Description 06/09/2019 Ancillary Orders Virtual Department [address] [place] [address] Joshua Gongora MD [address] [place] [address] [place] [address] Osteopenia, unspecified location; Osteopenia of left hip; [...] of osteopenia and representing a 4% decline [id number] Total bone mineral density in the L2-L4 vertebral bodies was calculated at0.897 gm/cm2 with a T-score of -1.7 and Z-score of 0.4, falling within theWHO classification of osteopenia, without significant interval change [id number]. Total bone mineral density in the right hip was calculated at 0.669 gm/ed3rpvf a T-score of -2.2 and Z-score of [...] location documented in this encounter Care Teams Java Lead Engineer Relationship Specialty Start Date End Date Joshua Gongora MD [address] [place] [address] [place] [address] PCP - General 04/09/17 documented as of this encounter Additional Source Comments The information contained in this document represents components of the legal health record. It is not the complete legal health record.[facility]
--- OUTSIDE RECORDS SUMMARY | 2025-01-09 14:18 | XMS_ITS | Clinical Summary ---
Author Organization [facility] Address [address] [place] [address] Phone Care Team Providers Care Ambulatory Analyst Name Role Phone Joshua Gongora MD Primary [...] her the option for second opinion with monogram maker oncologist; with knowledge that these referrals generally [...] Visit [facility] [address] [place] [address] Susan Merchant MD Right ovarian cyst (Primary Dx) 11/16/2024 9:19 AM EDT - 11/16/2024 11:59 PM EDT Hospital Encounter [facility] [address] [place] [address] Susan Merchant MD Discharge Disposition: Home or Self Care 11/16/2024 Telephone [facility] [address] [place] [address] Susan Merchant MD from Last 3 Months [...] FOBT 10/21/1996 SIGMOIDOSCOPY 10/21/1996 VIRTUAL COLONOSCOPY 10/21/1996 MAMMOGRAM 10/09/2024 10/09/2022, 06/04, 07/12/2018, Additional history exists INFLUENZA VACCINE (#1) 2024 , 01/26/2023, 01/06/2022, Additional history exists COVID-19 VACCINE ( season) 2024 01/01/2024, 07/23/2023, 12/25/2022, Additional history exists Adult Td,Tdap Booster 04/20/2027 [...] of osteopenia and representing a 4% decline [id number] Total bone mineral density in the L2-L4 vertebral bodies was calculated at0.897 gm/cm2 with a T-score of -1.7 and Z-score of 0.4, falling within theWHO classification of osteopenia, without significant interval change [id number]. Total bone mineral density in the right hip was calculated at 0.669 gm/tj3qqel a T-score of -2.2 and Z-score of [...] Maintenance Insurance MEDICARE PART A & B [facility] MEDICARE SUPPLEMENT MEDICARE PART A & B [employer] SUPPLEMENT MEDICARE PART A & B Member Subscriber Plan / Payer ( fective 2016-Present) Name:Kathy Su Member ID:[id number] Relation to Subscriber:Self Name:Katyh Su Subscriber ID:[id number] Payer ID:[id number] Group ID:Not on file Type:Medicare Address: [employer] [address] [place] [address] [place] [address] [employer] MEDICARE SUPPLEMENT MEDICARE PART A & B [employer] MEDICARE SUPPLEMENT MEDICARE PART A & B [facility] EXTENSION MEDICARE SUPPLEMENT MEDICARE PART A & B [facility] EXTENSION MEDICARE SUPPLEMENT MEDICARE PART A & B [employer] MEDICARE SUPPLEMENT MEDICARE PART A & [place] [phone] MEDICARE PART A & B [facility] EX[employer]ION MEDICARE SUPPLEMENT Care Teams Ambulatory Analyst Relationship Specialty Start Date End Date Joshua Gongora MD [address] [place] [address] [place] [address] PCP - General 04/09/17 Additional Source Comments The information contained in this document represents components of the legal health record. It is not the complete legal health record.[facility]
--- OUTSIDE RECORDS SUMMARY | 2025-01-09 14:18 | XMS_ITS | Encounter Summary ---
Author Organization [facility] Address [address] [place] [address] Phone Care Team Providers Care Work Order Sorting Clerk Name Role Phone Joshua Gongora MD Primary Care Provider Encounter Details Date Type Department Care Team (Late st Contact Info) Description 06/08/2019 Ancillary Orders Virtual Department 30 [place] [address] Joshua Gongora MD [address] [place] [address] [place] [address] Osteopenia, unspecified location Social History Tobacco Use [...] location documented in this encounter Care Teams Work Order Sorting Clerk Relationship Specialty Start Date End Date Joshua Gongora MD [address] [place] [address] [place] [address] PCP - General 04/09/17 documented as of this encounter Additional Source Comments The information contained in this document represents components of the legal health record. It is not the complete legal health record.[facility]
--- OUTSIDE RECORDS SUMMARY | 2025-01-09 14:19 | XMS_ITS | Encounter Summary ---
Author Organization [facility] Address [address] [place] [address] Phone Care Team Providers Care Brush Clearer Surveying Name Role Phone Joshua Gongora MD Primary Care Provider Encounter Details Date Type Department Care Team (Late st Contact Info) Description 10/12/2017 Ancillary Orders Virtual Department [address] [place] [address] Joshua Gongora MD [address] [place] [address] [place] [address] Osteopenia, unspecified location Social History Tobacco Use [...] the right hip was calculated at 0.723 gm/df0qran a T-score of -1.8 falling within the WHO classification ofosteopenia. Z-score of - 0.5. 0.2% loss of bone mineral density since thebaseline exam and 0.3% loss since the previous exam, both of which are notstatistically significant. Total bone mineral density in the left hip was calculated at 0.713 gm/vz9nqwd a T-score of -1.9 falling within the [...] location documented in this encounter Care Teams Brush Clearer Surveying Relationship Specialty Start Date End Date Joshua Gongora MD [address] [place] [address] [place] [address] PCP - General 04/09/17 documented as of this encounter Additional Source Comments The information contained in this document represents components of the legal health record. It is not the complete legal health record.[facility]
--- OUTSIDE RECORDS SUMMARY | 2025-01-09 14:19 | XMS_ITS | Encounter Summary ---
Author Organization [facility] Address [address] [place] [address] Care Team Providers Care Data Processing Equipment Repairer Name Role Phone Unavailable Primary Care Provider Unavailabl e Encounter Details Date Type Department Care Team (Late st Contact Info) Description 02/23/2024 Lab Requisition [facility] - Main Lab [address] [facility] [place] [address] Teofilo Fletcher MD [address] [facility] [address] [place] [phone] Benign essential microscopic hematuria Social History Tobacco [...] and pathological findings. 03/15/2024 8:59 AM EST [facility] Addendum electronically signed by Mark Young MD on 03/15/2024 at 8:59 AM Final Diagnosis Urine, Voided: Negative for high grade urothelial carcinoma. Acute inflammatory cells present. Note: UroVysion testing to follow. 03/15/2024 8:59 AM EST [facility] Gross Description A. Urine, Voided, : [id number] Recd 1 TP CYTO 1 TP FISH 03/15/2024 8:59 AM EST [facility] Disclaimer Unless otherwise specified, all tissue is 10% NB formalin fixed and paraffin embedded. 03/15/2024 8:59 AM [facility] Tissue Urine specimen from urethra / Unknown 02/15/2024 02/23/2024 1:55 PM EST us Teofilo Fletcher MD LAB PATHOLOGY ORDERABLES Edited Result - Final [facility] [address] [place] [address], documented in this encounter Visit Diagnoses Diagnosis Benign essential microscopic hematuria documented in this encounter
--- OUTSIDE RECORDS SUMMARY | 2025-01-09 14:19 | XMS_ITS | Patient Health Record ---
Author Organization Joshua Gongora MD Address [address] [place], [place] [address] Care Team Providers Care Balancing Machine Set Up Worker Name Role Phone Joshua Gongora Primary Care Provider [phone] Allergies Allergen (clinical drug ingredient) Drug/Non Drug Allergy documented on EMR Reaction Allergy Type Onset Date Status Hair dye hair dye (uncoded) Unknown Allergy A ctive fragrance in mycolog (uncoded) blister Allergy Active Results Component Value Reference Range Notes Complete Blood Count Auto Di ff Reviewed date:02/04/2024 12:32:16 PM Interpretation: Performing Lab:[facility], [address] [place] [phone] Notes/Report: White Blood Count 7.7 4.8-10.8 X10*3/uL [...] NRBC Abs Auto 0.000 0.0-0.012 X10*3/uL Comprehensive [place]. Panel Fa st Reviewed date:02/04/2024 03:36:23 PM Interpretation: Performing Lab:[facility], [address] [place] [phone] Notes/Report: Sodium 142 135-145 mmol/L Potassium 3.8 3.3-5.1 mmol/L Chloride 106 96-108 mmol/L Carbon Dioxide 30 22-29 mmol/L Anion Gap 10 12-20 Blood Urea Nitrogen 14 9-16 mg/dL Creatinine 0.65 0.5-1.4 mg/dL Estimated Glomerular Filt Rate > 60 NOTE: For -Salvadorean individuals, multiply the result by 1.210. Chronic [...] Panel Reviewed date:02/04/2024 03:36:00 PM Interpretation: Performing Lab:[facility], [address] [place] [phone] Notes/Report: Triglycerides 103 <150 mg/dL Desirable Triglyceride: [...] Total Reviewed date:02/04/2024 03:36:08 PM Interpretation: Performing Lab:[facility], [address] [place] [phone] Notes/Report: Vitamin D 25-OH Total 60.6 >30 [...] T4 Reviewed date:02/04/2024 03:35:51 PM Interpretation: Performing Lab:[address] [phone] Notes/Report: TSH reflex Free T4 4.02 0.32-4.0 uIU/mL UA ClnCatch+Micro w/rflx Cul t Reviewed date:02/11/2024 11:16:25 AM Interpretation:see back 02-11-24 Performing Lab:[address] [phone] Notes/Report: Urine, Clean Catch Color Urine Yellow Appearance Urine Clear PH 6.5 5.0-9.0 Glucose Urine UA Negative Negative mg/dL Urine Blood Moderate (2+) Negative Specific [place] - Urine 1.010 1.005-1.025 Urine Protein Negative Neg-Trace mg/dL Urine Ketones Negative Negative mg/dL Nitrite Urine Negative Negative Leukocyte Esterase Urine Trace Negative RBC Urine 6-10 0-2 /HPF WBC Urine 0-5 0-5 /HPF Squamous Epithelial Cell Urine 0-2 0-2 /HPF Bacteria Urine None Seen None Seen Hyaline Casts Urine 0-2 0-2 /LPF TSH reflex Free T4 Reviewed date:07/11/2024 12:41:15 PM Interpretation: Performing Lab:[address] [phone] Notes/Report: TSH reflex Free T4 1.40 0.32-4.0 uIU/mL Occult Blood, Stool, Guaiac Reviewed date:02/22/2024 03:13:03 PM Interpretation:Positive Performing Lab: Notes/Report: Positive Occult Blood, Stool, Guaiac pos Free T4 (Free Thyroxine) Reviewed date:02/04/2024 02:26:44 PM Interpretation: Performing Lab:[address] [address] Notes/Report: Free T4 (Free Thyroxine) 0.96 0.71-1.85 ng/dL Hold Gold Reviewed date:02/04/2024 11:44:19 AM Interpretation: Performing Lab:[facility], [address] [place] [phone] Notes/Report: Anitha Serafin See Note Specimen held untested for 24 hours; Call to request Chemistry testing. Pathology Reviewed date:05/12/2024 02:45:10 PM Interpretation: Performing Lab:[facility], [address] [place] [phone] Notes/Report: - -------- Name: Sherlyn Su Age/Sex: 73/F : 1950 Unit#: [id number] Attend Dr: Jake Upton MD Re05/11/24 Status : [facility] Location: [facility] Disch: - -------- SPEC : [id number] RECD: 05/11/24-140 STATUS: MARY DUNCAN NUM: [id number] LON: 05/11/24-13[address] [facility] [address]: Jake Upton MD ENTERED: 05/11/24-902 SP TYPE: Surgical OTHR DR: Joshua Gongora [...] Sherlyn Su Age/Sex: 73/F : 1950 Unit#: [id number] Attend Dr: Jake Upton MD Re05/11/24 Status : [facility] Location: [facility] Disch: - -------- SPEC : [id number] RECD: 05/11/24-6187 STATUS: MARY DUNCAN NUM: [id number] LON: 05/11/24-[address]: Jake Upton MD ENTERED: 05/11/24-1417 SP TYPE: Surgical OTHR DR: Joshua Gongora MD ORDERED: HE Stain/9, Gross Micro L4/3 Copies To: Joshua Gongora MD [facility] [address] [place] [address] Jake Upton MD [facility] [address] [place] [address] - -------- Signed (signature on file) Magdalena Eden 05/12/24 1305 - -------- END OF REPORT Anitha Betancourt Reviewed date:07/11/2024 12:47:40 PM Interpretation: Performing Lab:[facility], [address] [place] [phone] Notes/Report: Anitha Betancourt See Note Specimen held [...] Referring Provider Speciality Internal edicine Referred Provider [facility] [employer], [facility] [employer] Referred Provider Specialty OB - Gynecol ogy General Notes Eleonora Agosto 0 08/26/2024 10:49:58 AM >send [place] info faxed phone [phone], Eleonora Agosto 09/09/2024 02:14:26 PM > was told to call back in 2 weeks after 09-19, Eleonora Agosto 09/29/2024 03:23:08 PM > info was refaxed on 09-26-24 was told to refax to [phone] they have a wait list until the [...] Referring Provider Speciality Internal edicine Referred Provider ROESNDO MENDOZA Referred Provider Specialty OB - Gynecol [...] AM SHERLYN CALLED THE OFFICE OF DR MEDNOZA AND IS SCHEDULED FOR NOVEMBER 11 AT [...] 1 application Externally QOD Active Clobetasol Prop Oint-[place] Tar 0.05 & 2.3 % as directed [...] Problem Status W/U Status Risk Notes Problem 124652811 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81) Active confirmed Problem 38367803 Sciatica of righ t side (M54.31) Active confirmed Problem 317188382 Pure hypercholesterolemia (E78.00) Active confirmed Problem 656344434 Sacroiliac pain (M53.3) Active confir med Problem 90800838 KASANDRA (obstructive sleep apnea) (G47.33) Active confirmed Problem Irritable bowel (43815716) Irritable bowel (K58.9) Active confirmed Problem 08227439 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 Problem 97818861 Meralgia paresth etica of right side (G57.11) Active confirmed Vital Signs Blood pressure diastolic 70 mm Hg 08/26/2024 Height 62.00 in 08/26/2024 Blood pressure systolic 122 mm Hg 08/26/2024 Weight 116 lbs 08/26/2024 BMI 21.21 kg/m2 08/26/2024 Encounters Encounter Location Date Provider Diagnosis Joshua Gongora MD [address] [place] [id number] 02/04/2024 Joshua Gongora 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 ; Pure hypercholesterolemia E78.00 and Vitamin D deficiency E55.9 Joshua Gongora MD [address] [place] [id number] 07/11/2024 Joshua Gongora 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 History of hematuria Z87.448 Joshua Gongora MD [address] [place] [id number] 02/11/2024 Joshua Gongora Bowel habit changes R19.4 ; Iodine hypothyroidism E01.8 ; History of hematuria Z87.448 ; Pure hypercholesterolemia E78.00 ; Vitamin D deficiency E55.9 ; Colon cancer screening Z12.11 and Depression screening Z13.31 Joshua Gongora MD [address] [place] [id number] 04/11/2024 Joshua Gongora History of hematuria Z87.448 ; Cyst of ovary, unspecified laterality N83.209 ; Irritable bowel syndrome with diarrhea K58.0 and Iodine hypothyroidism E01.8 Joshua Gongora MD [address] [place] [id number] 07/28/2024 Joshua Gongora Ovarian cyst N83.209 and Irritable bowel K58.9 Joshua Gongora MD [address] [place], [place] [id number] 08/26/2024 Joshua Gongora Ovarian cyst N83.209 and Irritable bowel syndrome with diarrhea K58.0 Joshua Gongora MD [address] [place], [place] [id number] 08/05/2024 Joshua Gongora Assessments Encounter Date Diagnosis [...] results of the cat scan to her environmental sustainability manager 07/28/2024 Ovarian cyst (ICD-10 - N83.209) followed by [employer] [facility] 07/28/2024 Irritable bowel (ICD -10 - K58.9) patient verbalized understanding of medication and directions for use 08/26/2024 Ovarian cyst (ICD-10 - N83.209) is going to wait and repeat us in 3 months. going for a second opinion 02/04/2024 Vitamin D deficiency (ICD-10 - E55.9) 07/11/2024 History of hematuria (ICD-10 - Z87.448) 02/11/2024 History of hematuria (ICD-10 - Z87.448) referral back to urology in [place] 04/11/2024 Irritable bowel syndrome with diarrhea (ICD-10 [...] Details Provider Name:Joshua small, 02/10/2025 07:00:00 AM, [address] [place] [address], [address], [phone], Provider Name:Joshua small, 02/17/2025 08:30:00 AM, [address] [place] [address], [place] [address], [place], [place], [id number], Insurance Providers Payer Name Payer Address Payer Phone Subscriber Number Group Number Insured Name Patient Relationship to Insured Coverage Start Date Coverage End Date MEDICARE [employer]IC TESS [address] [place] [address] [id number] Sherlyn Su Self - patient is the insured [facility] [address] [place] [address] [id number] Sherlyn Su Self - patient is [...]
--- OUTSIDE RECORDS SUMMARY | 2025-01-09 14:19 | XMS_ITS | Clinical Summary ---
Author Organization [address] Address [address] [place] [phone] Phone Care Team Providers Care Masonry Inspector Name Role Phone Unavailable Primary Care Provider Unavailabl e Social History Tobacco Use Types Packs/Day Years Used Date Smoking Tobacco: Never Assessed Comments Unknown Sex and Gender Information Value Date Recorded Sex Assigned at Not on file Legal Sex Female 3:04 AM EST Gender Identity Not on file Sexual Orientation Not on file Plan of Treatment Health Maintenance Due Date Last Done Comments Colorectal Cancer Screening: Colonoscopy 1950 DTaP,Tdap,and Td Vaccines (1 - Tdap) 10/21/1970 Pneumococcal Vaccine: 50+ Years (1 of 1 - PCV) 10/21/2001 Zoster Vaccines (1 of 2) 10/21/2001 Falls Risk Assessment 03/09/2022 Hepatitis C Screening 03/09/2022 Medicare Annual Wellness Visit 03/09/2022 Osteoporosis Screening (Bone Density Screening) 03/09/2022 Social Influencers of Health Screening 03/09/2022 Depression Screening 04/06/2024 COVID-19 Vaccine ( - season) 2024 Influenza Vaccine (#1) 2024 Breast [...] Procedure Name Priority Date/Time Associated Diagnosis Comments [facility] SCREENING DIGITAL Routine 10/26/2023 12:54 PM EDT Encounter for screening mammogram for malignant neoplasm of breast from Last 3 Months or Most Recently Relevant to Health Maintenance Results * [facility] SCREENING DIGITAL (10/26/2023 12:54 PM EDT) Anatomical Region Laterality Modality Mammography 10/26/2023 10:0 2 AM EDT Narrative 10/26/2023 12:54 PM EDT [facility] Diagnostic Imaging Department [address] [place] [address] Patient: JOHNNY FREEMAN D.O.B./Age/Sex: 1950 - 73 - F Unit#: [id number] Location/Status: SPDIMAM/REG CLI Mnemonic/Ordering Site: [facility] Ordering Physician: JOSHUA VASQUEZ MD [facility] Screening Digital - 10/26/23 - 1025 Report Status:Signed EXAM: [facility] Screening Digital EXAM DATE AND TIME: 10/26/2023 10:26 AM HISTORY: Annual screening COMPARISON: 10/09/2022, 09/30/2021, 09/28/2020, 09/27/2019 and 07/12/2018 TECHNIQUE: Bilateral digital breast tomosynthesis was performed in the CC and MLO projections. Computer aided detection with [employer] 7.2-H and [facility] 3D 3.1 was employed. TISSUE DENSITY: c. [...] Procedure Note Flako Shaw MD - 01/20/2024 [facility] Diagnostic Imaging Department [address] [place] [address] Patient: PETEJOHNNY D.O.B./Age/Sex: 1950 - 73 - F Unit#: [id number] Location/Status: SPDIMAM/REG CLI Mnemonic/Ordering Site: [facility] Ordering Physician: JOSHUA VASQUEZ MD [facility] Screening Digital - 10/26/23 - 1025 Report Status:Signed EXAM: [facility] Screening Digital EXAM DATE AND TIME: 10/26/2023 10:26 AM HISTORY: Annual screening COMPARISON: 10/09/2022, 09/30/2021, 09/28/2020, 09/27/2019 and 07/12/2018 TECHNIQUE: Bilateral digital breast tomosynthesis was performed in the CCand MLO projections. Computer aided detection with [employer] 7.[facility]-H [facility] 3D 3.[facility] was employed. TISSUE DENSITY: c. [...]
--- OUTSIDE RECORDS SUMMARY | 2025-01-09 14:19 | XMS_ITS | Patient Health Record ---
Author Organization [facility] Address [address] [place] [address] Care Team Providers Care Damage Adjuster Name Role Phone Rolan TEJADA, Joshua Primary Care Provider Julieta Zhou Jr, Jake Unavailable Allergies Allergen (clinical drug ingredient) Drug/Non Drug Allergy documented on EMR Reaction Allergy Type Onset Date Status mycolog cream (uncoded) Unknown Allergy Active Hair dye hair dye (uncoded) Unknown Allergy A ctive Results Component Value Reference Range Notes Transglutaminase IgA Reviewed date:04/20/2024 08:53:59 AM Interpretation: Performing Lab:[address] [phone] Notes/Report: Transglutaminase IgA <1.0 Value Interpretation ----- <15.0 Antibody not detected > or = 15.0 Antibody detected THIS TEST WAS PERFORMED AT: [employer] [address] [place] [phone] DIANA CABRERA MD Immunoglobulin A Reviewed date:04/20/2024 08:53:51 AM Interpretation: Performing Lab:[facility], [address] [place] [phone] Notes/Report: Immunoglobulin A 311 70-320 mg/dL THIS TEST WAS PERFORMED AT: [employer] [address] [place] [phone] DIANA CABRERA MD Pathology Reviewed date:05/12/2024 01:26:53 PM Interpretation: Performing Lab:[facility], [address] [place] [phone] Notes/Report: Reason For Referral No Information Medications [...] Problem Status W/U Status Risk Notes Problem [id number] Change in bowel habits (R19.4) Active confirmed Problem [id number] Heme positive stool (R19.5) Active confirmed Vital Signs Temperature 97.8 degrees Fahrenheit 04/18/2024 Blood pressure diastolic 00 mm Hg 04/18/2024 Height 64 in 04/18/2024 Blood pressure systolic 000 mm Hg 04/18/2024 Weight 119 lb 4 oz lbs 04/18/2024 BMI 20.47 kg/m2 04/18/2024 Encounters Encounter Location Date Provider Diagnosis [facility] [address] [place] [phone] 05/11/2024 Jake Zhou Jr Colon polyps K63.5 and Change in bowel habits R19.4 [facility] [address] [place] [phone] 04/18/2024 Jake Zhou Jr Change in bowel habits R19.4 and Heme positive stool R19.5 [facility] [address] [place] [phone] 04/20/2024 Jake Zhou Jr [facility] [address] [place] [phone] 05/12/2024 Jake Zhou Jr Assessments Encounter Date [...] OF [place] [address] [place] [phone] [id number] JOHNNY FREEMAN Self - patient is the insured [employer] [facility] [address] [place] [phone] [id number] JOHNNY FREEMAN Self - patient is the insured Medical (General) History Medical History History ICD Code Colonoscopy 04/21, normal, and internal h emorrhoids, ten-year followup syncope anxiety hyperthyroidism headaches ovarian cyst Surgical History Surgery Date(Month/Year) tonsillectomy
== END 2025-01-09 11:49 | disposition home or self-care (01) ==
LOC: HO.HMGAL 11:45
PROVIDERS: PCP Internal Medicine; Visit Provider Registered Nurse Emergency
DX: J30.89 Other allergic rhinitis (principal)
CPT/HCPCS: 95117; 95165

== ENCOUNTER 2025-01-25 11:39 | Outpatient (AMB) | payer MEDICARE, OTHER, SELFPAY | END 2025-01-25 11:40 | disposition home or self-care (01) | LOC: HO.HMGAL 11:39 | PROVIDERS: PCP Internal Medicine; Visit Provider Registered Nurse Emergency | DX: J30.89 Other allergic rhinitis (principal) | CPT/HCPCS: 95117; 95165 ==

== ENCOUNTER 2025-02-10 12:33 | Outpatient (REF) | payer MEDICARE, OTHER, SELFPAY ==
--- OUTSIDE RECORDS SUMMARY | 2024-02-04 02:15 | XMS_ITS ---
Author Organization Joshua Gongora MD Address [address] [place] [phone] Care Team Providers Care Orthotics Prosthetics Technician Name Role Phone Joshua Gongora Primary Care Provider Results Component Value Reference Range Notes Complete Blood Count Auto Di ff Reviewed date:02/04/2024 12:32:16 PM Interpretation: Performing Lab:[facility], [address] [place] [phone] Notes/Report: White Blood Count 7.7 4.8-10.8 X10*3/uL [...] NRBC Abs Auto 0.000 0.0-0.012 X10*3/uL Comprehensive [place]. Panel Fa st Reviewed date:02/04/2024 03:36:23 PM Interpretation: Performing Lab:[facility], [address] [place] [phone] Notes/Report: Sodium 142 135-145 mmol/L Potassium 3.8 3.3-5.1 mmol/L Chloride 106 96-108 mmol/L Carbon Dioxide 30 22-29 mmol/L Anion Gap 10 12-20 Blood Urea Nitrogen 14 9-16 mg/dL Creatinine 0.65 0.5-1.4 mg/dL Estimated Glomerular Filt Rate > 60 NOTE: For -Iraqi individuals, multiply the result by 1.210. Chronic [...] Panel Reviewed date:02/04/2024 03:36:00 PM Interpretation: Performing Lab:[facility], [address] [place] [phone] Notes/Report: Triglycerides 103 <150 mg/dL Desirable Triglyceride: [...] Total Reviewed date:02/04/2024 03:36:08 PM Interpretation: Performing Lab:[facility], [address] [place] [phone] Notes/Report: Vitamin D 25-OH Total 60.6 >30 [...] T4 Reviewed date:02/04/2024 03:35:51 PM Interpretation: Performing Lab:[facility], [address] [place] [phone] Notes/Report: TSH reflex Free T4 4.02 0.32-4.0 uIU/mL UA ClnCatch+Micro w/rflx Cul t Reviewed date:02/11/2024 11:16:25 AM Interpretation:see back 02-11-24 Performing Lab:[facility], [address] [place] [phone] Notes/Report: Urine, Clean Catch Color Urine Yellow Appearance Urine Clear PH 6.5 5.0-9.0 Glucose Urine UA Negative Negative mg/dL Urine Blood Moderate (2+) Negative Specific [place] - Urine 1.010 1.005-1.025 Urine Protein Negative [...] Location Date Provider Diagnosis Joshua Gongora MD [address] [place] [address] [place] [phone] 02/04/2024 Joshua Gongora 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 ; Pure hypercholesterolemia E78.00 and Vitamin D deficiency E55.9 Assessments Encounter Date Diagnosis (ICD Code) Assessment Notes Treatment Notes Treatment Clinical Notes Section Notes 02/04/2024 Iodine hypothyroidis m (ICD-10 - E01.8) 02/04/2024 Pure hypercholesterolemia (ICD-10 - E78.00) 02/04/2024 Vitamin D deficiency (ICD-10 - E55.9) Plan Of Treatment Next Appt Details Provider Name:Joshua small, 02/17/2025 08:30:00 AM, [address] [facility], [address], [place], [place], [phone], Progress Notes * Kathy FREEMAN MDOB:1950 (74 yo F)Acc No.[id number]:02/04/2024 Progress Note Patient: Kathy BLAS Provider: Yashira Gongora MD :1950 A ge:73 Y S ex:Female Date:02/04/2024 Address:[address] [place], [place] [phone] Subjective: * Chief Complaints: * 1 . Yearly fasting labs. * Medical History: Objective: * Vitals: Assessment: * Assessment: 1. 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 P ure hypercholesterolemia - E78.00 3 . V itamin D deficiency - E55.9 Plan: * Treatment: 2.?Pure hypercholesterolemia?LAB: Complete Blood Count Auto Diff (Collection Date & Time - 02/04/2024 07:15 AM) ?LAB: [facility] [place]. Panel Fast (Collection Date & Time - [...] Time - 02/04/2024 07:15 AM) ?LAB: Comprehensive [place]. Panel Fast (Collection Date & Time - [...] Pending * Provider: Yashira Gongora MD Date: Generated for Alfonzo christianson/Poncho/Yen on: 04/12/2024 02:48 PM EST
--- OUTSIDE RECORDS SUMMARY | 2024-02-11 03:30 | XMS_ITS ---
Author Organization Joshua Gongora MD Address [address] [place] [phone] Care Team Providers Care Taxi Servicer Name Role Phone Joshua Gongora Primary Care Provider Allergies Allergen (clinical drug ingredient) Drug/Non Drug [...] 3 days a week Active Clobetasol Prop Oint-Coleman Tar 0.05 & 2.3 % as directed [...] Location Date Provider Diagnosis Joshua Gongora MD [address] [place] [phone] 02/11/2024 Joshua Gongora Bowel habit changes R19.4 [...] - Z87.448) referral back to urology in [place] 02/11/2024 Pure hypercholesterolemia (ICD-10 - E78.00) stable, [...] hematuria referral back to [facility] in [place] Pure hypercholesterolemia stable, will felicia ontinue to monitor Vitamin D deficiency stable, will canelo rosas current regiment Colon cancer screening guaiac positive Depression screening negative screen Referrals Referral Date Details 02/11/2024 02/11/2024, bowel waddell bit changes , Jake Upton 02/11/2024 02/11/2024, history of hematuria , Teofilo Fletcher Next Appt Details Follow Up: 2 Months, Reason: Provider Name:Joshua Sainz ier, 02/17/2025 08:30:00 AM, [address] [place] [address], [address], [place], [place], [phone], Progress Notes * Kathy FREEMAN MDOB:1950 (73 yo F)Acc No.[id number]:02/11/2024 Patient: Kathy Agnlin Provider: Yashira Gongora MD :1950 A ge:73 Y S ex:Female Date:02/11/2024 Address:[address] [place] [address] Subjective: * Chief Complaints: * c omp [...] morning Orally 3 days a weekClobetasol Prop Oint-[place]man Tar 0.05 & 2.3 % Kit as [...] Orally 3 days a weekTaking Clobetasol Prop Oint-Coleman Tar 0.05 & 2.3 % Kit as [...] * Allergies: f ragrance in mycolog: iam sultana[Allergies Verified] Objective: * Vitals: H t: 62.00, Wt:115, BMI:21.03, BP:128/86. * P ast Orders: L ab:Comprehensive [place]. Panel Fast (Order Date - 02/04/2024) (Collection [...] guaiac positive. FEMALE GENITOURINARY: d one by needleworker. EXTREMITIES: n o clubbing, cyanosis, or edema. [...] hematuria Notes: referral back to urology in [place] Referral To:[facility]SANA ASENCIO [facility] Reason:history of hematuria [...] Gongora MD Date: 04/12/2023 Generated for Alfonzo christianson/Poncho/Yen on: 04/12/2024 02:46 PM EST History and Physical Notes * [...] had two or more falls in the st year?: No Communication Needs Communication Needs Does [...] stool guaiac positive FEMALE GENITOURINARY: done by needleworker ORAL CAVITY: mucosa moist Consultation Request Notes Referral Date Referring Provider Referred Provider Not es 02/11/2024 Joshua Gongora Bernard bowel habit changes 02/11/2024 Joshua Gongora Jonathan histdelroy ry of hematuria
--- OUTSIDE RECORDS SUMMARY | 2024-04-11 04:00 | XMS_ITS ---
Author Organization Joshua Gongora MD Address [address] [place] [phone] Care Team Providers Care Poultry Trimmer Name Role Phone Joshua Gongora Primary Care [...] Externally Twice a day Unknown Clobetasol Prop Oint-Adair Tar 0.05 & 2.3 % as directed [...] Problem Status W/U Status Risk Notes Problem [id number] Irritable bowel syndrome with diarrhea (K58.0) Active confirmed Vital Signs Blood pressure systolic 134 mm Hg 04/11/19 25 Blood pressure diastolic 76 mm Hg 025 Height 62.00 in 04/11/2024 Weight 119 lbs 04/11/2024 BMI 21.76 kg/m2 04/11/2024 weight is up 4 pounds since 02-11-24 Encounters Encounter Location Date Provider Diagnosis Joshua Gongora MD [address] [place] [address] [address] [place], [place] [phone] 04/11/2024 Joshua Gongora History of hematuria Z87.448 [...] results of the cat scan to her mycology teacher 04/11/2024 Irritable bowel syndrome with diarrhea (ICD-10 [...] results of the cat scan to her mycology teacher Irritable bowel syndrome with diarrhea g oing to see dr upton next week Next Appt Details Follow Up: 3 Months, Reason: Provider Name:Joshua Sainz ier, 02/17/2025 08:30:00 AM, [address] [place] [address], [address], [place], [place], [phone], Progress Notes * Kathy FREEMAN MDOB:1950 (73 yo F)Acc No.[id number]:04/11/2024 Patient: Kathy Anglin Provider: Yashira Gongora MD :1950 A ge:73 Y S ex:Female Date:04/11/2024 Address:[address] [place], [place] [phone] Subjective: * Chief Complaints: * 2 month/ [...] stic Procedure: * Medications: T akingClobetasol Prop Oint-Adair Tar 0.05 & 2.3 % Kit as [...] tablet Orally every other dayTaking Clobetasol Prop Oint-Adair Tar 0.05 & 2.3 % Kit as [...] results of the cat scan to her mycology teacher 3. I rritable bowel syndrome with diarrhea Notes: going to see dr upton next week * Procedure Codes: * Follow Up: 3 Months * * Sign off status: Completed true * Provider: Yashira Gongora MD Date: 0 04/11/2024 Generated for Carinai ng/Poncho/eTransmitting on: 1 04/12/2024 02:46 PM EST History and Physical [...]
--- OUTSIDE RECORDS SUMMARY | 2024-05-11 08:00 | XMS_ITS ---
Author Organization [facility] Address [address] [place] [phone] Care Team Providers Care Auditor In Charge Name Role Phone Rolan TEJADA, Joshua Primary Care Provider Julieta Zhou Jr, Jake Phipps [phone] REASON FOR VISIT change in bwl habits, heme positive stools Encounters Encounter Location Date Provider Diagnosis [facility] [place] Out[place] [address] [place] [phone] 05/11/2024 Jake Zhou Jr Colon polyps K63.5 and Change in bowel habits R19.4 Assessments Encounter Date Diagnosis (ICD Code) Assessment Notes Treatment Notes Treatment Clinical Notes Section Notes 05/11/2024 Colon polyps (ICD-10 - K63.5) 05/11/2024 Change in bowel habits (ICD-10 - R19.4) Plan Of Treatment No Information Progress Notes * JOHNNY FREEMAN MDOB:1950 (74 yo F)Acc No.[id number]:05/11/2024 COLON WITH MAC Patient: Kindra KOHLERJOHNNY Carias Provider: Ori Zhou MD :1950 A ge:73 Y S ex:Female Date:05/11/2024 Address:[address] [place] [address] Pcp:Joshua Gongora MD Subjective: * Chief Complaints: * 1 . Change in bwl habits, heme positive stools. * Medical History: Objective: * Vitals: Assessment: * Assessment: 1. C olon polyps - K63.5 (Primary) 2 . C hange in bowel habits - R19.4 Plan: * Treatment: * Procedure Codes: 4 5385 LESION REMOVAL COLONOSCOPY, [address] COLONOSCOPY AND BIOPSY, Modifiers: 59 , 0529F INTRVL 3+YRS PTS CLNSCP DOCD * * The named appointment provid er may or may not be the originator of this progress note, and it is not deemed complete until electronically signed by the appointment provider. Sign off status: Pending * Provider: Ori Zhou MD Date: 0 05/11/2024 Generated for Alfonzo christianson/Poncho/Chingitting on: 04/12/2024 02:46 PM EST
--- OUTSIDE RECORDS SUMMARY | 2024-07-11 02:30 | XMS_ITS ---
Author Organization Joshua Gongora MD Address [address] [place] [phone] Care Team Providers Care Windows Vmware Engineer Name Role Phone Joshua Gongora Primary Care Provider Results Component Value Reference Range Notes TSH reflex Free T4 Reviewed date:07/11/2024 12:41:15 PM Interpretation: Performing Lab:[facility], [address] [place] [phone] Notes/Report: TSH reflex Free T4 1.40 0.32-4.0 uIU/mL REASON FOR VISIT TSH REFLEX FREE T 4 Encounters Encounter Location Date Provider Diagnosis Joshua Gongora MD [address] [place] [phone] 07/11/2024 Joshua Gongora 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 History of hematuria Z87.448 Assessments Encounter Date Diagnosis (ICD Code) Assessment Notes Treatment Notes Treatment Clinical Notes Section Notes 07/11/2024 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 [...] MD Date: 0 07/11/2024 Generated for Alfonzo christianson/Poncho/Chingitting on: 04/12/2024 02:46 PM EST
--- OUTSIDE RECORDS SUMMARY | 2024-07-28 08:30 | XMS_ITS ---
Author Organization Joshua Gongora MD Address [address] [place] [phone] Care Team Providers Care Correspondence Review Clerk Name Role Phone Joshua Gongora Primary Care [...] Externally Twice a day Active Clobetasol Prop Oint-[place] Tar 0.05 & 2.3 % as directed Externally A ctive Problems Problem Type SNOMED Code ICD Code Onset Dates Problem Status W/U Status Risk Notes Problem Irritable bowel (32278998) Irritable bowel (K58.9) Active confirmed Vital Signs Blood pressure systolic 122 mm Hg 07/29/19 25 Blood pressure diastolic 80 mm Hg 025 Height 62.00 in 07/28/2024 Weight 116 lbs 07/28/2024 BMI 21.21 kg/m2 07/28/2024 weight is down 3 pounds [facility] 04-11-24 Encounters Encounter Location Date Provider Diagnosis Joshua Gongora MD [address] [place], [place] [phone] 07/28/2024 Joshua Gongora Ovarian cyst N83.209 and Irritable bowel K58.9 Assessments Encounter Date Diagnosis (ICD Code) Assessment Notes Treatment Notes Treatment Clinical Notes Section Notes 07/28/2024 Ovarian cyst (ICD-10 - N83.209) followed by Agronomy Internship 07/28/2024 Irritable bowel (ICD-10 - K58.9) patient verbalized understanding of medication and directions for use Plan Of Treatment Medication Medication Name Sig Start Date Stop Date Notes Hyoscyamine Sulfate ER 0.375 MG 1 tablet Orally once per day for 30 days 07/28/2024 Treatment Notes Assessment Notes Ovarian cyst followed by Agronomy Internship Irritable bowel patient verbalized u nderstanding of medication and directions for use Next Appt Details Follow Up: 4 Weeks, Reason: Provider Name:Joshua small, 02/17/2025 08:30:00 AM, [address], [address], [place], [place], [phone], Progress Notes * Kathy FREEMAN MDOB:1950 (73 yo F)Acc No.[id number]:07/28/2024 Progress Notes Patient: Kathy BLAS Provider: Yashira Gongora MD :1950 A ge:73 Y S ex:Female Date:07/28/2024 Address:[address] [place] [address], [facility] Subjective: * Chief Complaints: * 3 MO F/U * HPI: S ymptom(s): patient is a 73 yo female here for 3 month follow up visit/ doing well/ had us of ovarys at phys assistant and found multiple cysts and had a [...] stic Procedure: * Medications: T akingClobetasol Prop Oint-[place] Tar 0.05 & 2.3 % Kit as [...] Externally Twice a day Taking Clobetasol Prop Oint-[place] Tar 0.05 & 2.3 % Kit as [...] 2. O varian cyst Notes: followed by Agronomy Internship * Procedure Codes: * Follow Up: 4 Weeks * * Sign off status: Completed true * Provider: Yashira Gongora MD Date: 0 07/28/2024 Generated for Alfonzo christianson/Poncho/Chingitting on: 04/12/2024 02:47 PM EST History and Physical Notes * HPI (History of Present Illness) Category Sub-Category Detail Notes Category Not es Symptom(s) patient is a 73 yo female here for 3 month follow up visit/ doing well/ had us of ovarys at phys assistant and found multiple cysts and had a [...]
--- OUTSIDE RECORDS SUMMARY | 2024-08-05 08:27 | XMS_ITS ---
Author Organization Joshua Gongora MD Address [address] [place] [phone] Care Team Providers Care Joinery Patternmaker Name Role Phone Joshua Gongora Primary Care Provider Encounters Encounter Location Date Provider Diagnosis Joshua Gongora MD [address] [place] [phone] 08/05/2024 Joshua Gongora Plan Of Treatment Next Appt Details Provider Name:Joshua Sainz ier, 02/17/2025 08:30:00 AM, [address], [address], [place], [place], [phone], Progress Notes * Kathy FREEMAN MDOB:1950 (73 yo F)Acc No.[id number]:08/05/2024 Patient: Kindra EDITAAretha Kathy Moore :1950 A ge:73 Y S ex:Female Address:[address] [place] [id number] * true * Date: Generated for Alfonzo christianson/Poncho/Garlandsmitting on: 04/12/2024 02:47 PM EST
--- OUTSIDE RECORDS SUMMARY | 2024-08-26 05:15 | XMS_ITS ---
Author Organization Joshua Gongora MD Address [address] [place] [phone] Care Team Providers Care Gas Station Attendant Name Role Phone Joshua Gongora Primary Care Provider Allergies Allergen (clinical drug ingredient) Drug/Non Drug Allergy documented on EMR Reaction Allergy Type Onset Date Status Hair dye hair dye (uncoded) Unknown Allergy A ctive fragrance in mycolog (uncoded) blister Allergy Active Reason For Referral Reason Ovarian cyst eval and treat for a second opinion Diagnosis 1 Ovarian cyst (N83.20 9) Referral Organization Joshua Gongora MD Referring Provider First Name Joshua Referring Provider Last Name Rolan Referring Provider Speciality Internal M edicine Referred Provider [facility] DRIVER MESSENGER [employer], [facility] DRIVER MESSENGER [employer] Referred Provider Specialty OB - Gynecol ogy General Notes SurendraCelinaEleonora 0 08/26/2024 10:49:58 AM >send US info faxed phone [phone], Eleonora Agosto 09/09/2024 02:14:26 PM > was told to call back in 2 weeks after 09-19, Eleonora Agosto 09/29/2024 03:23:08 PM > info was refaxed on 09-26-24 was told to refax to [phone] they have a wait list until the end of the year, Eleonora Agosto 09/30/2024 02:02:48 PM >not using this referral, not able to get patient for an appt. referral marked addressed Referral Priority Routine REASON FOR VISIT 1 month Medications Medication SIG (Take, Route, Frequency, Duration) Notes Start Date End Date Status Levothyroxine Sodium 100 MCG 1 tablet on an empty stomach in the morning Orally 2 times per week for 90 days Active Vitamin D 2000 UNIT 1 tablet Orally ever y other day Active metroNIDAZOLE 0.75 % 1 application to affected area Externally Twice a day Active Levothyroxine Sodium 88 MCG 1 tablet on an empty stomach in the morning Orally 5 days a week for 90 days Active Ketoconazole 2 % 1 application Externally QOD Active Clobetasol Prop Oint-Stanislaus Tar 0.05 & 2.3 % as directed Externally A ctive LORazepam 0.5 MG 1 tablet as needed Orally every 12 hour for 7 days 10/12/2017 Not-Taking Hyoscyamine Sulfate ER 0.375 MG 1 tablet Orally once per day for 30 days 07/28/2024 Not-Taking Vital Signs Blood pressure systolic 122 mm Hg 08/27/19 25 Blood pressure diastolic 70 mm Hg 025 Height 62.00 in 08/26/2024 Weight 116 lbs 08/26/2024 BMI 21.21 kg/m2 08/26/2024 Encounters Encounter Location Date Provider Diagnosis Joshua Gongora MD [address] [place] [address] [address] [place], [place] [phone] 08/26/2024 Joshua Gongora Ovarian cyst N83.209 and Irritable bowel syndrome with diarrhea K58.0 Assessments Encounter Date Diagnosis (ICD Code) Assessment Notes Treatment Notes Treatment Clinical Notes Section Notes 08/26/2024 Ovarian cyst (ICD-10 - N83.209) is going to wait and repeat us in 3 months. going for a second opinion 08/26/2024 Irritable bowel syndrome with diarrhea (ICD-10 - K58.0) patient has not started meds yet. have explained the way to use them. if she has symptoms to take for a few days and then stop to see how she is doing 08/26/2024 Other is going Plan Of Treatment Treatment Notes Assessment Notes Ovarian cyst is going to wait and repeat us in 3 months. going for a second opinion Irritable bowel syndrome with diarrhea kindra dawson has not started meds yet. have explained the way to use them. if she has symptoms to take for a few days and then stop to see how she is doing Other is going Referrals Referral Date Details 08/26/2024 08/26/2024, Ovarian cyst eval and treat for a second opinion, [facility] DRIVER MESSENGER Group [facility] DRIVER MESSENGER Group [facility] Next Appt Details Provider Name:Joshuakaushal Sainz ier, 02/17/2025 08:30:00 AM, [address] [place] [address], [address], [place], [place], [phone], Progress Notes * Kathy FREEMAN MDOB:1950 (73 yo F)Acc No.[id number]:08/26/2024 Progress Notes Patient: Kindra DOOLEY Kathy M Provider: Yashira Gongora MD :1950 A ge:73 Y S ex:Female Date:08/26/2024 Address:[address] [place] [address] [facility] [id number] Subjective: * Chief Complaints: * 1 month * HPI: S ymptom(s): patient is a 73 yo female her for one month follow up visit finally got the ibs meds. never tried. * ROS: G eneral/Constitutional: Denies C hills. D enies F atigue. D enies F ever. D enies H eadache. E NT: Denies S ore throat. E ndocrine: Denies C old intolerance. D enies H eat intolerance. R espiratory: Denies C ough. D enies S hortness of breath at rest. D enies S hortness of breath with exertion. G astrointestinal: Denies D iarrhea. D enies N ausea. * Medical History: * Surgical History: * Hospitalization/Major Diagno stic Procedure: * Medications: T akingClobetasol Prop Oint-Stanislaus Tar 0.05 & 2.3 % Kit as [...] Externally Twice a day Taking Clobetasol Prop Oint-[place]isl[place] Tar 0.05 & 2.3 % Kit as [...] to affected area Externally Twice a day Not-Taking/PRNHyoscyamine Sulfate ER 0.375 MG Tablet Extended Release 12 Hour 1 tablet Orally once per day LORazepam 0.5 MG Tablet 1 tablet as needed Orally every 12 hour Medication List reviewed and reconciled with the patientNot-Taking/PRN Hyoscyamine Sulfate ER 0.375 MG Tablet Extended Release 12 Hour 1 tablet Orally once per day Not-Taking/PRN LORazepam 0.5 MG Tablet 1 tablet as needed Orally every 12 hour Medication List reviewed and reconciled with the patient * Allergies: f ragrance in mycolog: iam sultana[Allergies Verified] Objective: * Vitals: H t: 62.00, Wt: 116, BMI:21.21, BP:122/70, Wt-k.62. * Examination: G eneral Examination: GENERAL APPEARANCE: a lert, well hydrated, in no distress.? Assessment: * Assessment: 1. O varian cyst - N83.209 (Primary) 2 . I rritable bowel syndrome with diarrhea - K58.0 Plan: * Treatment: 2. I rritable bowel syndrome with diarrhea Notes: patient has not started meds yet. have explained the way to use them. if she has symptoms to take for a few days and then stop to see how she is doing 3. O thers Notes: is going * Procedure Codes: * * Sign off status: Completed true * Provider: Yashira Gongora MD Date: 0 08/26/2024 Generated for Alfonzo christianson/Poncho/eTransmitting on: 1 04/12/2024 02:46 PM EST History and Physical Notes * HPI (History of Present Illness) Category Sub-Category Detail Notes Category Not es Symptom(s) patient is a 73 yo female her for one month follow up visit finally got the ibs meds. never tried. Examination Category Sub-Category Detail Notes Category Not es General Examination GENERAL APPEARANCE: alert, w ell hydrated, in no distress Consultation Request Notes Referral Date Referring Provider Referred Provider Not es 08/26/2024 Joshua Gongora [facility] DRIVER MESS[employer], [facility] DRIVER MESSENGER Group [facility] Ovarian cyst eval and treat for a second opinion
--- OUTSIDE RECORDS SUMMARY | 2025-02-10 02:00 | XMS_ITS ---
Author Organization Joshua Gongora MD Address [address] [place] [phone] Care Team Providers Care Forensic Nurse Name Role Phone Joshua Gongora Primary Care Provider [phone] Results Component Value Reference Range Notes Complete Blood Count Auto Di ff (Not yet reviewed by provider) Interpretation: Performing Lab:[facility], [address] [place] [phone] Notes/Report: White Blood Count 6.9 4.8-10.8 X10*3/uL Red Blood Count 4.41 4.20-5.50 X10*6/uL Hemoglobin 13.0 12.0-16.0 g/dl Hematocrit 40.4 37.0-47.0 % Mean Corpuscular Volume 91.6 80.0-98.0 fL Mean Corpuscular Hemoglobin 29.5 27.0-33.0 pg Mean Corpuscular HGB Conc 32.2 31.0-35.0 g/dl Red Cell Distribution Width 13.7 11.0-16.0 % Platelet Count 222 160-400 X10*3/uL Mean Platelet Volume 11.0 9.4-12.3 fL Neutrophils Percent Auto 40.1 45-73 % Imm Gran Pct Auto 0.3 0.0-0.4 % Lymphocytes Percent Auto 43.7 20-40 % Monocytes Percent Auto 9.3 2-11 % Eosinophils Percent Auto 5.4 0-4 % Basophils Percent Auto 1.2 0-2 % NRBC Pct Auto 0.0 0.0-0.2 /100WBC Neutrophils Absolute Auto 2.8 2.0-8.3 x10*3/u L Imm Gran Abs Auto 0.02 0.00-0.03 X10*3/uL Lymphocytes Absolute Auto 3.0 1.2-4.9 X10*3/u L Monocytes Absolute Auto 0.6 0.1-1.2 X10*3/uL Eosinophils Absolute Auto 0.4 0.0-0.4 X10*3/u L Basophils Absolute Auto 0.1 0.0-0.2 X10*3/uL NRBC Abs Auto 0.000 0.0-0.012 X10*3/uL Comprehensive [place]. Panel Fa st (Not yet reviewed by provider) Interpretation: Performing Lab:[facility], [address] [place] [phone] Notes/Report: Sodium 140 135-145 mmol/L Potassium 3.6 3.3-5.1 mmol/L Chloride 105 96-108 mmol/L Carbon Dioxide 27 22-29 mmol/L Anion Gap 12 12-20 Blood Urea Nitrogen 12 9-16 mg/dL Creatinine 0.52 0.5-1.4 mg/dL Estimated Glomerular Filt Rate > 60 Chronic Kidney Disease: Estimated GFR < 60 mL/min/1.73m2 Severe Kidney Disease: Estimated GFR < 15 mL/min/1.73m2 Glucose Fasting 77 60-99 mg/dL Calcium 9.0 8.4-10.2 mg/dL Bilirubin Total 0.4 0.0-1.0 mg/dL Aspartate Amino Transferase 26 5-31 U/L Alanine Aminotransferase 19 0-31 U/L Total Protein 6.4 6.5-8.0 g/dL Albumin Level 3.9 3.5-5.0 g/dL Alkaline Phosphatase 65 39-117 U/L Vitamin D 25-OH Total (Not y et reviewed by provider) Interpretation: Performing Lab:[address] [phone] Notes/Report: Vitamin D 25-OH Total 96.2 >30 ng/mL Health Based Reference Values* < 20 ng/mL Deficient 20-30 ng/mL Insufficient > 30 ng/mL Sufficient *Tara HOLLAND. N Engl J Med. 2007;357:266-280 There is no well-established upper level of normal vitamin D levels. Some laboratories use 50 ng/mL as an upper limit of normal. However, toxicity is patient-dependent and may occur at any level. Careful correlation with the patient's presentation is necessary and, if there is concern for vitamin D toxicity, treatment should be considered irrespective of the serum level. Care must be taken in interpreting Vitamin [...] confirmed with another method such as LC-MS/MS. UA ClnCatch+Micro w/rflx Cul t (Not yet reviewed by provider) Interpretation: Performing Lab:[address] [phone] Notes/Report: Urine, Clean Catch Color Urine Yellow Appearance Urine Clear PH 7.0 5.0-9.0 Glucose Urine UA Negative Negative mg/dL Urine Blood Trace Negative Specific [place] - Urine <= 1.005 1.005-1.025 Urine Protein Negative Neg-Trace mg/dL Urine Ketones Negative Negative mg/dL Nitrite Urine Negative Negative Leukocyte Esterase Urine Negative Negative RBC Urine 0-2 0-2 /HPF WBC Urine 0-5 0-5 /HPF Squamous Epithelial Cell Urine 0-2 0-2 /HPF Bacteria Urine None Seen None Seen Hyaline Casts Urine 0-2 0-2 /LPF Lipid Panel Reviewed date:02/10/2025 02:09:38 PM Interpretation: Performing Lab:[facility], [address] [place] [phone] Notes/Report: Triglycerides 87 <150 mg/dL Desirable Triglyceride: less than 150 mg/dL Borderline High Triglyceride 150-199 mg/dL High Triglyceride: 200-499 mg/dL Very High Triglyceride: greater than or equal to 5OO mg/dL Cholesterol 245 <200 mg/dL Desirable Cholesterol: less than 200 mg/dL Borderline High Cholesterol: 200-239 mg/dL High Cholesterol: greater than 239 mg/dL LDL Cholesterol Calculated 138 <100 mg/dL Desirable LDL: less than 100 mg/dL Near Optimal/Above Optimal LDL: 110-129 mg/dL Borderline High LDL: 130-159 mg/dL High LDL: 160-189 mg/dL Very High LDL: greater than or equal to 190 mg/dL HDL Cholesterol 90 >40 mg/dL Desirable HDL: greater than 40 mg/dL Note: This HDL assay may give artificially low results in patients with liver disease. 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 Panel Fast Vitamin D 25-OH Total 02/10/2025 UA ClnCatch+Micro w/rflx Cult 02/10/2025 Next Appt Details Provider Name:Joshua Sainz ier, 02/17/2025 08:30:00 AM, [address], [address], [place], [place], [phone], Progress Notes * Kathy FREEMAN MDOB:1950 (74 yo F)Acc No.[id number]:02/10/2025 Progress Note Patient: Kathy BLAS Provider: Yashira Gongora MD :1950 A ge:74 Y S ex:Female Date:02/10/2025 Address:[address] [place] [phone] Subjective: * Chief Complaints: * 1 . Yearly fasting labs. * Medical History: Objective: * Vitals: Assessment: * Assessment: 1. E ncounter for administration of vaccine - Z23 (Primary) 2 . 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 P ure hypercholesterolemia - E78.00 4 .?Vitamin D deficiency - E55.9 Plan: * Treatment: 2. P ure hypercholesterolemia L AB: Complete Blood Count Auto Diff (Collection Date & Time - 02/10/2025 07:00 AM) L AB: Comprehensive [place]. Panel Fast (Collection Date & Time - 02/10/2025 07:00 AM) L AB: Vitamin D 25-OH Total (Collection Date & Time - 02/10/2025 07:00 AM) L AB: UA ClnCatch+Micro w/rflx Cult (Collection Date & Time - 02/10/2025 07:00 AM) L AB: Lipid Panel (Collection Date & Time - 02/10/2025 07:00 AM) 3. V itamin D deficiency L AB: Complete Blood Count Auto Diff (Collection Date & Time - 02/10/2025 07:00 AM) L AB: Comprehensive [place]. Panel Fast (Collection Date & Time - 02/10/2025 07:00 AM) L AB: Vitamin D 25-OH Total (Collection Date & Time - 02/10/2025 07:00 AM) L AB: UA ClnCatch+Micro w/rflx Cult (Collection Date & Time - 02/10/2025 07:00 AM) L AB: Lipid Panel (Collection Date & Time - 02/10/2025 07:00 AM) * Immunizations: Influenza High Dose : 0.5 mL (Dose No:1) (Route: Intramuscular) given by Bev Harris , Office Staff on Left Deltoid * Procedure Codes: 3 6415 VENIPUNCT, ROUTINE*, 05227 FLU VACC PRSV FREE INC ANTIG, G0008 ADMN FLU VAC NO FEE SCHED SAME DAY * * The named appointment provid er may or may not be the originator of this progress note, and it is not deemed complete until electronically signed by the appointment provider. Sign off status: Pending * Provider: Yashira Gongora MD Date: 04/12/2024 Generated for Alfonzo christianson/Poncho/Chingitting on: 04/12/2024 02:47 PM EST
[2025-02-10 12:54] LABS: MANUAL DIFF FLAG NO
[2025-02-10 13:15] LABS: Hematocrit 40.4 % (37.0-47.0); Hemoglobin 13.0 g/dl (12.0-16.0); Imm Gran Abs Auto 0.02 X10*3/uL (0.00-0.03); Imm Gran Pct Auto 0.3 % (0.0-0.4); Lymphocytes Absolute Auto 3.0 X10*3/uL (1.2-4.9); Mean Corpuscular HGB Conc 32.2 g/dl (31.0-35.0); Mean Corpuscular Hemoglobin 29.5 pg (27.0-33.0); Mean Corpuscular Volume 91.6 fL (80.0-98.0); NRBC Abs Auto 0.000 X10*3/uL (0.0-0.012); NRBC Pct Auto 0.0 /100WBC (0.0-0.2); Platelet Count 222 X10*3/uL (160-400); Red Blood Count 4.41 X10*6/uL (4.20-5.50); White Blood Count 6.9 X10*3/uL (4.8-10.8)
[2025-02-10 13:17] LABS: Appearance Urine Clear; Glucose Urine UA Negative (Negative); PH 7.0 (5.0-9.0); Specific Gravity - Urine <= 1.005 (1.005-1.025); UMIC TRIGGER UACC YES
[2025-02-10 13:42] LABS: Alanine Aminotransferase 19 U/L (0-31); Albumin Level 3.9 g/dL (3.5-5.0); Alkaline Phosphatase 65 U/L (39-117); Anion Gap 12 (12-20); Aspartate Amino Transferase 26 U/L (5-31); Blood Urea Nitrogen 12 mg/dL (9-16); Calcium 9.0 mg/dL (8.4-10.2); Carbon Dioxide 27 mmol/L (22-29); Chloride 105 mmol/L (96-108); Cholesterol 245 mg/dL (<200); Estimated Glomerular Filt Rate > 60; HDL Cholesterol 90 mg/dL (>40); Potassium 3.6 mmol/L (3.3-5.1); Sodium 140 mmol/L (135-145); Total Protein 6.4 g/dL (6.5-8.0); Triglycerides 87 mg/dL (<150)
--- OUTSIDE RECORDS SUMMARY | 2025-02-10 14:46 | XMS_ITS | Encounter Summary ---
Author Organization [facility] Address [address] [place] [phone] Phone Care Team Providers Care Meeting/Event Planner Name Role Phone Joshua Gongora MD Primary Care Provider Encounter Details Date Type Department Care Team (Late st Contact Info) Description 06/09/2019 Ancillary Orders Virtual Department [address] [place] [address] Joshua Gongora MD [address] [place] [address] [place] [address] Osteopenia, unspecified location; Osteopenia of left hip; [...] of osteopenia and representing a 4% decline [id number] Total bone mineral density in the L2-L4 vertebral bodies was calculated at0.897 gm/cm2 with a T-score of -1.7 and Z-score of 0.4, falling within theWHO classification of osteopenia, without significant interval change [id number]. Total bone mineral density in the right hip was calculated at 0.669 gm/co2wgug a T-score of -2.2 and Z-score of [...] location documented in this encounter Care Teams Meeting/Event Planner Relationship Specialty Start Date End Date Joshua Gongora MD [address] [place] [address] [place] [address] PCP - General 04/09/17 documented as of this encounter Additional Source Comments The information contained in this document represents components of the legal health record. It is not the complete legal health record.[facility]
--- OUTSIDE RECORDS SUMMARY | 2025-02-10 14:46 | XMS_ITS | Encounter Summary ---
Author Organization [facility] Address [address] [place] [phone] Phone Care Team Providers Care Bank Vault Clerk Name Role Phone Joshua Gongora MD Primary Care Provider Encounter Details Date Type Department Care Team (Late st Contact Info) Description 06/08/2019 Ancillary Orders Virtual Department [address] [place] [address] Joshua Gongora MD [address] [place] [address] [place] [address] Osteopenia, unspecified location Social History Tobacco Use [...] location documented in this encounter Care Teams Bank Vault Clerk Relationship Specialty Start Date End Date Joshua Gongora MD [address] [place] [address] [place] [address] PCP - General 04/09/17 documented as of this encounter Additional Source Comments The information contained in this document represents components of the legal health record. It is not the complete legal health record.[facility]
--- OUTSIDE RECORDS SUMMARY | 2025-02-10 14:46 | XMS_ITS | Clinical Summary ---
Author Organization [facility] Address [address] [place] [address] Phone Care Team Providers Care Orthotics Prosthetics Assistant Name Role Phone Joshua Gongora MD Primary [...] her the option for second opinion with pricing strategist oncologist; with knowledge that these referrals generally [...] Visit [facility] [address] [place] [address] Susan Merchant MD Right ovarian cyst (Primary Dx) 11/16/2024 9:19 AM EDT - 11/16/2024 11:59 PM EDT Hospital Encounter [facility] [address] [place] [address] Susan Merchant MD Discharge Disposition: Home or Self Care 11/16/2024 Telephone [facility] [address] [place] [address] Susan Merchant MD from Last 3 Months [...] of osteopenia and representing a 4% decline [id number] Total bone mineral density in the L2-L4 vertebral bodies was calculated at0.897 gm/cm2 with a T-score of -1.7 and Z-score of 0.4, falling within theWHO classification of osteopenia, without significant interval change [id number]. Total bone mineral density in the right hip was calculated at 0.669 gm/fq7rivf a T-score of -2.2 and Z-score of [...] Maintenance Insurance MEDICARE PART A & B [facility] MEDICARE SUPPLEMENT MEDICARE PART A & B [employer] MED[employer]ARE SUPPLEMENT MEDICARE PART A & B Member Subscriber Plan / Payer ( fective 2016-Present) Name:Kathy Su Member ID:[id number] Relation to Subscriber:Self Name:Kathy Su Subscriber ID:[id number] Payer ID:[id number] Group ID:Not on file Type:Medicare Address: [employer] [address] [place] [phone] [place] [address] [employer] MEDICARE SUPPLEMENT MEDICARE PART A & B [employer] MEDICARE SUPPLEMENT MEDICARE PART A & B [facility] [employer] MEDICARE SUPPLEMENT MEDICARE PART A & B [facility] EX[employer]ION MEDICARE SUPPLEMENT MEDICARE PART A & B [employer] MED[employer]ARE SUPPLEMENT MEDICARE PART A & [place] [phone] MEDICARE PART A & B [facility] [employer] MEDICARE SUPPLEMENT Care Teams Orthotics Prosthetics Assistant Relationship Specialty Start Date End Date Joshua Gongora MD [address] [place] [address] [place] [address] PCP - General 04/09/17 Additional Source Comments The information contained in this document represents components of the legal health record. It is not the complete legal health record.[facility]
--- OUTSIDE RECORDS SUMMARY | 2025-02-10 14:46 | XMS_ITS | Patient Health Record ---
Author Organization [facility] Address [address] [place] [address] Care Team Providers Care Attorney Recruiter Name Role Phone Joshua Gongora MD Primary Care Provider Bereket Ibarra Unavailable [phone] Allergies Allergen (clinical drug ingredient) Drug/Non Drug Allergy documented on EMR Reaction Allergy Type Onset Date Status Mycolog creme, hair dye (uncoded) Unknown Allergy Active Adhesive Tape Unknown Drug Allergy Act alix Reason For Referral No Information Medications Medication SIG (Take, Route, Frequency, Duration) Notes Start Date End Date Status Clobetasol Prop Oint-Hanson Tar Active Levothyroxine Sodium Active metroNIDAZOLE Not-Bon colon Social History Tobacco use other than smoking: Question Answer Notes Are you an other tobacco user? No Problems Problem Type SNOMED Code ICD Code Onset Dates Problem Status W/U Status Risk Notes Problem Acquired hallux valgus (07530470) Hallux valgus (acquired), left foot (M20.12) Active confirmed Problem Acquired hallux valgus (22243899) Hallux valgus (acquired), right foot (M20.11) Active confirmed Plan Of Treatment Pending Test Test Name Order Date X ray : Foot, left 2V 10/04/2014 X ray : Foot, right 2V 10/04/2014 Insurance Providers Payer Name Payer Address Payer Phone Subscriber Number Group Number Insured Name Patient Relationship to Insured Coverage Start Date Coverage End Date [employer] ([facility]) [address] [place] [address] [id number] Kathy Su Self - patient is the insured Medical (General) History Medical History History ICD Code Back,Hip,and Knee pain Headaches Hiatal hernia Thyroid disorder Chicken pox Measles
--- OUTSIDE RECORDS SUMMARY | 2025-02-10 14:47 | XMS_ITS | Encounter Summary ---
Author Organization [facility] Address [address] [place] [address] Phone Care Team Providers Care Tool Adjuster Name Role Phone Joshua Gongora MD Primary Care Provider Encounter Details Date Type Department Care Team (Late st Contact Info) Description 10/12/2017 Ancillary Orders Virtual Department [address] [place] [address] Joshua Gongora MD [address] [place] [address] [place] [address] Osteopenia, unspecified location Social History Tobacco Use [...] the right hip was calculated at 0.723 gm/ky5zepr a T-score of -1.8 falling within the WHO classification ofosteopenia. Z-score of - 0.5. 0.2% loss of bone mineral density since thebaseline exam and 0.3% loss since the previous exam, both of which are notstatistically significant. Total bone mineral density in the left hip was calculated at 0.713 gm/ck4ygbz a T-score of -1.9 falling within the [...] location documented in this encounter Care Teams Tool Adjuster Relationship Specialty Start Date End Date Joshua Gongora MD [address] [place] [address] [place] [address] PCP - General 04/09/17 documented as of this encounter Additional Source Comments The information contained in this document represents components of the legal health record. It is not the complete legal health record.[facility]
--- OUTSIDE RECORDS SUMMARY | 2025-02-10 14:47 | XMS_ITS | Patient Health Record ---
Author Organization [facility] Address [address] [place] [address] Care Team Providers Care Finish Opener Name Role Phone Rolan TEJADA, Joshua Primary Care Provider Julieta Zhou Jr, Jake Unavailable Allergies Allergen (clinical drug ingredient) Drug/Non Drug Allergy documented on EMR Reaction Allergy Type Onset Date Status mycolog cream (uncoded) Unknown Allergy Active Hair dye hair dye (uncoded) Unknown Allergy A ctive Results Component Value Reference Range Notes Transglutaminase IgA Reviewed date:04/20/2024 08:53:59 AM Interpretation: Performing Lab:[address] [phone] Notes/Report: Transglutaminase IgA <1.0 Value Interpretation ----- <15.0 Antibody not detected > or = 15.0 Antibody detected THIS TEST WAS PERFORMED AT: [facility] [address] [place] [phone] DIANA CABRERA MD Immunoglobulin A Reviewed date:04/20/2024 08:53:51 AM Interpretation: Performing Lab:[facility], [address] [place] [phone] Notes/Report: Immunoglobulin A 311 70-320 mg/dL THIS TEST WAS PERFORMED AT: [facility] [address] [place] [phone] DIANA CABRERA MD Pathology Reviewed date:05/12/2024 01:26:53 PM Interpretation: Performing Lab:[facility], [address] [place] [phone] Notes/Report: Reason For Referral No Information Medications [...] Active metroNIDAZOLE 0.75 % APPLY TWICE DAILY External; Duration: 30 Active Ketoconazole 2 % APPLY TO THE AFFECTE D AREA EVERY DAY External; Duration: 15 Active MiraLax (colon prep) 17 GM/SCOOP mixed with Gatorade or Crystal Light Orally begin at 5:00 p.m. the day before the procedure; Duration: 1 day 04/18/2024 Active Immunizations Vaccine Route Administration Date Status Comme nts Influenza Unknown 12/29/2023 Administered Problems Problem Type SNOMED Code ICD Code Onset Dates Problem Status W/U Status Risk Notes Problem Change in bowel habit (19288402) Change in bowel habits (R19.4) Active confirmed Problem Abnormal feces (213863427) Heme positive stool (R19.5) Active confirmed Vital Signs Temperature 97.8 degrees Fahrenheit 04/18/2024 Blood pressure diastolic 00 mm Hg 04/18/2024 Height 64 in 04/18/2024 Blood pressure systolic 000 mm Hg 04/18/2024 Weight 119 lb 4 oz lbs 04/18/2024 BMI 20.47 kg/m2 04/18/2024 Encounters Encounter Location Date Provider Diagnosis [facility] [address] [place] [id number] 05/11/2024 Jake Zhou Jr Colon polyps K63.5 and Change in bowel habits R19.4 [facility] [address] [place] [phone] 04/18/2024 Jake Zhou Jr Change in bowel habits R19.4 and Heme positive stool R19.5 [facility] [address] [place] [phone] 04/20/2024 Jake Zhou Jr [facility] [address] [place] [phone] 05/12/2024 Jake Zhou Jr Assessments Encounter Date [...] End Date MEDICARE OF [place] [address] [place] [address] [id number] JOHNNY FREEMAN Self - patient is the insured [employer] ([employer]) [address] [place] [address] [id number] JOHNNY FREEMAN Self - patient is the insured Medical (General) History Medical History History ICD Code Colonoscopy 04/21, normal, and internal h emorrhoids, ten-year followup syncope anxiety hyperthyroidism headaches ovarian cyst Surgical History Surgery Date(Month/Year) tonsillectomy
--- OUTSIDE RECORDS SUMMARY | 2025-02-10 14:48 | XMS_ITS | Patient Health Record ---
Author Organization Joshua Gongora MD Address [address] [place], [place] [address] Care Team Providers Care Special Education Curriculum Specialist Name Role Phone Joshua Gongora Primary Care Provider [phone] Allergies Allergen (clinical drug ingredient) Drug/Non Drug Allergy documented on EMR Reaction Allergy Type Onset Date Status Hair dye hair dye (uncoded) Unknown Allergy A ctive fragrance in mycolog (uncoded) blister Allergy Active Results Component Value Reference Range Notes TSH reflex Free T4 Reviewed date:07/11/2024 12:41:15 PM Interpretation: Performing Lab:[facility], [address] [place] [phone] Notes/Report: TSH reflex Free T4 1.40 0.32-4.0 uIU/mL Complete Blood Count Auto Di ff (Not yet reviewed by provider) Interpretation: Performing Lab:[facility], [address] [place] [phone] Notes/Report: White Blood Count 6.9 4.8-10.8 X10*3/uL [...] NRBC Abs Auto 0.000 0.0-0.012 X10*3/uL Comprehensive [place]. Panel Fa st (Not yet reviewed by provider) Interpretation: Performing Lab:[facility], [address] [place] [phone] Notes/Report: Sodium 140 135-145 mmol/L Potassium 3.6 [...] y et reviewed by provider) Interpretation: Performing Lab:[address] [phone] Notes/Report: Vitamin D 25-OH Total 96.2 >30 [...] (Not yet reviewed by provider) Interpretation: Performing Lab:[address] [phone] Notes/Report: Urine, Clean Catch Color Urine Yellow Appearance Urine Clear PH 7.0 5.0-9.0 Glucose Urine UA Negative Negative mg/dL Urine Blood Trace Negative Specific [place] - Urine <= 1.005 1.005-1.025 Urine Protein Negative Neg-Trace mg/dL Urine Ketones Negative Negative mg/dL Nitrite Urine Negative Negative Leukocyte Esterase Urine Negative Negative RBC Urine 0-2 0-2 /HPF WBC Urine 0-5 0-5 /HPF Squamous Epithelial Cell Urine 0-2 0-2 /HPF Bacteria Urine None Seen None Seen Hyaline Casts Urine 0-2 0-2 /LPF Lipid Panel Reviewed date:02/10/2025 02:09:38 PM Interpretation: Performing Lab:[facility], [address] [place] [phone] Notes/Report: Triglycerides 87 <150 mg/dL Desirable Triglyceride: [...] low results in patients with liver disease. Occult Blood, Stool, Guaiac Reviewed date:02/22/2024 03:13:03 PM Interpretation:Positive Performing Lab: Notes/Report: Positive Occult Blood, Stool, Guaiac pos Pathology Reviewed date:05/12/2024 02:45:10 PM Interpretation: Performing Lab:[facility], [address] [place] [phone] Notes/Report: - -------- Name: Sherlyn Su Age/Sex: 73/F : 1950 [facility]#: [id number] Unit#: [id number] Attend Dr: Jake Upton MD Re05/11/24 Status : [facility] Location: [facility] Disch: - -------- SPEC : [id number] RECD: 05/11/24-1406 STATUS: MARY DUNCAN NUM: [id number] LON: 05/11/24-[address] [facility] [address]: Jake Upton MD ENTERED: 05/11/24-1417 SP [...] submitted in toto in a cassette labeled Orin NAIDU CONTINUED ON NEXT PAGE - -------- Name: Sherlyn Su Age/Sex: 73/F : 1950 Unit#: [id number] Attend Dr: Jake Upton MD Re05/11/24 Status : [facility] Location: [facility] Disch: - -------- SPEC : [id number] RECD: 05/11/24-1406 STATUS: MARY PERLA NUM: [id number] LON: 05/11/24-[address]: Jake Upton MD ENTERED: 05/11/24-2822 SP TYPE: Surgical OTHR DR: Joshua Gongora MD ORDERED: HE Stain/9, Gross Micro L4/3 Copies To: Joshua Gongora MD [facility] [address] [place] [address] Jake Upton MD [facility] [address] [place], [place] [phone] - -------- Signed (signature on file) Magdalena Kianna 05/12/24 1305 - -------- END OF REPORT Anitha Betancourt Reviewed date:07/11/2024 12:47:40 PM Interpretation: Performing Lab:[facility], [address] [place] [phone] Notes/Report: Anitha Betancourt See Note Specimen held untested for 24 hours; Call to request Chemistry testing. Anitha Betancourt Reviewed date:02/10/2025 02:06:35 PM Interpretation: Performing Lab:[facility], [address] [place] [phone] Notes/Report: Anitha Betancourt See Note Specimen held [...] Referring Provider Speciality Internal edicine Referred Provider [facility] [employer], [facility] [employer] Referred Provider Specialty OB - Gynecol ogy General Notes Eleonora Agosto 0 08/26/2024 10:49:58 AM >send US info faxed phone [phone], Eleonora Agosto 09/09/2024 02:14:26 PM > was told to call back in 2 weeks after 09-19, Eleonora Agosto 09/29/2024 03:23:08 PM > info was refaxed on 09-26-24 was told to refax to [phone] they have a wait list until the end of the year, Eleonora Agosto 09/30/2024 02:02:48 PM >not using this referral, not able to get patient for an appt. referral marked addressed Referral Priority Routine Reason Ovarian cyst secon d opinion Diagnosis 1 Ovarian cyst (N83.20 9) Referral Organization Joshua Gongora MD Referring Provider First Name Joshua Referring Provider Last Name Rolan Referring Provider [facility] Referred Provider ROSENDO MENDOZA Referred Provider Specialty OB - Gynecol ogy General Notes Eleonora Agosto 0 09/30/2024 02:07:15 PM >referral info faxed with US report x2 , Pretty Mcdaniel 10/13/2024 02:04:16 PM >sherlyn was given the number of dr bates office and she is going to call them, Eleonora Agosto 10/14/2024 08:43:54 AM >called office was told provider needs to review her info Will call back next week, Pretty Mcdaniel 10/14/2024 08:59:53 AM SHERLYN CALLED THE OFFICE [...] 1 application Externally QOD Active Clobetasol Prop Oint-Crosby Tar 0.05 & 2.3 % as directed [...] High Dose IM Intramuscular 01/26/2023 Administer ed Influenza High Dose IM Intramuscular 02/10/2025 Administer ed Tetanus Unknown 01/17/2014 Pending Social [...] Problem Status W/U Status Risk Notes Problem 697757336 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 confirmed Problem 902921183 Thyroid nodule (E04.1) Active confirm ed Problem 109915904 Irritable bowel syndrome with diarrhea (K58.0) Active confirmed Problem 645809541 Reflux esophagit is (K21.00) Active confirmed Problem 60548071 Vitamin D defici ency (E55.9) Active confirmed Problem 529431025 Osteopenia (M85.80) Active confirmed Problem 073996188 History of hemat uria (Z87.448) Active confirmed Problem 52262044 Current smoker (F17.200) Active confirmed Problem 913981036 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 Problem 784335922 History of compr ession fracture of spine (Z87.81) Active confirmed Problem 63174425 Sciatica of righ t side (M54.31) Active confirmed Problem 785811412 Pure hypercholesterolemia (E78.00) Active confirmed Problem 391068922 Sacroiliac pain (M53.3) Active confir med Problem 30824045 KASANDRA (obstructive sleep apnea) (G47.33) Active confirmed Problem Irritable bowel (80827087) Irritable bowel (K58.9) Active confirmed Problem 49229393 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 Problem 50983553 Meralgia paresth etica of right side (G57.11) Active confirmed Vital Signs Blood pressure diastolic 70 mm Hg 08/26/2024 Height 62.00 in 08/26/2024 Blood pressure systolic 122 mm Hg 08/26/2024 Weight 116 lbs 08/26/2024 BMI 21.21 kg/m2 08/26/2024 Encounters Encounter Location Date Provider Diagnosis Joshua Gongora MD [address] [place] [id number] 07/11/2024 Joshua Gongora 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 History of hematuria Z87.448 Joshua Gongora MD [address] [id number] 02/10/2025 Joshua Gongora 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 ; Encounter for administration of vaccine Z23 ; Pure hypercholesterolemia E78.00 and Vitamin D deficiency E55.9 Joshua Gongora MD [address] [place] [id number] 02/11/2024 Joshua Gongora Bowel habit changes R19.4 ; Iodine hypothyroidism E01.8 ; History of hematuria Z87.448 ; Pure hypercholesterolemia E78.00 ; Vitamin D deficiency E55.9 ; Colon cancer screening Z12.11 and Depression screening Z13.31 Joshua Gongora MD [address] [place] [id number] 04/11/2024 Joshua Gongora History of hematuria Z87.448 ; Cyst of ovary, unspecified laterality N83.209 ; Irritable bowel syndrome with diarrhea K58.0 and Iodine hypothyroidism E01.8 Joshua Gongora MD [address] [place] [id number] 07/28/2024 Joshua Gongora Ovarian cyst N83.209 and Irritable bowel K58.9 Joshua Gongora MD [address] [place] [id number] 08/26/2024 Joshua Gongora Ovarian cyst N83.209 and Irritable bowel syndrome with diarrhea K58.0 Joshua Gongora MD [address] [place] [id number] 08/05/2024 Joshua Gongora Assessments Encounter Date Diagnosis (ICD Code) Assessment Notes Treatment Notes Treatment Clinical Notes Section Notes 07/11/2024 Iodine hypothyroidis m (ICD-10 - E01.8) 02/10/2025 Iodine hypothyroidis m (ICD-10 - E01.8) 02/10/2025 Encounter for administration of vaccine (ICD-10 - Z23) 02/11/2024 Bowel habit changes (ICD-10 - R19.4) [...] results of the cat scan 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 going for a second opinion 07/11/2024 History of hematuria (ICD-10 - Z87.448) 02/10/2025 Pure hypercholesterolemia (ICD-10 - E78.00) 02/11/2024 History of hematuria (ICD-10 - Z87.448) referral back to urology in [place] 04/11/2024 Irritable bowel syndrome with diarrhea (ICD-10 - K58.0) going to see dr upton next week 08/26/2024 Irritable bowel syndrome with diarrhea (ICD-10 - K58.0) patient has not started meds yet. have explained the way to use them. if she has symptoms to take for a few days and then stop to see how she is doing 02/10/2025 Vitamin D deficiency (ICD-10 - E55.9) 02/11/2024 Pure hypercholesterolemia (ICD-10 - E78.00) stable, [...] STEREO BIOPSY SI 07/06/2017 US THYROID 02/03/2023 Complete Blood Count Auto Diff 5 Comprehensive [place]. Panel Fast 5 Vitamin D 25-OH Total 02/10/2025 UA ClnCatch+Micro w/rflx Cult 02/10/2025 Future Test Test Name Order Date BONE DENSITY DEXA 01/24/2020 Next Appt Details Provider Name:Joshua Sainz ier, 02/17/2025 08:30:00 AM, [address] [place] [address], [address], [place], [place], [id number], Insurance Providers Payer Name Payer Address Payer Phone Subscriber Number Group Number Insured Name Patient Relationship to Insured Coverage Start Date Coverage End Date MEDICARE [employer] [address] [place] [address] [id number] Sherlyn Su Self - patient is the insured [facility] [address] [place] [address] [id number] Sherlyn Su Self - patient is the insured Medical (General) History Medical History History ICD Code hematuria work up in 2000 with cysto and 2009 ultrasound and cytology colonoscopy 2004; colonoscop y done 04/13/[address] Upton (repeat 10 yrs)05/11/24 colonoscopy pending path t ubular adenomos repeat in 5 y ears hematuria workup 2024 no need for furthe r evaluation
== END 2025-02-10 12:34 | disposition home or self-care (01) ==
LOC: HO.LNP 12:33
PROVIDERS: Visit Provider Internal Medicine
DX: E01.8 Other iodine-deficiency related thyroid disorders and allied conditions (principal); E78.00 Pure hypercholesterolemia, unspecified; E55.9 Vitamin D deficiency, unspecified
CPT/HCPCS: 80053; 80061; 81001; 82306; 85025

== ENCOUNTER 2025-02-17 11:18 | Outpatient (REF) | payer MEDICARE, OTHER, SELFPAY ==
--- OUTSIDE RECORDS SUMMARY | 2025-02-17 17:24 | XMS_ITS | Clinical Summary ---
Author Organization [facility] Address [address] [place] [phone] Phone Care Team Providers Care Geothermal Sheet Metal Worker Name Role Phone Joshua Gongora MD [...] her the option for second opinion with shipping specialist oncologist; with knowledge that these referrals generally [...] Office Visit [facility] [address] [place] [address] [place] [address] Susan Merchant MD Right ovarian cyst (Primary Dx) from Last 3 Months Immunizations Immunization Administration [...] patient's age to complete this topic IPV VACCINES Aged Out No longer eligi ble based on patient's age to complete this topic MENINGOCOCCAL VACCINES (ACWY) Aged Out No longer eligible based on patient's age to complete this topic MENINGOCOCCAL VACCINES (B) Aged Out N o longer eligible based on patient's age to complete this topic Medical Devices Not on file Procedures Procedure Name Priority Date/Time Associated Diagnosis Comments MAMMOGRAPHY Routine 10/09/2022 BD DXA SPINE AND HIP WITH FOREARM Routine 01/23/2020 1:38 PM EDT Osteopenia, unspecified location 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 Total bone mineral density in the right hip was calculated at 0.669 gm/sr6jkeo a T-score of -2.2 and Z-score of [...] Insurance MEDICARE PART A & B [facility] MEDICARE SUPPLEMENT MEDICARE PART A & B [employer] MEDICARE SUPPLEMENT MEDICARE PART A & B [employer] MEDICARE SUPPLEMENT MEDICARE PART A & B [facility] MEDICARE SUPPLEMENT MEDICARE PART A & B [employer] MEDICARE SUPPLEMENT MEDICARE PART A & [place] [address] [place] [address] [place] [phone] MEDICARE PART A & B [employer] MEDICARE SUPPLEMENT MEDICARE PART A & B [employer] MEDICARE SUPPLEMENT MEDICARE PART A & B [facility] MEDICARE SUPPLEMENT Care Teams Geothermal Sheet Metal Worker Relationship Specialty Start Date End Date Joshua Gongora MD [address] [place] [address] [place] [address] PCP - General 04/09/17 Additional Source Comments The information contained in this document represents components of the legal health record. It is not the complete legal health record.[facility]
--- OUTSIDE RECORDS SUMMARY | 2025-02-17 17:25 | XMS_ITS | Encounter Summary ---
Author Organization [facility] Address [address] [place] [phone] Phone Care Team Providers Care Architectural Superintendent Name Role Phone Joshua Gongora MD Primary Care Provider Encounter Details Date Type Department Care Team (Late st Contact Info) Description 06/09/2019 Ancillary Orders Virtual Department [address] [place] [address] Joshua Gongora MD [address] [place] [address] [place] [address] Osteopenia, unspecified location; Osteopenia of left hip; [...] of osteopenia and representing a 4% decline [id number] Total bone mineral density in the L2-L4 vertebral bodies was calculated at0.897 gm/cm2 with a T-score of -1.7 and Z-score of 0.4, falling within theWHO classification of osteopenia, without significant interval change [id number]. Total bone mineral density in the right hip was calculated at 0.669 gm/te6pymv a T-score of -2.2 and Z-score of [...] location documented in this encounter Care Teams Architectural Superintendent Relationship Specialty Start Date End Date Joshua Gongora MD [address] [place] [address] [place] [address] PCP - General 04/09/17 documented as of this encounter Additional Source Comments The information contained in this document represents components of the legal health record. It is not the complete legal health record.[facility]
--- OUTSIDE RECORDS SUMMARY | 2025-02-17 17:26 | XMS_ITS | Encounter Summary ---
Author Organization [facility] Address [address] [place] [address] Phone Care Team Providers Care Video Editing Intern Name Role Phone Joshua Gongora MD Primary Care Provider Encounter Details Date Type Department Care Team (Late st Contact Info) Description 06/08/2019 Ancillary Orders Virtual Department [address] [place] [address] Joshua Gongora MD [address] [place] [address] [place] [address] Osteopenia, unspecified location Social History Tobacco Use [...] location documented in this encounter Care Teams Video Editing Intern Relationship Specialty Start Date End Date Joshua Gongora MD [address] [place] [address] [place] [address] PCP - General 04/09/17 documented as of this encounter Additional Source Comments The information contained in this document represents components of the legal health record. It is not the complete legal health record.[facility]
--- OUTSIDE RECORDS SUMMARY | 2025-02-17 17:26 | XMS_ITS | Encounter Summary ---
Author Organization [facility] Address [address] [place] [address] Phone Care Team Providers Care Deployment Manager Name Role Phone Joshua Gongora MD Primary Care Provider Encounter Details Date Type Department Care Team (Late st Contact Info) Description 10/12/2017 Ancillary Orders Virtual Department [address] [place] [address] Joshua Gongora MD [address] [place] [address] [place] [address] Osteopenia, unspecified location Social History Tobacco Use [...] the right hip was calculated at 0.723 gm/vd9kmbr a T-score of -1.8 falling within the WHO classification ofosteopenia. Z-score of - 0.5. 0.2% loss of bone mineral density since thebaseline exam and 0.3% loss since the previous exam, both of which are notstatistically significant. Total bone mineral density in the left hip was calculated at 0.713 gm/lw3xfld a T-score of -1.9 falling within the [...] location documented in this encounter Care Teams Deployment Manager Relationship Specialty Start Date End Date Joshua Gongora MD [address] [place] [address] [place] [address] PCP - General 04/09/17 documented as of this encounter Additional Source Comments The information contained in this document represents components of the legal health record. It is not the complete legal health record.[facility]
--- OUTSIDE RECORDS SUMMARY | 2025-02-17 17:26 | XMS_ITS | Encounter Summary ---
Author Organization [facility] Address [address] [place] [address] Care Team Providers Care Air Conditioning Technician Name Role Phone Unavailable Primary Care Provider Unavailabl e Encounter Details Date Type Department Care Team (Late st Contact Info) Description 02/23/2024 Lab Requisition [facility] - Main Lab [address] [facility] [place] [address] Teofilo Fletcher MD [address] [facility] [address] [place] [phone] Benign essential microscopic hematuria Social History Tobacco [...] and pathological findings. 03/15/2024 8:59 AM EST [facility] Addendum electronically signed by Mark Young MD on 03/15/2024 at 8:59 AM Final Diagnosis Urine, Voided: Negative for high grade urothelial carcinoma. Acute inflammatory cells present. Note: UroVysion testing to follow. 03/15/2024 8:59 AM EST [facility] Gross Description A. Urine, Voided, : [id number] Recd 1 TP CYTO 1 TP FISH 03/15/2024 8:59 AM EST [facility] Disclaimer Unless otherwise specified, all tissue is 10% NB formalin fixed and paraffin embedded. 03/15/2024 8:59 AM [facility] Tissue Urine specimen from urethra / Unknown 02/15/2024 02/23/2024 1:55 PM EST us Teofilo Fletcher MD LAB PATHOLOGY ORDERABLES Edited Result - Final [facility] [address] [place] [address], documented in this encounter Visit Diagnoses Diagnosis Benign essential microscopic hematuria documented in this encounter
--- OUTSIDE RECORDS SUMMARY | 2025-02-17 17:26 | XMS_ITS | Clinical Summary ---
Author Organization [address] Address [address] [place] [phone] Phone Care Team Providers Care Fruit I Farmworker Name Role Phone Unavailable Primary Care Provider [...] Procedure Name Priority Date/Time Associated Diagnosis Comments [facility] SCREENING DIGITAL Routine 10/26/2023 12:54 PM EDT Encounter for screening mammogram for malignant neoplasm of breast from Last 3 Months or Most Recently Relevant to Health Maintenance Results * [facility] SCREENING DIGITAL (10/26/2023 12:54 PM EDT) Anatomical Region Laterality Modality Mammography 10/26/2023 10:0 2 AM EDT Narrative 10/26/2023 12:54 PM EDT [facility] Diagnostic Imaging Department [address] [place] [address] Patient: JOHNNY FREEMAN D.O.B./Age/Sex: 1950 - 73 - F Unit#: [id number] Location/Status: SPDIMAM/REG CLI Mnemonic/Ordering Site: [facility] Ordering Physician: JOSHUA VASQUEZ MD [facility] Screening Digital - 10/26/23 - 1025 Report Status:Signed EXAM: [facility] Screening Digital EXAM DATE AND TIME: 10/26/2023 10:26 AM HISTORY: Annual screening COMPARISON: 10/09/2022, 09/30/2021, 09/28/2020, 09/27/2019 and 07/12/2018 TECHNIQUE: Bilateral digital breast tomosynthesis was performed in the CC and MLO projections. Computer aided detection with Easy Square Feet 7.2-H and BalaBit 3D 3.1 was employed. TISSUE DENSITY: c. [...] Procedure Note Flako Shaw MD - 01/20/2024 [facility] Diagnostic Imaging Department [address] [place] [address] Patient: PETEJOHNNY D.O.B./Age/Sex: 1950 - 73 - F Unit#: [id number] Location/Status: SPDIMAM/REG CLI Mnemonic/Ordering Site: [facility] Ordering Physician: JOSHUA VASQUEZ MD [facility] Screening Digital - 10/26/23 - 1025 Report Status:Signed EXAM: [facility] Screening Digital EXAM DATE AND TIME: 10/26/2023 10:26 AM HISTORY: Annual screening COMPARISON: 10/09/2022, 09/30/2021, 09/28/2020, 09/27/2019 and 07/12/2018 TECHNIQUE: Bilateral digital breast tomosynthesis was performed in the CCand MLO projections. Computer aided detection with Easy Square Feet 7.2-H andBalaBit 3D 3.1 was employed. TISSUE DENSITY: c. [...]
== END 2025-02-17 11:19 | disposition home or self-care (01) ==
LOC: HO.LNP 11:18
PROVIDERS: Visit Provider Internal Medicine
DX: E01.8 Other iodine-deficiency related thyroid disorders and allied conditions (principal)
CPT/HCPCS: 84443

== ENCOUNTER 2025-02-20 11:54 | Outpatient (AMB) | payer MEDICARE, OTHER, SELFPAY | END 2025-02-20 11:54 | disposition home or self-care (01) | LOC: HO.HMGAL 11:54 | PROVIDERS: PCP Internal Medicine; Visit Provider Registered Nurse Emergency | DX: J30.89 Other allergic rhinitis (principal) | CPT/HCPCS: 95117; 95165 ==

== ENCOUNTER 2025-03-22 11:14 | Outpatient (AMB) | payer MEDICARE, OTHER, SELFPAY ==
--- OUTSIDE RECORDS SUMMARY | 2024-02-04 02:15 | XMS_ITS ---
Author Organization Joshua Gongora MD Address [address] [place] [phone] Care Team Providers Care Tube Wrapper Name Role Phone Joshua Gongora Primary Care Provider [phone] Results Component Value Reference Range Notes Complete Blood Count Auto Di ff Reviewed date:02/04/2024 12:32:16 PM Interpretation: Performing Lab:[facility], [address] [place] [phone] Notes/Report: White Blood Count 7.7 4.8-10.8 X10*3/uL Red Blood Count 4.41 4.20-5.50 X10*6/uL Hemoglobin 13.3 12.0-16.0 g/dl Hematocrit 41.0 37.0-47.0 % Mean Corpuscular Volume 93.0 80.0-98.0 fL Mean Corpuscular Hemoglobin 30.2 27.0-33.0 pg Mean Corpuscular HGB Conc 32.4 31.0-35.0 g/dl Red Cell Distribution Width 13.5 11.0-16.0 % Platelet Count 223 160-400 X10*3/uL Mean Platelet Volume 11.1 9.4-12.3 fL Neutrophils Percent Auto 41.2 45-73 % Imm Gran Pct Auto 0.3 0.0-0.4 % Lymphocytes Percent Auto 46.1 20-40 % Monocytes Percent Auto 7.5 2-11 % Eosinophils Percent Auto 3.7 0-4 % Basophils Percent Auto 1.2 0-2 % NRBC Pct Auto 0.0 0.0-0.2 /100WBC Neutrophils Absolute Auto 3.2 2.0-8.3 x10*3/u L Imm Gran Abs Auto 0.02 0.00-0.03 X10*3/uL Lymphocytes Absolute Auto 3.5 1.2-4.9 X10*3/u L Monocytes Absolute Auto 0.6 0.1-1.2 X10*3/uL Eosinophils Absolute Auto 0.3 0.0-0.4 X10*3/u L Basophils Absolute Auto 0.1 0.0-0.2 X10*3/uL NRBC Abs Auto 0.000 0.0-0.012 X10*3/uL Comprehensive [place]. Panel Fa st Reviewed date:02/04/2024 03:36:23 PM Interpretation: Performing Lab:[facility], [address] [place] [phone] Notes/Report: Sodium 142 135-145 mmol/L Potassium 3.8 3.3-5.1 mmol/L Chloride 106 96-108 mmol/L Carbon Dioxide 30 22-29 mmol/L Anion Gap 10 12-20 Blood Urea Nitrogen 14 9-16 mg/dL Creatinine 0.65 0.5-1.4 mg/dL Estimated Glomerular Filt Rate > 60 NOTE: For -Irish individuals, multiply the result by 1.210. Chronic Kidney Disease: Estimated GFR < 60 mL/min/1.73m2 Severe Kidney Disease: Estimated GFR < 15 mL/min/1.73m2 Glucose Fasting 80 60-99 mg/dL Calcium 9.9 8.4-10.2 mg/dL Bilirubin Total 0.5 0.0-1.0 mg/dL Aspartate Amino Transferase 25 5-31 U/L Alanine Aminotransferase 18 0-31 U/L Total Protein 6.6 6.5-8.0 g/dL Albumin Level 3.8 3.5-5.0 g/dL Alkaline Phosphatase 69 39-117 U/L Lipid Panel Reviewed date:02/04/2024 03:36:00 PM Interpretation: Performing Lab:[facility], [address] [place] [phone] Notes/Report: Triglycerides 103 <150 mg/dL Desirable Triglyceride: less than 150 mg/dL Borderline High Triglyceride 150-199 mg/dL High Triglyceride: 200-499 mg/dL Very High Triglyceride: greater than or equal to 5OO mg/dL Cholesterol 234 <200 mg/dL Desirable Cholesterol: less than 200 mg/dL Borderline High Cholesterol: 200-239 mg/dL High Cholesterol: greater than 239 mg/dL LDL Cholesterol Calculated 128 <100 mg/dL Desirable LDL: less than 100 mg/dL Near Optimal/Above Optimal LDL: 110-129 mg/dL Borderline High LDL: 130-159 mg/dL High LDL: 160-189 mg/dL Very High LDL: greater than or equal to 190 mg/dL HDL Cholesterol 86 >40 mg/dL Desirable HDL: greater than 40 mg/dL Note: This HDL assay may give artificially low results in patients with liver disease. Vitamin D 25-OH Total Reviewed date:02/04/2024 03:36:08 PM Interpretation: Performing Lab:[facility], [address] [place] [phone] Notes/Report: Vitamin D 25-OH Total 60.6 >30 ng/mL Health Based Reference Values* < 20 ng/mL Deficient 20-30 ng/mL Insufficient > 30 ng/mL Sufficient *Tara HOLLAND. N Engl J Med. 2007;357:266-280 Care must be taken in interpreting Vitamin D results from different laboratories and methodologies. Published data demonstrated that results from patients undergoing hemodialysis may show a negative bias when tested with various automated 25-OH vitamin D assays when compared to LC-MS/MS. When testing samples from patients whose predominant form of Vitamin D is Vitamin D2, such as patients receiving Vitamin D2 supplementation, results that are subtherapeutic should be confirmed with another method such as LC-MS/MS. TSH reflex Free T4 Reviewed date:02/04/2024 03:35:51 PM Interpretation: Performing Lab:[facility], [address] [place] [phone] Notes/Report: TSH reflex Free T4 4.02 0.32-4.0 uIU/mL UA ClnCatch+Micro w/rflx Cul t Reviewed date:02/11/2024 11:16:25 AM Interpretation:see back 02-11-24 Performing Lab:[facility], [address] [place] [phone] Notes/Report: Urine, Clean Catch Color Urine Yellow Appearance Urine Clear PH 6.5 5.0-9.0 Glucose Urine UA Negative Negative mg/dL Urine Blood Moderate (2+) Negative Specific [place] - Urine 1.010 1.005-1.025 Urine Protein Negative Neg-Trace mg/dL Urine Ketones Negative Negative mg/dL Nitrite Urine Negative Negative Leukocyte Esterase Urine Trace Negative RBC Urine 6-10 0-2 /HPF WBC Urine 0-5 0-5 /HPF Squamous Epithelial Cell Urine 0-2 0-2 /HPF Bacteria Urine None Seen None Seen Hyaline Casts Urine 0-2 0-2 /LPF REASON FOR VISIT yearly fasting labs Encounters Encounter Location Date Provider Diagnosis Joshua Gongora MD [address] [place] [address] [place] [phone] 02/04/2024 Joshua Gongora 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 ; Pure hypercholesterolemia E78.00 and Vitamin D deficiency E55.9 Assessments Encounter Date Diagnosis (ICD Code) Assessment Notes Treatment Notes Treatment Clinical Notes Section Notes 02/04/2024 Iodine hypothyroidis m (ICD-10 - E01.8) 02/04/2024 Pure hypercholesterolemia (ICD-10 - E78.00) 02/04/2024 Vitamin D deficiency (ICD-10 - E55.9) Plan Of Treatment Next Appt Details Provider Name:Joshua small, 08/18/2025 09:00:00 AM, [address] [place] [address], [address], [place], [place], [phone], Provider Name:Joshua Sainz ier, 02/15/2026 07:30:00 AM, [address], [address], [place], [place], [phone], Provider Name:Joshua Sainz ier, 02/22/2026 09:30:00 AM, [address], [address], [place], [phone], Progress Notes * Kathy FREEMAN MDOB:1950 (74 yo F)Acc No.[id number]:02/04/2024 Progress Note Patient: Kathy BLAS Provider: Yashira Gongora MD :1950 A ge:73 Y S ex:Female Date:02/04/2024 Address:[address] [place] [phone] Subjective: * Chief Complaints: * 1 . Yearly fasting labs. * Medical History: Objective: * Vitals: Assessment: * Assessment: 1. 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 P ure hypercholesterolemia - E78.00 3 . V itamin D deficiency - E55.9 Plan: * Treatment: 2.?Pure hypercholesterolemia?LAB: Complete Blood Count Auto Diff (Collection Date & Time - 02/04/2024 07:15 AM) ?LAB: Comprehensive [place]. Panel Fast (Collection Date & Time - 02/04/2024 07:15 AM) ?LAB: Lipid Panel (Collection Date & Time - 02/04/2024 07:15 AM) ?LAB: Vitamin D 25-OH Total (Collection Date & Time - 02/04/2024 07:15 AM) ?LAB: TSH reflex Free T4 (Collection Date & Time - 02/04/2024 07:15 AM) ?LAB: UA ClnCatch+Micro w/rflx Cult (Collection Date & Time - 02/04/2024 07:15 AM)* Joshua Gongora 02/04/2024 03:33:57 PM EDT > must see 3.?Vitamin D deficiency?LAB: Complete Blood Count Auto Diff (Collection Date & Time - 02/04/2024 07:15 AM) ?LAB: [facility] [place]. Panel Fast (Collection Date & Time - 02/04/2024 07:15 AM) ?LAB: Lipid Panel (Collection Date & Time - 02/04/2024 07:15 AM) ?LAB: Vitamin D 25-OH Total (Collection Date & Time - 02/04/2024 07:15 AM) ?LAB: TSH reflex Free T4 (Collection Date & Time - 02/04/2024 07:15 AM) ?LAB: UA ClnCatch+Micro w/rflx Cult (Collection Date & Time - 02/04/2024 07:15 AM)* Joshua Gongora 02/04/2024 03:33:57 PM EDT > must see * Procedure Codes: 3 6415 VENIPUNCT, ROUTINE* * * The named appointment provid er may or may not be the originator of this progress note, and it is not deemed complete until electronically signed by the appointment provider. Sign off status: Pending * Provider: Yashira Gongora MD Date: 1 Generated for Alfonzo christianson/Poncho/Yen on: 1 05/23/2024 02:54 PM EST
--- OUTSIDE RECORDS SUMMARY | 2024-02-11 03:30 | XMS_ITS ---
Author Organization Joshua Gongora MD Address [address] [place] [phone] Care Team Providers Care Anchor Tacker Name Role Phone Joshua Gongora Primary Care Provider [phone] Allergies Allergen (clinical drug ingredient) Drug/Non Drug Allergy documented on EMR Reaction Allergy Type Onset Date Status Hair dye hair dye (uncoded) Unknown Allergy A ctive fragrance in mycolog (uncoded) blister Allergy Active Results Component Value Reference Range Notes Occult Blood, Stool, Guaiac Reviewed date:02/22/2024 03:13:03 PM Interpretation:Positive Performing Lab: Notes/Report: Positive Occult Blood, Stool, Guaiac pos Reason For Referral Reason bowel habit changes Diagnosis 1 Bowel habit changes (R19.4) Referral Organization Joshua Gongora MD Referring Provider First Name Joshua Referring Provider Last Name Rolan Referring Provider Speciality Internal edicine Referred Provider Jake Upton Referred Provider Specialty Gastroentero logy General Notes Eleonora Agosto 01:45:11 PM EST > info faxed , Eleonora Agosto 02/23/2024 03:05:46 PM EST > info mailed to patient, Pretty Mcdaniel 04/21/2024 09:40:48 AM >OFFICE NOTE RECD Referral Priority Routine Referral Appointment Date 04/18/2024 Reason history of hematuria Diagnosis 1 History of hematuria (Z87.448) Referral Organization Joshua Gongora MD Referring Provider First Name Joshua Referring Provider Last Name Rolan Referring Provider Speciality Internal edicine Referred Provider Teofilo Fletcher Referred Provider Specialty Urology General Notes Eleonora Agosto 01:45:41 PM EST > info faxed Referral Priority Routine Referral Appointment Date 02/15/2024 REASON FOR VISIT comp visit/ must see U/A Medications Medication SIG (Take, Route, Frequency, Duration) Notes Start Date End Date Status Levothyroxine Sodium 100 MCG 1 tablet on an empty stomach in the morning Orally 4 TIMES a week Active Vitamin D 2000 UNIT 1 tablet Orally ever y other day Active Levothyroxine Sodium 88 MCG 1 tablet on an empty stomach in the morning Orally 3 days a week Active Clobetasol Prop Oint-Craighead Tar 0.05 & 2.3 % as directed Externally A ctive metroNIDAZOLE 0.75 % 1 application to affected area Externally Twice a day Unknown Ketoconazole 2 % 1 application Externally QOD Active LORazepam 0.5 MG 1 tablet as needed Orally every 12 hour for 7 days 10/12/2017 Not-Taking Social History Tobacco Use: Social History Observation Description Date Details (start date - stop date) Current Smoker NA - NA Tobacco Use/Smoking Question Answer Notes Patient is a current smoker How often do you smoke cigarettes? every day How many cigarettes a day do you smoke? 5 or les s How soon after you wake up d o you smoke your first cigarette? after 60 minutes Are you interested in quitting? Thinking about q uitting Additional Findings: Tobacco User Morales t cigarette smoker, not currently using another form of tobacco Alcohol Screen Question Answer Notes Did you have a drink contain ing alcohol in the past year? Yes How often did you have a dri nk containing alcohol in the past year? Monthly or less (1 point) How many drinks did you have on a typical day when you were drinking in the past year? 1 or 2 drinks (0 point) How often did you have 6 or more drinks on one occasion in the past year? 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 02/11/2024 History of hematuria (ICD-10 - Z87.448) referral back to urology in [place] 02/11/2024 Pure hypercholesterolemia (ICD-10 - E78.00) stable, will continue to monitor 02/11/2024 Vitamin D deficiency (ICD-10 - E55.9) stable, will contiue current regiment 02/11/2024 Colon cancer screeni ng (ICD-10 - Z12.11) guaiac positive 02/11/2024 Depression screening (ICD-10 - Z13.31) negative screen Plan Of Treatment Medication Medication Name Sig Start Date Stop Date Notes Levothyroxine Sodium 100 MCG 1 tablet on an empty stomach in the morning Orally 4 TIMES a week Vitamin D 2000 UNIT 1 tablet Orally ever y other day Levothyroxine Sodium 88 MCG 1 tablet on an empty stomach in the morning Orally 3 days a week Treatment Notes Assessment Notes Bowel habit changes refer back to dr madi quick Iodine hypothyroidism leave on present m eds. History of hematuria referral back to [facility] in [place] Pure hypercholesterolemia stable, will c ontinue to monitor Vitamin D deficiency stable, will contiu e current regiment Colon cancer screening guaiac positive Depression screening negative screen Referrals Referral Date Details 02/11/2024 02/11/2024, bowel waddell bit changes , Jake Abelardo 02/11/2024 02/11/2024, history of hematuria , Teofilo Chance Next Appt Details Follow Up: 2 Months, Reason: Provider Name:Joshua diazr, 08/18/2025 09:00:00 AM, [address] [place] [address], Suite [facility], [place], [place], [phone], Provider Name:Joshua diazr, 02/15/2026 07:30:00 AM, [address] [place] [address], [place] [address], [place], [place], [phone], Provider Name:Joshua diazr, 02/22/2026 09:30:00 AM, [address] [place] [address], [address] [facility], [place], [place], [phone], Progress Notes * Kathy FREEMAN MDOB:1950 (73 yo F)Acc No.[id number]:02/11/2024 Patient: Kathy Anglin Provider: Yashira Gongora MD :1950 A ge:73 Y S ex:Female Date:02/11/2024 Address:[address] [place] [address], [facility] [id number] Subjective: * Chief Complaints: * c omp visit/ must see U/A * HPI: D epression Screening: PHQ-9 L ittle interest or pleasure in doing things N ot at all, F eeling down, depressed, or hopeless N ot at all, T rouble falling or staying asleep, or sleeping too much N ot at all, F eeling tired or having little energy N ot at all, P oor appetite or overeating N ot at all, F eeling bad about yourself or that you are a failure, or have let yourself or your family down N ot at all, T rouble concentrating on things, such as reading the newspaper or watching television N ot at all, M oving or speaking so slowly that other people could have noticed; or the opposite, being so fidgety or restless that you have been moving around a lot more than usual N ot at all, T houghts that you would be better off or of hurting yourself in some way N ot at all, T otal Score 0 . I nterpretation and Intervention D epression Screening Findings N egative, F ollow-Up for Depression : review of PHQ-9 found negative result, no follow-up needed. patient is a 73 yo female here or review of recent labs and follow up of chronic issues, having abdominal pain and frequent bm. several times per day. eliminating dairy and it helps a little. C ommunication Needs: Communication Needs D oes the patient have a hearing impairment N o, D oes the patient have a vision impairment? Y es, I f yes, what is the vision impairment? G lasses, D oes the patient have a cognition impairment? N o. F all Risk: History H ave you had any falls with injury in the past year? N o, H ave you had two or more falls in the past year? N o. S ILEANA Questions: SDOH Questions I n the past year have you been worried about losing housing? N o, I n the past year have you or any family members you live with been unable to get any of the following when it was really needed? Check all that apply: N one. * ROS: G eneral/Constitutional: Patient denies f atigue , headache. C hange in appetite?denies. C hills d enies. F ever d enies. O phthalmologic: Blurred vision d enies. D ischarge d enies. P ain d enies. E NT: Patient denies d ecreased sense of smell , any loss of taste , sore throat. D ecreased hearing d enies. S ore throat d enies. S wollen glands d enies. E ndocrine: Cold intolerance d enies. E xcessive thirst d enies. H eat intolerance d enies. W eight loss d enies. R espiratory: Cough d enies. S hortness of breath at rest d enies. S hortness of breath with exertion d enies. W heezing d enies. C ardiovascular: Chest pain at rest d enies. C hest pain with exertion?denies. I rregular heartbeat d enies. S hortness of breath d enies. ? G astrointestinal: Abdominal pain d enies. C hange in bowel habits d enies. D iarrhea d enies. N ausea d enies. R ectal bleeding d enies. V omiting d enies . G enitourinary: Blood in urine d enies. D ifficulty urinating d enies. F requent urination d enies. U rinary incontinence D enies. M usculoskeletal: Patient denies m uscle aches. P ainful joints d enies. W eakness d enies. P eripheral Vascular: Patient denies r ed and blue toes. S kin: Dry skin d enies. I tching d enies. D enies?Mole(s), changes in moles, new moles or any lesions of concern. D enies P hotosensitivity. R delphine d enies. N eurologic: Dizziness d enies. F ainting d enies. H eadache?denies. * Medical History: * Surgical History: * Hospitalization/Major Diagno stic Procedure: * Family History: F ather: 76 yrs, diagnosed with Diabetes, Hypertension. M other: 90 yrs.?1 sister(s) - healthy. . mother, renal failure, Denies mental health/substance abuse family history, Denies mental health/substance abuse family history, Denies mental health/substance abuse family history. * Social History: T obacco Use: T obacco Use/Smoking P atient is a c urrent smoker, H ow often do you smoke cigarettes? e very day, H ow many cigarettes a day do you smoke? 5 or less, H ow soon after you wake up do you smoke your first cigarette? a fter 60 minutes, A re you interested in quitting? T hinking about quitting, A dditional Findings: Tobacco User C urrent cigarette smoker, not currently using another form of tobacco. D rugs/Alcohol: A lcohol Screen D id you have a drink containing alcohol in the past year? Y es, H ow often did you have a drink containing alcohol in the past year? M onthly or less (1 point), H ow many drinks did you have on a typical day when you were drinking in the past year? 1 or 2 drinks (0 point), H ow often did you have 6 or more drinks on one occasion in the past year? N ever (0 point), P oints 1 , I nterpretation N egative. M iscellaneous: n o Caffeine. no Children. Community involvements: yes. Exercise: yes, daily or at least 5 times per week walks 5 timesa week chair yoga. Home smoke detector use: yes. Housing: owning. Living with: alone. Marital status: single. Occupation: retired. Pets: none. no Travel outside of the [place]. U sing electronic cigarette. * Medications: T akingLevothyroxine Sodium 100 MCG Tablet 1 tablet on an empty stomach in the morning Orally 4 TIMES a weekLevothyroxine Sodium 88 MCG Tablet 1 tablet on an empty stomach in the morning Orally 3 days a weekClobetasol Prop Oint-Craighead Tar 0.05 & 2.3 % Kit as directed Externally Ketoconazole 2 % Cream 1 application Externally QODVitamin D 2000 UNIT Tablet 1 tablet Orally every other dayTaking Levothyroxine Sodium 100 MCG Tablet 1 tablet on an empty stomach in the morning Orally 4 TIMES a weekTaking Levothyroxine Sodium 88 MCG Tablet 1 tablet on an empty stomach in the morning Orally 3 days a weekTaking Clobetasol Prop Oint-Craighead Tar 0.05 & 2.3 % Kit as directed Externally Taking Ketoconazole 2 % Cream 1 application Externally QODTaking Vitamin D 2000 UNIT Tablet 1 tablet Orally every other dayNot-Taking/PRNLORazepam 0.5 MG Tablet 1 tablet as needed Orally every 12 hourNot-Taking/PRN LORazepam 0.5 MG Tablet 1 tablet as needed Orally every 12 hourDiscontinuedCelecoxib 200 MG Capsule 1 capsule Orally Once a dayAtivan 0.5 MG Tablet 1 tablet at bedtime as needed Orally Once a dayDiscontinued Celecoxib 200 MG Capsule 1 capsule Orally Once a dayDiscontinued Ativan 0.5 MG Tablet 1 tablet at bedtime as needed Orally Once a dayUnknownmetroNIDAZOLE 0.75 % Cream 1 application to affected area Externally Twice a dayMedication List reviewed and reconciled with the patientUnknown metroNIDAZOLE 0.75 % Cream 1 application to affected area Externally Twice a dayMedication List reviewed and reconciled with the patient * Allergies: f ragrance in mycolog: iam kayy[Allergies Verified] Objective: * Vitals: H t: 62.00, Wt:115, BMI:21.03, BP:128/86. * P ast Orders: L ab:Comprehensive [place]. Panel Fast (Order Date - 02/04/2024) (Collection Date - 02/04/2024) Value Reference Range Sodium 142 135-145 - mmol/L Bilirubin Total 0.5 0.0-1.0 - mg/dL Aspartate Amino Transferase 25 5-31 - U/L Alanine Aminotransferase 18 0-31 - U/L Total Protein 6.6 6.5-8.0 - g/dL Albumin Level 3.8 3.5-5.0 - g/dL Alkaline Phosphatase 69 39-117 - U/L Potassium 3.8 3.3-5.1 - mmol/L Chloride 106 96-108 - mmol/L Carbon Dioxide 30 H 22-29 - mmol/L Anion Gap 10 L 12-20 - Blood Urea Nitrogen 14 9-16 - mg/dL Creatinine 0.65 0.5-1.4 - mg/dL Estimated Glomerular Filt Rate > 60 - Glucose Fasting 80 60-99 - mg/dL Calcium 9.9 8.4-10.2 - mg/dL L ab:Lipid Panel (Order Date - 02/04/2024) (Collection Date - 02/04/2024) Value Reference Range Triglycerides 103 <150 - mg/dL Cholesterol 234 H <200 - mg/dL LDL Cholesterol Calculated 128 H <100 - mg/dL HDL Cholesterol 86 >40 - mg/dL L ab:Vitamin D 25-OH Total (Order Date - 02/04/2024) (Collection Date - 02/04/2024) Value Reference Range Vitamin D 25-OH Total 60.6 >30 - ng/mL L ab:TSH reflex Free T4 (Order Date - 02/04/2024) (Collection Date - 02/04/2024) Value Reference Range TSH reflex Free T4 4.02 H 0.32-4.0 - uIU/mL L ab:Free T4 (Free Thyroxine) (Order Date - 02/04/2024) (Collection Date - 02/04/2024) Value Reference Range Free T4 (Free Thyroxine) 0.96 0.71-1.85 - ng/ dL L ab:Complete Blood Count Auto Diff (Order Date - 02/04/2024) (Collection Date - 02/04/2024) Value Reference Range White Blood Count 7.7 4.8-10.8 - X10*3/uL Red Blood Count 4.41 4.20-5.50 - X10*6/uL Hemoglobin 13.3 12.0-16.0 - g/dl Hematocrit 41.0 37.0-47.0 - % Mean Corpuscular Volume 93.0 80.0-98.0 - fL Mean Corpuscular Hemoglobin 30.2 27.0-33.0 - pg Mean Corpuscular HGB Conc 32.4 31.0-35.0 - g/ dl Red Cell Distribution Width 13.5 11.0-16.0 - % Platelet Count 223 160-400 - X10*3/uL Mean Platelet Volume 11.1 9.4-12.3 - fL Neutrophils Percent Auto 41.2 L 45-73 - % Imm Gran Pct Auto 0.3 0.0-0.4 - % Lymphocytes Percent Auto 46.1 H 20-40 - % Monocytes Percent Auto 7.5 2-11 - % Eosinophils Percent Auto 3.7 0-4 - % Basophils Percent Auto 1.2 0-2 - % NRBC Pct Auto 0.0 0.0-0.2 - /100WBC Neutrophils Absolute Auto 3.2 2.0-8.3 - x10* 3/uL Imm Gran Abs Auto 0.02 0.00-0.03 - X10*3/uL Lymphocytes Absolute Auto 3.5 1.2-4.9 - X10* 3/uL Monocytes Absolute Auto 0.6 0.1-1.2 - X10*3/ uL Eosinophils Absolute Auto 0.3 0.0-0.4 - X10* 3/uL Basophils Absolute Auto 0.1 0.0-0.2 - X10*3/ uL NRBC Abs Auto 0.000 0.0-0.012 - X10*3/uL * Examination: G eneral Examination: GENERAL APPEARANCE: w ell developed, well nourished, in no acute distress. HEAD: n ormocephalic, atraumatic. EYES: p upils equal, round, reactive to light and accommodation, sclera non-icteric. EARS: n ormal. ORAL CAVITY: m ucosa moist. THROAT: c lear. NECK/THYROID: n franklin supple, full range of motion, no cervical lymphadenopathy, no bruits. SKIN: w arm and dry, no suspicious lesions. HEART: r egular rate and rhythm, S1, S2 normal, no murmurs.? LUNGS: c lear to auscultation bilaterally. BREASTS: N o mass, no lump. ABDOMEN: s oft, nontender, nondistended, bowel sounds present, normal, no organomegaly , no masses palpable. RECTAL EXAM: s tool guaiac negative , stool guaiac positive. FEMALE GENITOURINARY: d one by blowing weasand. EXTREMITIES: n o clubbing, cyanosis, or edema. NEUROLOGIC: n onfocal, motor strength normal upper and lower extremities, sensory exam intact. Assessment: * Assessment: 1. B owel habit changes - R19.4 (Primary) 2 . I odine hypothyroidism - E01.8 3 .?History of hematuria - Z87.448 4 . P ure hypercholesterolemia - E78.00 5 . V itamin D deficiency - E55.9 6 . C olon cancer screening - Z12.11 7 . D epression screening - Z13.31 Plan: * Treatment: 2. I odine hypothyroidism Continue Levothyroxine Sodium Tablet, 100 MCG, 1 tablet on an empty stomach in the morning, Orally, 4 TIMES a week; C ontinue Levothyroxine Sodium Tablet, 88 MCG, 1 tablet on an empty stomach in the morning, Orally, 3 days a week. Notes: leave on present meds. 3. H istory of hematuria Notes: referral back to urology in [place] Referral To:[facility] ASENC[facility] Reason:history of hematuria 4. P ure hypercholesterolemia Notes: stable, will continue to monitor 5. V itamin D deficiency Continue Vitamin D Tablet, 2000 UNIT, 1 tablet, Orally, every other day. Notes: stable, will contiue current regiment 6. C olon cancer screening L AB: Occult Blood, Stool, Guaiac P ositive Value Reference Range O ccult Blood, Stool, Guaiac pos Notes: guaiac positive??7.?Depression screening? Notes: negative screen?? * Procedure Codes: 8 2270 TEST FOR BLOOD, FECES * Follow Up: 2 Months * * Sign off status: Completed true * Provider: Yashira Gongora MD Date: 04/12/2023 Generated for Alfonzo christianson/Poncho/Chingitting on: 05/23/2024 02:53 PM EST History and Physical Notes * HPI (History of Present Illness) Category Sub-Category Detail Notes Category Not es Depression Screening PHQ-9 Little inte rest or pleasure in doing things: Not at all patient is a 73 yo female here or review of recent labs and follow up of chronic issues, having abdominal pain and frequent bm. several times per day. eliminating dairy and it helps a little Feeling down, depressed, or hopeless: No t at all Trouble falling or staying asleep, or sl eeping too much: Not at all Feeling tired or having little energy: N ot at all Poor appetite or overeating: Not at all Feeling bad about yourself o r that you are a failure, or have let yourself or your family down: Not at all Trouble concentrating on thi ngs, such as reading the newspaper or watching television: Not at all Moving or speaking so slowly that other people could have noticed; or the opposite, being so fidgety or restless that you have been moving around a lot more than usual: Not at all Thoughts that you would be b daljit off or of hurting yourself in some way: Not at all Total Score: 0 Interpretation and Intervention Depression Mick horner Findings: Negative Follow-Up for Depression: : review of PH Q-9 found negative result, no follow-up needed SDOH Questions SDOH Questions In the past year have you been worried about losing housing?: No In the past year have you or any family members you live with been unable to get any of the following when it was really needed? Check all that apply:: None Fall Risk History Have you had any falls with injury i n the past year?: No Have you had two or more falls in the year?: No Communication Needs Communication Needs Does the patient have a hearing impairment: No Does the patient have a vision impairmen t?: Yes If yes, what is the vision impairment?: Glasses Does the patient have a cognition impair ment?: No Examination Category Sub-Category Detail Notes Category Not es General Examination GENERAL APPEARANCE: well dev eloped, well nourished, in no acute distress HEAD: normocephalic, atrau matic EYES: pupils equal, round, reactive to light and accommodation, sclera non-icteric EARS: normal THROAT: clear NECK/THYROID: neck supple, full ra nge of motion, no cervical lymphadenopathy, no bruits HEART: regular rate and rhy thm, S1, S2 normal, no murmurs LUNGS: clear to auscultatio n bilaterally ABDOMEN: soft, nontender, non distended, bowel sounds present, normal, no organomegaly , no masses palpable NEUROLOGIC: nonfocal, motor stre ngth normal upper and lower extremities, sensory exam intact SKIN: warm and dry, no hernan picious lesions EXTREMITIES: no clubbing, cyanosi s, or edema BREASTS: No mass, no lump RECTAL EXAM: stool guaiac negativ e , stool guaiac positive FEMALE GENITOURINARY: done by blowing weasand ORAL CAVITY: mucosa moist Consultation Request Notes Referral Date Referring Provider Referred Provider Not es 02/11/2024 Joshua Gongora Bernard bowel habit changes 02/11/2024 Joshua Gongora Jonathan histo ry of hematuria
--- OUTSIDE RECORDS SUMMARY | 2024-04-11 04:00 | XMS_ITS ---
Author Organization Joshua Gongora MD Address [address] [place] [phone] Care Team Providers Care Radio Operator Name Role Phone Joshua Gongora Primary Care Provider Allergies Allergen (clinical drug ingredient) Drug/Non Drug Allergy documented on EMR Reaction Allergy Type Onset Date Status Hair dye hair dye (uncoded) Unknown Allergy A ctive fragrance in mycolog (uncoded) blister Allergy Active REASON FOR VISIT 2 month/ must see ovarian cyst Medications Medication SIG (Take, Route, Frequency, Duration) Notes Start Date End Date Status Levothyroxine Sodium 88 MCG 1 tablet on an empty stomach in the morning Orally 5 days a week for 90 days Active metroNIDAZOLE 0.75 % 1 application to affected area Externally Twice a day Unknown Clobetasol Prop Oint-Peoria Tar 0.05 & 2.3 % as directed Externally A ctive Levothyroxine Sodium 100 MCG 1 tablet on an empty stomach in the morning Orally 2 times per week for 90 days Active Ketoconazole 2 % 1 application Externally QOD Active LORazepam 0.5 MG 1 tablet as needed Orally every 12 hour for 7 days 10/12/2017 Not-Taking Vitamin D 2000 UNIT 1 tablet Orally ever y other day Active Problems Problem Type SNOMED Code ICD Code Onset Dates Problem Status W/U Status Risk Notes Problem 081422851 Irritable bowel syndrome with diarrhea (K58.0) Active confirmed Vital Signs Blood pressure systolic 134 mm Hg 04/11/19 25 Blood pressure diastolic 76 mm Hg 025 Height 62.00 in 04/11/2024 Weight 119 lbs 04/11/2024 BMI 21.76 kg/m2 04/11/2024 weight is up 4 pounds since 02-11-24 Encounters Encounter Location Date Provider Diagnosis oJshua Gongora MD [address] [place] [address] [address] [place], [place] [phone] 04/11/2024 Joshua Gongora History of hematuria Z87.448 ; Cyst of ovary, unspecified laterality N83.209 ; Irritable bowel syndrome with diarrhea K58.0 and 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 they did not find any problems and told her it seemed to be her post menopausal situation. 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 they did not find any problems and told her it seemed to be her post menopausal situation. no further evaluation needed Cyst of ovary, unspecified laterality br ing the results of the cat scan to her scrap worker Irritable bowel syndrome with diarrhea g oing to see dr upton next week Next Appt Details Follow Up: 3 Months, Reason: Provider Name:Joshua Elliottreta ier, 08/18/2025 09:00:00 AM, [address] [place] [address], Suite [facility], [place], [place], [phone], Provider Name:Joshua Sainz ier, 02/15/2026 07:30:00 AM, [address] [place] [address], Suite [facility], [place], [place], [phone], Provider Name:Joshua Sainz ier, 02/22/2026 09:30:00 AM, [address] [place] [address], [place] [address], [place], [place], [phone], Progress Notes * Kathy FREEMAN MDOB:1950 (73 yo F)Acc No.[id number]:04/11/2024 Patient: Kathy Anglin Provider: Yashira Gongora MD :1950 A ge:73 Y S ex:Female Date:04/11/2024 Address:[address] [place], [place] [phone] Subjective: * Chief Complaints: * 2 month/ must see ovarian cyst * HPI: S ymptom(s): patient is a 73 yo female here for 2 month follow up of hematuria work up. * ROS: G eneral/Constitutional: Denies C hills. D enies F atigue. D enies F ever. D enies H eadache. E NT: Patient denies d ecreased sense of smell , any loss of taste , sore throat. D enies S ore throat. R espiratory: Denies C ough. D enies S hortness of breath at rest. D enies S hortness of breath with exertion. G astrointestinal: Denies D iarrhea. D enies N ausea. M usculoskeletal: Patient denies m uscle aches. P eripheral Vascular: Patient denies r ed and blue toes. * Medical History: * Surgical History: * Hospitalization/Major Diagno stic Procedure: * Medications: T akingClobetasol Prop Oint-Peoria Tar 0.05 & 2.3 % Kit as directed Externally Ketoconazole 2 % Cream 1 application Externally QODLevothyroxine Sodium 100 MCG Tablet 1 tablet on an empty stomach in the morning Orally 4 TIMES a weekLevothyroxine Sodium 88 MCG Tablet 1 tablet on an empty stomach in the morning Orally 3 days a weekVitamin D 2000 UNIT Tablet 1 tablet Orally every other dayTaking Clobetasol Prop Oint-Peoria Tar 0.05 & 2.3 % Kit as directed Externally Taking Ketoconazole 2 % Cream 1 application Externally QODTaking Levothyroxine Sodium 100 MCG Tablet 1 tablet on an empty stomach in the morning Orally 4 TIMES a weekTaking Levothyroxine Sodium 88 MCG Tablet 1 tablet on an empty stomach in the morning Orally 3 days a weekTaking Vitamin D 2000 UNIT Tablet 1 tablet Orally every other dayNot-Taking/PRNLORazepam 0.5 MG Tablet 1 tablet as needed Orally every 12 hourNot-Taking/PRN LORazepam 0.5 MG Tablet 1 tablet as needed Orally every 12 hourUnknownmetroNIDAZOLE 0.75 % Cream 1 application to affected area Externally Twice a dayMedication List reviewed and reconciled with the patientUnknown metroNIDAZOLE 0.75 % Cream 1 application to affected area Externally Twice a dayMedication List reviewed and reconciled with the patient * Allergies: f ragrance in mycolog: iam sultana[Allergies Verified] Objective: * Vitals: H t: 62.00, Wt: 119, BMI:21.76, BP:134/76, Wt-k.98 weight is up 4 pounds since 02-11-24. * Examination: G eneral Examination: GENERAL APPEARANCE: a lert, well hydrated, in no distress.? HEAD: n ormocephalic. SKIN: g ood turgor. HEART: r egular rate and rhythm , no murmurs, rubs, gallops. LUNGS: n o wheezes, rales, rhonchi , good air movement , clear to auscultation bilaterally. Assessment: * Assessment: 1. H istory of hematuria - Z87.448 2 . C yst of ovary, unspecified laterality - N83.209?3. I rritable bowel syndrome with diarrhea - K58.0 4 . I odine hypothyroidism - E01.8 Plan: * Treatment: 2. C yst of ovary, unspecified laterality Notes: bring the results of the cat scan to her scrap worker 3. I rritable bowel syndrome with diarrhea Notes: going to see dr upton next week * Procedure Codes: * Follow Up: 3 Months * * Sign off status: Completed true * Provider: Yashira Gongora MD Date: 0 04/11/2024 Generated for Alfonzo christianson/Poncho/Chingitting on: 1 05/23/2024 02:52 PM EST History and Physical Notes * HPI (History of Present Illness) Category Sub-Category Detail Notes Category Not es Symptom(s) patient is a 73 yo female here for 2 month follow up of hematuria work up Examination Category Sub-Category Detail Notes Category Not es General Examination GENERAL APPEARANCE: alert, w ell hydrated, in no distress HEAD: normocephalic HEART: regular rate and rhy thm , no murmurs, rubs, gallops LUNGS: no wheezes, rales, r honchi , good air movement , clear to auscultation bilaterally SKIN: good turgor
--- OUTSIDE RECORDS SUMMARY | 2024-05-11 08:00 | XMS_ITS ---
Author Organization [facility] Address [address] [place] [phone] Care Team Providers Care Admin Prog Coord Name Role Phone Rolan TEJADA, Joshua Primary Care Provider Jake Dunaway Jr REASON FOR VISIT change in bwl habits, heme positive stools Encounters Encounter Location Date Provider Diagnosis [facility] [address] [place] [phone] 05/11/2024 Jake Zhou Jr Colon polyps K63.5 and Change in bowel habits R19.4 Assessments Encounter Date Diagnosis (ICD Code) Assessment Notes Treatment Notes Treatment Clinical Notes Section Notes 05/11/2024 Colon polyps (ICD-10 - K63.5) 05/11/2024 Change in bowel habits (ICD-10 - R19.4) Plan Of Treatment No Information Progress Notes * JOHNNY FREEMAN MDOB:1950 (74 yo F)Acc No.[id number]:05/11/2024 COLON WITH MAC Patient: JOHNNY BLAS Provider: Ori Zhou MD :1950 A ge:73 Y S ex:Female Date:05/11/2024 Address:[address] [place] [address] Pcp:Joshua Gongora MD Subjective: * Chief Complaints: * C hange in bwl habits, heme positive stools Assessment: * Assessment: 1. C olon polyps - K63.5 (Primary) 2 . C hange in bowel habits - R19.4 Plan: * Procedure Codes: 4 5385 LESION REMOVAL [id number] COLONOSCOPY AND BIOPSY, Modifiers: 59 0529F INTRVL 3+YRS PTS CLNSCP DOCD Billing Information: * Procedure Codes: 51397 LESION REMOVAL COLONOSCOPY. 13297 COLONOSCOPY AND BIOPSY. Modifiers: 59 0529F INTRVL 3+YRS PTS CLNSCP DOCD. * The named appointment provid er may or may not be the originator of this progress note, and it is not deemed complete until electronically signed by the appointment provider. Sign off status: Pending * Provider: Ori Zhou MD Date: 0 05/11/2024 Generated for Alfonzo chrisitanson/Poncho/Garlandsmitting on: 1 05/23/2024 02:52 PM EST
--- OUTSIDE RECORDS SUMMARY | 2024-07-11 02:30 | XMS_ITS ---
Author Organization Joshua Gongora MD Address [address] [place] [phone] Care Team Providers Care Medical Affairs Manager Name Role Phone Joshua Gongora Primary Care Provider Results Component Value Reference Range Notes TSH reflex Free T4 Reviewed date:07/11/2024 12:41:15 PM Interpretation: Performing Lab:[facility], [address] [place] [phone] Notes/Report: TSH reflex Free T4 1.40 0.32-4.0 uIU/mL REASON FOR VISIT TSH REFLEX FREE T 4 Encounters Encounter Location Date Provider Diagnosis Joshua Gongora MD [address] [place] [phone] 07/11/2024 Joshua Gongora 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 History of hematuria Z87.448 Assessments Encounter Date Diagnosis (ICD Code) Assessment Notes Treatment Notes Treatment Clinical Notes Section Notes 07/11/2024 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) 07/11/2024 History of hematuria (ICD-10 - Z87.448) Plan Of Treatment Next Appt Details Provider Name:Joshua Sainz ier, 08/18/2025 09:00:00 AM, [address] [place] [address], [address], [phone], Provider Name:Joshua Sainz ier, 02/15/2026 07:30:00 AM, [address] [place] [address], [phone], Provider Name:Joshua Sainz ier, 02/22/2026 09:30:00 AM, [address] [place] [address], [phone], Progress Notes * Kathy FREEMAN MDOB:1950 (74 yo F)Acc No.[id number]:07/11/2024 Progress Note Patient: Kathy BLAS Provider: Yashira Gongora MD :1950 A ge:73 Y S ex:Female Date:07/11/2024 Address:[address] [place], [place] [phone] Subjective: * Chief Complaints: * 1 . TSH REFLEX FREE T 4. * Medical History: Objective: * Vitals: Assessment: * Assessment: 1. 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 H istory of hematuria - Z87.448 Plan: * Treatment: * Procedure Codes: 3 6415 VENIPUNCT, ROUTINE* * * The named appointment provid er may or may not be the originator of this progress note, and it is not deemed complete until electronically signed by the appointment provider. Sign off status: Pending * Provider: Yashira Gongora MD Date: 0 07/11/2024 Generated for Alfonzo christianson/Poncho/Yen on: 1 05/23/2024 02:52 PM EST
--- OUTSIDE RECORDS SUMMARY | 2024-07-28 08:30 | XMS_ITS ---
Author Organization Joshua Gongora MD Address [address] [place] [phone] Care Team Providers Care Quality Control Engineering Technician Name Role Phone Joshua Gongora Primary Care Provider Allergies Allergen (clinical drug ingredient) Drug/Non Drug Allergy documented on EMR Reaction Allergy Type Onset Date Status Hair dye hair dye (uncoded) Unknown Allergy A ctive fragrance in mycolog (uncoded) blister Allergy Active REASON FOR VISIT 3 MO F/U Medications Medication SIG (Take, Route, Frequency, Duration) Notes Start Date End Date Status Ketoconazole 2 % 1 application Externally QOD Active Vitamin D 2000 UNIT 1 tablet Orally ever y other day Active Levothyroxine Sodium 100 MCG 1 tablet on an empty stomach in the morning Orally 2 times per week for 90 days Active Levothyroxine Sodium 88 MCG 1 tablet on an empty stomach in the morning Orally 5 days a week for 90 days Active Hyoscyamine Sulfate ER 0.375 MG 1 tablet Orally once per day for 30 days 07/28/2024 Active LORazepam 0.5 MG 1 tablet as needed Orally every 12 hour for 7 days 10/12/2017 Not-Taking metroNIDAZOLE 0.75 % 1 application to affected area Externally Twice a day Active Clobetasol Prop Oint-[place] Tar 0.05 & 2.3 % as directed Externally A ctive Problems Problem Type SNOMED Code ICD Code Onset Dates Problem Status W/U Status Risk Notes Problem Irritable bowel (55941852) Irritable bowel (K58.9) Active confirmed Vital Signs Blood pressure systolic 122 mm Hg 07/29/19 25 Blood pressure diastolic 80 mm Hg 025 Height 62.00 in 07/28/2024 Weight 116 lbs 07/28/2024 BMI 21.21 kg/m2 07/28/2024 weight is down 3 pounds [facility] 04-11-24 Encounters Encounter Location Date Provider Diagnosis Joshua Gongora MD [address] [place], [place] [phone] 07/28/2024 Joshua Gongora Ovarian cyst N83.209 and Irritable bowel K58.9 Assessments Encounter Date Diagnosis (ICD Code) Assessment Notes Treatment Notes Treatment Clinical Notes Section Notes 07/28/2024 Ovarian cyst (ICD-10 - N83.209) followed by Diversity Manager 07/28/2024 Irritable bowel (ICD-10 - K58.9) patient verbalized understanding of medication and directions for use Plan Of Treatment Medication Medication Name Sig Start Date Stop Date Notes Hyoscyamine Sulfate ER 0.375 MG 1 tablet Orally once per day for 30 days 07/28/2024 Treatment Notes Assessment Notes Ovarian cyst followed by Diversity Manager Irritable bowel patient verbalized u nderstanding of medication and directions for use Next Appt Details Follow Up: 4 Weeks, Reason: Provider Name:Joshua small, 08/18/2025 09:00:00 AM, [address], [address], [place], [place], [phone], Provider Name:Joshua small, 02/15/2026 07:30:00 AM, [address], [address], [place], [place], [phone], Provider Name:Joshua Sainz ier, 02/22/2026 09:30:00 AM, [address], [address], [place], [phone], Progress Notes * Kathy FREEMAN MDOB:1950 (73 yo F)Acc No.[id number]:07/28/2024 Progress Notes Patient: Kathy BLAS Teresa Provider: Yashira Gongora MD :1950 A ge:73 Y S ex:Female Date:07/28/2024 Address:[address] [place] [address] [place], [place] Subjective: * Chief Complaints: * 3 MO F/U * HPI: S ymptom(s): patient is a 73 yo female here for 3 month follow up visit/ doing well/ had us of ovarys at clinical training coordinator and found multiple cysts and had a 7 mm nodule in the cyst. * ROS: G eneral/Constitutional: Denies C hills. D enies F atigue. D enies F ever. D enies H eadache. E NT: Denies S ore throat. R espiratory: Denies C ough. D enies S hortness of breath at rest. D enies S hortness of breath with exertion. G astrointestinal: Patient complaining of h as some urgency of bowels at times. . D enies D iarrhea. D enies N ausea. * Medical History: * Surgical History: * Hospitalization/Major Diagno stic Procedure: * Medications: T akingClobetasol Prop Oint-[place] Tar 0.05 & 2.3 % Kit as directed Externally Ketoconazole 2 % Cream 1 application Externally QOD Vitamin D 2000 UNIT Tablet 1 tablet Orally every other day Levothyroxine Sodium 100 MCG Tablet 1 tablet on an empty stomach in the morning Orally 2 times per week Levothyroxine Sodium 88 MCG Tablet 1 tablet on an empty stomach in the morning Orally 5 days a week metroNIDAZOLE 0.75 % Cream 1 application to affected area Externally Twice a day Taking Clobetasol Prop Oint-[place] Tar 0.05 & 2.3 % Kit as directed Externally Taking Ketoconazole 2 % Cream 1 application Externally QOD Taking Vitamin D 2000 UNIT Tablet 1 tablet Orally every other day Taking Levothyroxine Sodium 100 MCG Tablet 1 tablet on an empty stomach in the morning Orally 2 times per week Taking Levothyroxine Sodium 88 MCG Tablet 1 tablet on an empty stomach in the morning Orally 5 days a week Taking metroNIDAZOLE 0.75 % Cream 1 application to affected area Externally Twice a day Not-Taking/PRNLORazepam 0.5 MG Tablet 1 tablet as needed Orally every 12 hour Medication List reviewed and reconciled with the patientNot-Taking/PRN LORazepam 0.5 MG Tablet 1 tablet as needed Orally every 12 hour Medication List reviewed and reconciled with the patient * Allergies: f ragrance in mycolog: iam sultana[Allergies Verified] Objective: * Vitals: H t: 62.00, Wt: 116, BMI:21.21, BP:122/80, Wt-k.62. weight is down 3 pounds since 04-11-24. * P ast Orders: L ab:TSH reflex Free T4 (Order Date - 07/11/2024) (Collection Date & Time - 07/11/2024 07:30 AM) Value Reference Range TSH reflex Free T4 1.40 0.32-4.0 - uIU/mL * Examination: G eneral Examination: GENERAL APPEARANCE: a lert, well hydrated, in no distress.? HEAD: n ormocephalic. SKIN: g ood turgor. HEART: n o murmurs, rubs, gallops, regular rate and rhythm.? LUNGS: n o wheezes, rales, rhonchi, good air movement, clear to auscultation bilaterally. ABDOMEN: n o rebound tenderness, no organomegaly. ? Assessment: * Assessment: 1. I rritable bowel - K58.9 (Primary) 2 . O varian cyst - N83.209 ? Plan: * Treatment: 2. O varian cyst Notes: followed by Diversity Manager * Procedure Codes: * Follow Up: 4 Weeks * * Sign off status: Completed true * Provider: Yashira Gongora MD Date: 0 07/28/2024 Generated for Alfonzo christianson/Poncho/Chingitting on: 1 05/23/2024 02:54 PM EST History and Physical Notes * HPI (History of Present Illness) Category Sub-Category Detail Notes Category Not es Symptom(s) patient is a 73 yo female here for 3 month follow up visit/ doing well/ had us of ovarys at clinical training coordinator and found multiple cysts and had a 7 mm nodule in the cyst Examination Category Sub-Category Detail Notes Category Not es General Examination GENERAL APPEARANCE: alert, w ell hydrated, in no distress HEAD: normocephalic HEART: no murmurs, rubs, ga llops, regular rate and rhythm LUNGS: no wheezes, rales, r honchi, good air movement, clear to auscultation bilaterally ABDOMEN: no rebound tendernes s, no organomegaly SKIN: good turgor
--- OUTSIDE RECORDS SUMMARY | 2024-08-05 08:27 | XMS_ITS ---
Author Organization Joshua Gongora MD Address [address] [place] [phone] Care Team Providers Care Balance Wheel Facer Name Role Phone Joshua Gongora Primary Care Provider [phone] Encounters Encounter Location Date Provider Diagnosis Joshua Gongora MD [address] [place] [phone] 08/05/2024 Joshua Gongora Plan Of Treatment Next Appt Details Provider Name:Joshua small, 08/18/2025 09:00:00 AM, [address], [address], [place], [place], [phone], Provider Name:Joshua small, 02/15/2026 07:30:00 AM, [address], [address], [place], [phone], Provider Name:Joshua Sainz ier, 02/22/2026 09:30:00 AM, [address], [address], [place], [phone], Progress Notes * Kathy FREEMAN MDOB:1950 (73 yo F)Acc No.[id number]:08/05/2024 Patient: Kindra Kathy DOOLEY :1950 A ge:73 Y S ex:Female Address:[address] [place] [address], [facility] [place] [address] * true * Date: Generated for Alfonzo christianson/Poncho/Garlandsmitting on: 05/23/2024 02:53 PM EST
--- OUTSIDE RECORDS SUMMARY | 2024-08-26 05:15 | XMS_ITS ---
Author Organization Joshua Gongora MD Address [address] [place] [phone] Care Team Providers Care Traffic Control Technician Name Role Phone Joshua Gongora Primary Care Provider [phone] Allergies Allergen (clinical drug ingredient) Drug/Non Drug [...] Provider Speciality Internal M edicine Referred Provider [facility] RELIABILITY ENGINEER [employer], [facility] RELIABILITY ENGINE[employer] Referred Provider Specialty OB - Gynecol ogy General Notes SurendraCelinaEleonora 0 08/26/2024 10:49:58 AM >send US info faxed phone [phone], Eleonora Agosto 09/09/2024 02:14:26 PM > was told to call back in 2 weeks after 09-19, Eleonora Agosto 09/29/2024 03:23:08 PM > info was refaxed on 09-26-24 was told to refax to [phone] they have a wait list until the [...] 1 application Externally QOD Active Clobetasol Prop Oint-[place] Tar 0.05 & 2.3 % as directed [...] Location Date Provider Diagnosis Joshua Gongora MD [address] [place] [address] [address] [place], [place] [phone] 08/26/2024 Joshua Gongora Ovarian cyst N83.209 and [...] second opinion Irritable bowel syndrome with diarrhea p atblayne has not started meds yet. have explained the way to use them. if she has symptoms to take for a few days and then stop to see how she is doing Other is going Referrals Referral Date Details 08/26/2024 08/26/2024, Ovarian cyst eval and treat for a second opinion, [facility] RELIABILITY ENGINEER Group [facility] RELIABILITY ENGINEER Group [facility] Next Appt Details Provider Name:Joshua small, 08/18/2025 09:00:00 AM, [address] [place] [address], [address], [phone], Provider Name:Joshua small, 02/15/2026 07:30:00 AM, [address] [place] [address], [place] [address], [place], [place], [phone], Provider Name:Joshua small, 02/22/2026 09:30:00 AM, [address] [place] [address], [place] [address], [place], [place], [phone], Progress Notes * Kathy FREEMAN MDOB:1950 (73 yo F)Acc No.[id number]:08/26/2024 Progress Notes Patient: Kathy BLAS Provider: Yashira Gongora MD :1950 A ge:73 Y S ex:Female Date:08/26/2024 Address:[address] [place] [address], [facility] [id number] Subjective: * Chief Complaints: * 1 month [...] stic Procedure: * Medications: T akingClobetasol Prop Oint-[place] Tar 0.05 & 2.3 % Kit as [...] Externally Twice a day Taking Clobetasol Prop Oint-[place] Tar 0.05 & 2.3 % Kit as [...] MD Date: 0 08/26/2024 Generated for Alfonzo christianson/Poncho/Garlandsmitting on: 1 05/23/2024 02:53 PM EST History and Physical [...] Referred Provider Not es 08/26/2024 Joshua Gongora [facility] RELIABILITY ENGINEER Group [facility], [facility] RELIABILITY ENGINEER Group [facility] Ovarian cyst eval and treat for a second opinion
--- OUTSIDE RECORDS SUMMARY | 2025-02-10 02:00 | XMS_ITS ---
Author Organization Joshua Gongora MD Address [address] [place] [phone] Care Team Providers Care Lead Handler Name Role Phone Joshua Gongora Primary Care Provider [phone] Results Component Value Reference Range Notes Complete Blood Count Auto Di ff Reviewed date:02/10/2025 04:10:13 PM Interpretation: Performing Lab:[facility], [address] [place] [phone] Notes/Report: White Blood Count 6.9 4.8-10.8 X10*3/uL [...] NRBC Abs Auto 0.000 0.0-0.012 X10*3/uL Comprehensive [place]. Panel Fa st Reviewed date:02/10/2025 04:08:53 PM Interpretation: Performing Lab:[facility], [address] [place] [phone] Notes/Report: Sodium 140 135-145 mmol/L Potassium 3.6 [...] 3.5-5.0 g/dL Alkaline Phosphatase 65 39-117 U/L Lipid Panel Reviewed date:02/10/2025 02:09:38 PM Interpretation: Performing Lab:[address] [phone] Notes/Report: Triglycerides 87 <150 mg/dL Desirable Triglyceride: [...] liver disease. Vitamin D 25-OH Total Reviewed date:02/10/2025 04:01:32 PM Interpretation: Performing Lab:[address] [phone] Notes/Report: Vitamin D 25-OH Total 96.2 >30 [...] as LC-MS/MS. UA ClnCatch+Micro w/rflx Cul t Reviewed date:02/10/2025 04:10:35 PM Interpretation: Performing Lab:[facility], [address] [place] [phone] Notes/Report: Urine, Clean Catch Color Urine Yellow Appearance Urine Clear PH 7.0 5.0-9.0 Glucose Urine UA Negative Negative mg/dL Urine Blood Trace Negative Specific [place] - Urine <= 1.005 1.005-1.025 Urine Protein Negative Neg-Trace mg/dL Urine Ketones Negative Negative mg/dL Nitrite Urine Negative Negative Leukocyte Esterase Urine Negative Negative RBC Urine 0-2 0-2 /HPF WBC Urine 0-5 0-5 /HPF Squamous Epithelial Cell Urine 0-2 0-2 /HPF Bacteria Urine None Seen None Seen Hyaline Casts Urine 0-2 0-2 /LPF REASON FOR VISIT yearly fasting labs Immunizations Vaccine Route Administration Date Status Comme nts Influenza High Dose IM Intramuscular 02/10/2025 Administer ed Encounters Encounter Location Date Provider Diagnosis Joshua Gongora MD [address] [facility] [address] [place], [place] [phone] 02/10/2025 Joshua Gongora 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 [...] Provider Name:Joshua Sainz ier, 08/18/2025 09:00:00 AM, [address], [address], [place], [place], [phone], Provider Name:Joshua Sainz ier, 02/15/2026 07:30:00 AM, [address], [address], [place], [place], [phone], Provider Name:Joshua Sainz ier, 02/22/2026 09:30:00 AM, [address], [address], [place], [phone], Progress Notes * Kathy FREEMAN MDOB:1950 (74 yo F)Acc No.[id number]:02/10/2025 Progress Note Patient: Kathy BLAS Provider: Yashira Gongora MD :1950 A ge:74 Y S ex:Female Date:02/10/2025 Address:[address] [place] [address] Subjective: * Chief Complaints: * 1 . [...] - 02/10/2025 07:00 AM) L AB: Comprehensive [place]. Panel Fast (Collection Date & Time - [...] - 02/10/2025 07:00 AM) L AB: Comprehensive [place]. Panel Fast (Collection Date & Time - [...] * Procedure Codes: 3 6415 VENIPUNCT, ROUTINE*, 77657 FLU VACC PRSV FREE INC ANTIG, G0008 ADMN FLU VAC NO FEE SCHED SAME DAY * * The named appointment provid er may or may not be the originator of this progress note, and it is not deemed complete until electronically signed by the appointment provider. Sign off status: Pending * Provider: Yashira Gongora MD Date: 1 04/12/2024 Generated for Alfonzo christianson/Poncho/Chingitting on: 05/23/2024 02:53 PM EST
--- OUTSIDE RECORDS SUMMARY | 2025-02-17 03:30 | XMS_ITS ---
Author Organization Joshua Gongora MD Address [address] [place] [phone] Care Team Providers Care Kiln Tester Name Role Phone Joshua Gongora Primary Care Provider [phone] Allergies Allergen (clinical drug ingredient) Drug/Non Drug Allergy documented on EMR Reaction Allergy Type Onset Date Status Hair dye hair dye (uncoded) Unknown Allergy A ctive fragrance in mycolog (uncoded) blister Allergy Active Results Component Value Reference Range Notes TSH reflex Free T4 Reviewed date:02/17/2025 12:17:20 PM Interpretation: Performing Lab:[facility], [address] [place] [phone] Notes/Report: TSH reflex Free T4 1.68 0.32-4.0 uIU/mL REASON FOR VISIT comp visit Medications Medication SIG (Take, Route, Frequency, Duration) Notes Start Date End Date Status Ketoconazole 2 % 1 application Externally QOD Active Vitamin D 2000 UNIT 1 tablet Orally ever y other day Active metroNIDAZOLE 0.75 % 1 application to affected area Externally Twice a day Active LORazepam 0.5 MG 1 tablet as needed Orally every 12 hour for 7 days 10/12/2017 Not-Taking Hyoscyamine Sulfate ER 0.375 MG 1 tablet Orally once per day for 30 days 07/28/2024 Not-Taking Levothyroxine Sodium 100 MCG 1 tablet on an empty stomach in the morning Orally 2 times per week Active Clobetasol Prop Oint-Brooks Tar 0.05 & 2.3 % as directed Externally A ctive Levothyroxine Sodium 88 MCG 1 tablet on an empty stomach in the morning Orally 5 days a week Active Social History Tobacco Use: Social History Observation [...] electronic cigarette Vital Signs Blood pressure systolic 142 mm Hg 02/18/20 25 Blood pressure diastolic 80 mm Hg 025 Height 62.00 in 02/17/2025 Weight 118 lbs 02/17/2025 BMI 21.58 kg/m2 02/17/2025 weight is up 2 pounds since 08-26-24 Encounters Encounter Location Date Provider Diagnosis Joshua Gongora MD [address] [phone] 02/17/2025 Joshua Gongora 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 ; History of hematuria Z87.448 ; Pure hypercholesterolemia E78.00 ; Thyroid nodule E04.1 ; Vitamin D deficiency E55.9 and Depression screening Z13.31 Assessments Encounter Date Diagnosis (ICD Code) Assessment Notes Treatment Notes Treatment Clinical Notes Section Notes 02/17/2025 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, will continue current regiment 02/17/2025 History of hematuria (ICD-10 - Z87.448) stable, will continue to monitor 02/17/2025 Pure hypercholesterolemia (ICD-10 - E78.00) not high enough to treat, will continue to monitor 02/17/2025 Thyroid nodule (ICD- 10 - E04.1) do us every 02/17/2025 Vitamin D deficiency (ICD-10 - E55.9) stable, will continue current regiment 02/17/2025 Depression screening (ICD-10 - Z13.31) negative screen Plan Of Treatment Medication Medication Name Sig Start Date Stop Date Notes Vitamin D 2000 UNIT 1 tablet Orally ever y other day Levothyroxine Sodium 100 MCG 1 tablet on an empty stomach in the morning Orally 2 times per week Levothyroxine Sodium 88 MCG 1 tablet on an empty stomach in the morning Orally 5 days a week Treatment Notes Assessment Notes Iodine hypothyroidism stable, will helen nue current regiment History of hematuria stable, will contin ue to monitor Pure hypercholesterolemia not high enoug h to treat, will continue to monitor Thyroid nodule do us every Vitamin D deficiency stable, will contin ue current regiment Depression screening negative screen Next Appt Details Follow Up: 6 Months, Reason: Provider Name:Joshua small, 08/18/2025 09:00:00 AM, [address] [place] [address], [address], [phone], Provider Name:Joshua small, 02/15/2026 07:30:00 AM, [address] [place] [address], [address], [phone], Provider Name:Joshua small, 02/22/2026 09:30:00 AM, [address] [place] [address], [address], [phone], Progress Notes * Kathy FREEMAN MDOB:1950 (74 yo F)Acc No.[id number]:02/17/2025 Patient: Kathy BLAS Provider: Yashira Gongora MD :1950 A ge:74 Y S ex:Female Date:02/17/2025 Address:[address] [place] [address], [facility] Subjective: * Chief Complaints: * C omp visit * HPI: D epression Screening: PHQ-9 L [...] PHQ-9 found negative result, no follow-up needed. C ommunication Needs: Communication Needs D oes the patient have a hearing impairment N o, D oes the patient have a vision impairment? Y es, I f yes, what is the vision impairment? G lasses, D oes the patient have a cognition impairment? N o. F all Risk: History H ave you had any falls with injury in the past year? N o. S ILEANA Questions: SDOH Questions I n the past year have you been worried about losing housing? N o, I n the past year have you or any family members you live with been unable to get any of the following when it was really needed? Check all that apply: N one. S ymptom(s): patient is a 74 yo female here for visit with review of recent labs and follow up of chronic issues h ad visit with dr reed and is watching the cyst with another us in 6 months. * ROS: G eneral/Constitutional: Change in appetite d enies. C hills d enies. F ever d enies. O phthalmologic: Blurred vision d enies. D ischarge d enies. P ain d enies. E NT: Decreased hearing d enies. S ore throat d enies.?Swollen glands d enies. E ndocrine: Cold intolerance [...] U rinary incontinence D enies. M usculoskeletal: Painful joints d enies. W eakness d enies. ? S kin: Dry skin d enies. I tching d enies. D enies?Mole(s), changes in moles, new moles or any lesions of concern. D enies P hotosensitivity. R delphine d enies. N eurologic: Dizziness d enies. F ainting d enies. H eadache?denies. * Medical History: * Surgical History: * Hospitalization/Major Diagno stic Procedure: * Family History: F ather: 76 yrs, diagnosed with Hypertension, Diabetes. M other: 90 yrs.?1 sister(s) - healthy. [...] , I nterpretation N egative. M iscellaneous: C affeine: no. Children: no. Community involvements: yes. Exercise: yes, daily or at least 5 times per week walks 5 timesa week chair yoga. Home smoke detector use: yes. Housing: owning. Living with: alone. Marital status: single. Occupation: retired. Pets: none. U sing electronic cigarette. * Medications: T akingClobetasol Prop Oint-Brooks Tar 0.05 & 2.3 % Kit as [...] Externally Twice a day Taking Clobetasol Prop Oint-Brooks Tar 0.05 & 2.3 % Kit as [...] Objective: * Vitals: H t: 62.00, Wt: 118, BMI:21.58, BP:142/80, Repeat BP:120/78, Wt-k.52. weight is up 2 pounds since 08-26-24. * P ast Orders: L ab:Lipid Panel (Order Date - 02/10/2025) (Collection Date & Time - 02/10/2025 07:00 AM) Value Reference Range Triglycerides 87 <150 - mg/dL Cholesterol 245 H <200 - mg/dL LDL Cholesterol Calculated 138 H <100 - mg/dL HDL Cholesterol 90 >40 - mg/dL L ab:Hold Gold (Order Date - 02/10/2025) (Collection Date & Time - 02/10/2025 07:00 AM) Value Reference Range Hold Gold See Note - L ab:UA ClnCatch+Micro w/rflx Cult (Order Date - 02/10/2025) (Collection Date & Time - 02/10/2025 07:00 AM) Value Reference Range Color Urine Yellow - Appearance Urine Clear - PH 7.0 5.0-9.0 - Glucose Urine UA Negative Negative - mg/dL Urine Blood Trace A Negative - Specific Broadbent - Urine <= 1.005 1.005-1.025 - Urine Protein Negative Neg-Trace - mg/dL Urine Ketones Negative Negative - mg/dL Nitrite Urine Negative Negative - Leukocyte Esterase Urine Negative Negative - RBC Urine 0-2 0-2 - /HPF WBC Urine 0-5 0-5 - /HPF Squamous Epithelial Cell Urine 0-2 0-2 - /HP F Bacteria Urine None Seen None Seen - Hyaline Casts Urine 0-2 0-2 - /LPF L ab:Complete Blood Count Auto Diff (Order Date - 02/10/2025) (Collection Date & Time - 02/10/2025 07:00 AM) Value Reference Range White Blood Count 6.9 4.8-10.8 - X10*3/uL Red Blood Count 4.41 4.20-5.50 - X10*6/uL Hemoglobin 13.0 12.0-16.0 - g/dl Hematocrit 40.4 37.0-47.0 - % Mean Corpuscular Volume 91.6 80.0-98.0 - fL Mean Corpuscular Hemoglobin 29.5 27.0-33.0 - pg Mean Corpuscular HGB Conc 32.2 31.0-35.0 - g/ dl Red Cell Distribution Width 13.7 11.0-16.0 - % Platelet Count 222 160-400 - X10*3/uL Mean Platelet Volume 11.0 9.4-12.3 - fL Neutrophils Percent Auto 40.1 L 45-73 - % Imm Gran Pct Auto 0.3 0.0-0.4 - % Lymphocytes Percent Auto 43.7 H 20-40 - % Monocytes Percent Auto 9.3 2-11 - % Eosinophils Percent Auto 5.4 H 0-4 - % Basophils Percent Auto 1.2 0-2 - % NRBC Pct Auto 0.0 0.0-0.2 - /100WBC Neutrophils Absolute Auto 2.8 2.0-8.3 - x10* 3/uL Imm Gran Abs Auto 0.02 0.00-0.03 - X10*3/uL Lymphocytes Absolute Auto 3.0 1.2-4.9 - X10* 3/uL Monocytes Absolute Auto 0.6 0.1-1.2 - X10*3/ uL Eosinophils Absolute Auto 0.4 0.0-0.4 - X10* 3/uL Basophils Absolute Auto 0.1 0.0-0.2 - X10*3/ uL NRBC Abs Auto 0.000 0.0-0.012 - X10*3/uL L ab:Comprehensive Gibbon. Panel Fast (Order Date - 02/10/2025) (Collection Date & Time - 02/10/2025 07:00 AM) Value Reference Range Sodium 140 135-145 - mmol/L Bilirubin Total 0.4 0.0-1.0 - mg/dL Aspartate Amino Transferase 26 5-31 - U/L Alanine Aminotransferase 19 0-31 - U/L Total Protein 6.4 L 6.5-8.0 - g/dL Albumin Level 3.9 3.5-5.0 - g/dL Alkaline Phosphatase 65 39-117 - U/L Potassium 3.6 3.3-5.1 - mmol/L Chloride 105 96-108 - mmol/L Carbon Dioxide 27 22-29 - mmol/L Anion Gap 12 12-20 - Blood Urea Nitrogen 12 9-16 - mg/dL Creatinine 0.52 0.5-1.4 - mg/dL Estimated Glomerular Filt Rate > 60 - Glucose Fasting 77 60-99 - mg/dL Calcium 9.0 8.4-10.2 - mg/dL L ab:Vitamin D 25-OH Total (Order Date - 02/10/2025) (Collection Date & Time - 02/10/2025 07:00 AM) Value Reference Range Vitamin D 25-OH Total 96.2 >30 - ng/mL * Examination: G eneral Examination: GENERAL APPEARANCE: [...] LUNGS: c lear to auscultation bilaterally. BREASTS: d one by thaw shed heater tender. ABDOMEN: s oft, nontender, nondistended, bowel sounds present, normal, no organomegaly , no masses palpable. RECTAL EXAM: d one by thaw shed heater tender. FEMALE GENITOURINARY: d one by thaw shed heater tender. EXTREMITIES: n o clubbing, cyanosis, or edema. NEUROLOGIC: n onfocal, motor strength normal upper and lower extremities, sensory exam intact. Assessment: * Assessment: 1. 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 H istory of hematuria - Z87.448 3 . P ure hypercholesterolemia - E78.00 4 . T hyroid nodule - E04.1 5 . V itamin D deficiency - E55.9 6 . D epression screening - Z13.31 Plan: * Treatment: 2. H istory of hematuria Notes: stable, will continue to monitor 3. P ure hypercholesterolemia Notes: not high enough to treat, will continue to monitor 4. T hyroid nodule Notes: do us every 5. V itamin D deficiency Continue Vitamin D Tablet, 2000 UNIT, 1 tablet, Orally, every other day. Notes: stable, will continue current regiment 6. D epression screening Notes: negative screen * Procedure Codes: 3 6415 VENIPUNCT, ROUTINE* * Follow Up: 6 Months * * Sign off status: Completed true * Provider: Yashira Gongora MD Date: 1 04/19/2024 Generated for Alfonzo christianson/Poncho/Chingitting on: 05/23/2024 02:55 PM EST History and Physical Notes * HPI (History of Present Illness) Category Sub-Category Detail Notes Category Not es Symptom(s) patient is a 74 yo female here for visit with review of recent labs and follow up of chronic issues had visit with dr reed and is watching the cyst with another us in 6 months Depression Screening PHQ-9 Little inte rest or pleasure in doing things: Not at all Feeling down, depressed, or hopeless: No t [...] Have you had any falls with injury in the past year?: No Communication Needs Communication Needs Does [...] no clubbing, cyanosi s, or edema BREASTS: done by thaw shed heater tender RECTAL EXAM: done by thaw shed heater tender FEMALE GENITOURINARY: done by thaw shed heater tender ORAL CAVITY: mucosa moist
--- OUTSIDE RECORDS SUMMARY | 2025-02-17 04:31 | XMS_ITS ---
Author Organization Joshua Gongora MD Address [address] [place] [phone] Care Team Providers Care Optical Instruments Supervisor Name Role Phone RolanAlejandron Primary Care Provider [phone] REASON FOR VISIT ? to book Thyroid U/S Encounters Encounter Location Date Provider Diagnosis Joshua Gongora MD [address] [place] [phone] 02/17/2025 Joshua Gongora Thyroid nodule E04.1 Assessments Encounter Date Diagnosis (ICD Code) Assessment Notes Treatment Notes Treatment Clinical Notes Section Notes 02/17/2025 Thyroid nodule (ICD-10 - E04.1) Plan Of Treatment Pending Test Test Name Order Date US THYROID 02/17/2025 Next Appt Details Provider Name:Joshua Sainz ier, 08/18/2025 09:00:00 AM, [address], [address], [place], [place], [phone], Provider Name:Joshua Sainz ier, 02/15/2026 07:30:00 AM, [address], [address], [place], [place], [phone], Provider Name:Joshua Sainz ier, 02/22/2026 09:30:00 AM, [address], [address], [place], [phone], Progress Notes * Kathy FREEMAN MDOB:1950 (74 yo F)Acc No.[id number]:02/17/2025 Patient: Kindra DOOLEYKathy Teresa :1950 A ge:74 Y S ex:Female Address:[address] [place] [address] Subjective: * Chief Complaints: * ? to book Thyroid U/S * Medical History: * Surgical History: * Hospitalization/Major Diagno stic Procedure: * Medications: Objective: * Vitals: * Physical Examination: Assessment: * Assessment: 1. T hyroid nodule - E04.1 Plan: * Treatment: * Procedure Codes: * true * Date: Generated for Alfonzo christianson/Poncho/eTforestsmitting on: 05/23/2024 02:54 PM EST
--- OUTSIDE RECORDS SUMMARY | 2025-03-22 14:52 | XMS_ITS | Patient Health Record ---
Author Organization [facility] Address [address] [address] Care Team Providers Care Care Transport Nurse Name Role Phone Joshua Gongora MD Primary Care Provider Bereket Ibarra Unavailable [phone] Allergies Allergen (clinical drug ingredient) Drug/Non Drug Allergy documented on EMR Reaction Allergy Type Onset Date Status Mycolog creme, hair dye (uncoded) Unknown Allergy Active Adhesive Tape Unknown Drug Allergy Act alix Reason For Referral No Information Medications Medication SIG (Take, Route, Frequency, Duration) Notes Start Date End Date Status Clobetasol Prop Oint-[place] Tar Active Levothyroxine Sodium Active metroNIDAZOLE Not-Bon colon Social History Tobacco use other than smoking: Question Answer Notes Are you an other tobacco user? No Problems Problem Type SNOMED Code ICD Code Onset Dates Problem Status W/U Status Risk Notes Problem Acquired hallux valgus (05661399) Hallux valgus (acquired), left foot (M20.12) Active confirmed Problem Acquired hallux valgus (58111703) Hallux valgus (acquired), right foot (M20.11) Active confirmed Plan Of Treatment Pending Test Test Name Order Date X ray : Foot, left 2V 10/04/2014 X ray : Foot, right 2V 10/04/2014 Insurance Providers Payer Name Payer Address Payer Phone Subscriber Number Group Number Insured Name Patient Relationship to Insured Coverage Start Date Coverage End Date [employer] (On License Of [facility]) [address] [place] [address] [id number] Kathy Su Self - patient is the insured Medical (General) History Medical History History ICD Code Back,Hip,and Knee pain Headaches Hiatal hernia Thyroid disorder Chicken pox Measles
--- OUTSIDE RECORDS SUMMARY | 2025-03-22 14:53 | XMS_ITS | Clinical Summary ---
Author Organization [facility] Address [address] [place] [address] Phone Care Team Providers Care Resizer Operator Name Role Phone Joshua Gongora MD Primary [...] her the option for second opinion with senior linux unix administrator oncologist; with knowledge that these referrals generally [...] lesions or keratosis Continue regimen, yearly exam Immunizations Immunization Administration Dates Next Due INFLUENZA, [...] Procedure Name Priority Date/Time Associated Diagnosis Comments [facility] MAMMOGRAPHY Routine 10/09/2022 BD DXA SPINE [...] of osteopenia and representing a 4% decline [id number] Total bone mineral density in the L2-L4 vertebral bodies was calculated at0.897 gm/cm2 with a T-score of -1.7 and Z-score of 0.4, falling within theWHO classification of osteopenia, without significant interval change [id number]. Total bone mineral density in the right hip was calculated at 0.669 gm/pt2pybc a T-score of -2.2 and Z-score of [...] Maintenance Insurance MEDICARE PART A & B Member Subscriber Plan / Payer (Ef fective 2016-Present) Name:GeorgesKathy barlow Member ID:[id number] Relation to Subscriber:Self Name:GeorgesKathy Subscriber ID:[id number] Payer ID:[id number] Group ID:Not on file Type:Medicare Address: [address] [facility] [address] [place] [phone] [facility] MEDICARE SUPPLEMENT MEDICARE PART A & [place] [address] [place] [address] [employer] MEDICARE SUPPLEMENT MEDICARE PART A & B [facility] EX[employer]ION MEDICARE SUPPLEMENT MEDICARE PART A & B [employer]ION MEDICARE SUPPLEMENT MEDICARE PART A & B [facility] [employer] MEDICARE SUPPLEMENT MEDICARE PART A & B [facility] EXTENSION MEDICARE SUPPLEMENT MEDICARE PART A & B [id number] [place] [address] [employer] MEDICARE SUPPLEMENT MEDICARE PART A & B [facility] EXTENSION MEDICARE SUPPLEMENT MEDICARE PART A & B [employer] [facility] EXTENSION MEDICARE SUPPLEMENT Care Teams Resizer Operator Relationship Specialty Start Date End Date Joshua Gongora MD [address] [place] [address] [place] [address] PCP - General 04/09/17 Additional Source Comments The information contained in this document represents components of the legal health record. It is not the complete legal health record.[facility]
--- OUTSIDE RECORDS SUMMARY | 2025-03-22 14:53 | XMS_ITS | Encounter Summary ---
Author Organization [facility] Address [address] [place] [address] Phone Care Team Providers Care Men'S Custom Hair Piece Consultant Name Role Phone Joshua Gongora MD Primary Care Provider Encounter Details Date Type Department Care Team (Late st Contact Info) Description 06/09/2019 Ancillary Orders Virtual Department [address] [place] [address] Joshua Gongora MD [address] [place] [address] [place] [address] Osteopenia, unspecified location; Osteopenia of left hip; [...] of osteopenia and representing a 4% decline [id number] Total bone mineral density in the L2-L4 vertebral bodies was calculated at0.897 gm/cm2 with a T-score of -1.7 and Z-score of 0.4, falling within theWHO classification of osteopenia, without significant interval change [id number]. Total bone mineral density in the right hip was calculated at 0.669 gm/qs1kwyl a T-score of -2.2 and Z-score of [...] location documented in this encounter Care Teams Men'S Custom Hair Piece Consultant Relationship Specialty Start Date End Date Joshua Gongora MD [address] [place] [address] [place] [address] PCP - General 04/09/17 documented as of this encounter Additional Source Comments The information contained in this document represents components of the legal health record. It is not the complete legal health record.[facility]
--- OUTSIDE RECORDS SUMMARY | 2025-03-22 14:53 | XMS_ITS | Encounter Summary ---
Author Organization [facility] Address [address] [place] [address] Phone Care Team Providers Care Cooling System Operator Name Role Phone Joshua Gongora MD Primary Care Provider Encounter Details Date Type Department Care Team (Late st Contact Info) Description 06/08/2019 Ancillary Orders Virtual Department [address] [place] [address] Joshua Gongora MD [address] [place] [address] [place] [address] Osteopenia, unspecified location Social History Tobacco Use [...] location documented in this encounter Care Teams Cooling System Operator Relationship Specialty Start Date End Date Joshua Gongora MD [address] [place] [address] [place] [address] PCP - General 04/09/17 documented as of this encounter Additional Source Comments The information contained in this document represents components of the legal health record. It is not the complete legal health record.[facility]
--- OUTSIDE RECORDS SUMMARY | 2025-03-22 14:53 | XMS_ITS | Encounter Summary ---
Author Organization [facility] Address [address] [place] [address] Phone Care Team Providers Care Cook Chili Name Role Phone Joshua Gongora MD Primary Care Provider Encounter Details Date Type Department Care Team (Late st Contact Info) Description 10/12/2017 Ancillary Orders Virtual Department [address] [place] [address] Joshua Gongora MD [address] [place] [address] [place] [address] Osteopenia, unspecified location Social History Tobacco Use [...] the right hip was calculated at 0.723 gm/tj4tddk a T-score of -1.8 falling within the WHO classification ofosteopenia. Z-score of - 0.5. 0.2% loss of bone mineral density since thebaseline exam and 0.3% loss since the previous exam, both of which are notstatistically significant. Total bone mineral density in the left hip was calculated at 0.713 gm/jb6exrp a T-score of -1.9 falling within the [...] location documented in this encounter Care Teams Cook Chili Relationship Specialty Start Date End Date Joshua Gongora MD [address] [place] [address] [place] [address] PCP - General 04/09/17 documented as of this encounter Additional Source Comments The information contained in this document represents components of the legal health record. It is not the complete legal health record.[facility]
--- OUTSIDE RECORDS SUMMARY | 2025-03-22 14:54 | XMS_ITS | Patient Health Record ---
Author Organization [facility] Address [address] [place] [address] Care Team Providers Care Solid Waste Technician Name Role Phone Rolan TEJADA, Joshua Primary Care Provider Julieta Zhou Jr Jake Unavailable [phone] Allergies Allergen (clinical drug ingredient) Drug/Non Drug Allergy documented on EMR Reaction Allergy Type Onset Date Status Hair dye hair dye (uncoded) Unknown Allergy A ctive mycolog cream (uncoded) Unknown Allergy Active Results Component Value Reference Range Flag Notes Pathology Reviewed date:05/12/2024 01:26:53 PM Interpretation: Performing Lab:[facility], [address] [place] [phone] Notes/Report: Transglutaminase IgA Reviewed date:04/20/2024 08:53:59 AM Interpretation: Performing Lab:[facility], [address] [place] [phone] Notes/Report: Transglutaminase IgA <1.0 N Value Interpretation ----- <15.0 Antibody not detected > or = 15.0 Antibody detected THIS TEST WAS PERFORMED AT: [facility] [address] [place] [phone] DIANA CABRERA MD Immunoglobulin A Reviewed date:04/20/2024 08:53:51 AM Interpretation: Performing Lab:[facility], [address] [place] [phone] Notes/Report: Immunoglobulin A 311 70-320 mg/dL N THIS TEST WAS PERFORMED AT: [facility] [address] [place] [phone] DIANA CABRERA MD Reason For Referral No Information Medications Medication SIG (Take, Route, Frequency, Duration) Notes Start Date End Date Status Fluticasone Propionate 50 MCG/ACT Suspension 1 spray in each nostril Nasally prn Active Clobetasol Propionate 0.05% Ointment 1 application to affected area Externally twice a week Active Vitamin D 1000 UNIT Tablet 1 tablet Oral ly Once a day Active Levothyroxine Sodium 100 MCG Tablet 1 tablet Orally Once a day Active metroNIDAZOLE 0.75 % Cream APPLY TWICE D AILY External; Duration: 30 Active Ketoconazole 2 % Cream APPLY TO THE AFFE CTED AREA EVERY DAY External; Duration: 15 Active MiraLax (colon prep) 17 GM/SCOOP Powder mixed with Gatorade or Crystal Light Orally begin at 5:00 p.m. 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 Alcohol use is rare. She occasionally smokes ciga rettes, and is using electronic cigarettes to try to quit. Alcohol use is rare. She occasionally smokes ciga rettes, and is using electronic cigarettes to try to quit. Alcohol use is rare. She occasionally smokes ciga rettes, and is using electronic cigarettes to try to quit. Alcohol use is rare. She occasionally smokes ciga rettes, and is using electronic cigarettes to try to quit. Alcohol use is rare. Problems Problem Type SNOMED Code ICD Code Onset Dates Problem Status W/U Status Risk Notes Problem Change in bowel habit (81860232) Change in bowel habits (R19.4) Active confirmed Problem Abnormal feces (776734868) Heme positive stool (R19.5) Active confirmed Vital Signs Temperature 97.8 degrees Fahrenheit 04/18/2024 Blood pressure diastolic 00 mm Hg 04/18/2024 Height 64 in 04/18/2024 Blood pressure systolic 000 mm Hg 04/18/2024 Weight 119 lb 4 oz lbs 04/18/2024 BMI 20.47 kg/m2 04/18/2024 Encounters Encounter Location Date Provider Diagnosis [facility] [address] [place] [id number] 05/11/2024 Jake Zhou Jr Colon polyps K63.5 and Change in bowel habits R19.4 [facility] [address] [place] [phone] 04/18/2024 Jake Zhou Jr Change in bowel habits R19.4 and Heme positive stool R19.5 [facility] [address] [place] [phone] 04/20/2024 Jake Zhou Jr [facility] [address] [place] [phone] 05/12/2024 Jake Zhou Jr Assessments Encounter Date [...] Start Date Coverage End Date MEDICARE OF MINDI [place] [address] [place] [address] [id number] JOHNNY FREEMAN Self - patient is the insured [employer] ([employer] [address] [place] [address] [phone] [id number] JOHNNY FREEMAN Self - patient is the insured Medical (General) History Medical History History ICD Code Colonoscopy 04/21, normal, and internal h emorrhoids, ten-year followup syncope anxiety hyperthyroidism headaches ovarian cyst Surgical History Surgery Date(Month/Year) tonsillectomy
--- OUTSIDE RECORDS SUMMARY | 2025-03-22 14:55 | XMS_ITS | Patient Health Record ---
Author Organization Joshua Gongora MD Address [address] [place], [place] [id number] Care Team Providers Care Bacteriology Research Assistant Name Role Phone Joshua Gongora Primary Care Provider [phone] Allergies Allergen (clinical drug ingredient) Drug/Non Drug Allergy documented on EMR Reaction Allergy Type Onset Date Status Hair dye hair dye (uncoded) Unknown Allergy A ctive fragrance in mycolog (uncoded) blister Allergy Active Results Component Value Reference Range Notes TSH reflex Free T4 Reviewed date:07/11/2024 12:41:15 PM Interpretation: Performing Lab:[facility], [address] [place] [phone] Notes/Report: TSH reflex Free T4 1.40 0.32-4.0 uIU/mL Complete Blood Count Auto Di ff Reviewed date:02/10/2025 04:10:13 PM Interpretation: Performing Lab:[facility], [address] [place] [phone] Notes/Report: White Blood Count 6.9 4.8-10.8 X10*3/uL [...] NRBC Abs Auto 0.000 0.0-0.012 X10*3/uL Comprehensive [place]. Panel Fa st Reviewed date:02/10/2025 04:08:53 PM Interpretation: Performing Lab:[facility], [address] [place] [phone] Notes/Report: Sodium 140 135-145 mmol/L Potassium 3.6 [...] Panel Reviewed date:02/10/2025 02:09:38 PM Interpretation: Performing Lab:[address] [phone] Notes/Report: Triglycerides 87 <150 mg/dL Desirable Triglyceride: [...] Total Reviewed date:02/10/2025 04:01:32 PM Interpretation: Performing Lab:[address] [phone] Notes/Report: Vitamin D 25-OH Total 96.2 >30 [...] t Reviewed date:02/10/2025 04:10:35 PM Interpretation: Performing Lab:[address] [phone] Notes/Report: Urine, Clean Catch Color Urine Yellow Appearance Urine Clear PH 7.0 5.0-9.0 Glucose Urine UA Negative Negative mg/dL Urine Blood Trace Negative Specific Leiter - Urine <= 1.005 1.005-1.025 Urine Protein Negative Neg-Trace mg/dL Urine Ketones Negative Negative mg/dL Nitrite Urine Negative Negative Leukocyte Esterase Urine Negative Negative RBC Urine 0-2 0-2 /HPF WBC Urine 0-5 0-5 /HPF Squamous Epithelial Cell Urine 0-2 0-2 /HPF Bacteria Urine None Seen None Seen Hyaline Casts Urine 0-2 0-2 /LPF TSH reflex Free T4 Reviewed date:02/17/2025 12:17:20 PM Interpretation: Performing Lab:[address] [phone] Notes/Report: TSH reflex Free T4 1.68 0.32-4.0 uIU/mL Pathology Reviewed date:05/12/2024 02:45:10 PM Interpretation: Performing Lab:[address] [phone] Notes/Report: - -------- Name: Sherlyn Su Age/Sex: 73/F : 1950 Unit#: [id number] Attend Dr: Jake Upton MD Re05/11/24 Status : [facility] Location: [facility] Disch: - -------- SPEC : [id number] RECD: 05/11/24-1406 STATUS: [place] NUM: [id number] LON: 05/11/24-[address] [facility] [address]: Jake Upton MD ENTERED: 05/11/24-1415 SP TYPE: Surgical OTHR DR: Joshua Gongora [...] Sherlyn Su Age/Sex: 73/F : 1950 Unit#: [id number] Attend Dr: Jake Upton MD Re05/11/24 Status : [facility] Location: [facility] Disch: - -------- SPEC : [id number] RECD: 05/11/24-1406 STATUS: MARY [place] NUM: [id number] LON: 05/11/24-[address] [facility] [address]: Jake Upton MD ENTERED: 05/11/24-141 SP TYPE: Surgical OTHR DR: Joshua Gongora MD ORDERED: HE Stain/9, Gross Micro L4/3 Copies To: Joshua Gongora MD [facility] [address] [place] [address] Jake Upton MD [facility] [address] [place] [address] - -------- Signed (signature on file) Magdalena Kianna 05/12/24 1305 - -------- END OF REPORT Anitha Betancourt Reviewed date:07/11/2024 12:47:40 PM Interpretation: Performing Lab:[facility], [address] [place] [phone] Notes/Report: Anitha Betancourt See Note Specimen held untested for 24 hours; Call to request Chemistry testing. Anitha Betancourt Reviewed date:02/10/2025 02:06:35 PM Interpretation: Performing Lab:[facility], [address] [place] [phone] Notes/Report: Anitha Betancourt See Note Specimen held untested for 24 hours; Call to request Chemistry testing. Anitha Betancourt Reviewed date:02/17/2025 12:17:00 PM Interpretation: Performing Lab:[facility], [address] [place] [phone] Notes/Report: Anitha Betancourt See Note Specimen held untested for 24 hours; Call to request Chemistry testing. Reason For Referral Reason Ovarian cyst eval and treat for a second opinion Diagnosis 1 Ovarian cyst (N83.20 9) Referral Organization Joshua Gongora MD Referring Provider First Name Joshua Referring Provider Last Name Rolan Referring Provider Speciality Internal M edicine Referred Provider [employer] [facility] [employer] Referred Provider Specialty OB - Gynecol ogy General Notes Eleonora Agosto 0 08/26/2024 10:49:58 AM >send US info faxed phone [phone], Eleonora Agosto 09/09/2024 02:14:26 PM > was told to call back in 2 weeks after 09-19, Eleonora Agosto 09/29/2024 03:23:08 PM > info was refaxed on 09-26-24 was told to refax to [phone] they have a wait list until the [...] Provider Speciality Internal M edicine Referred Provider ROSENDO MENDOZA Referred Provider [...] 2 times per week Active Clobetasol Prop Oint-Andrews Tar 0.05 & 2.3 % as directed Externally A ctive Ketoconazole 2 % 1 application Externally QOD Active Levothyroxine Sodium 88 MCG 1 tablet on an empty stomach in the morning Orally 5 days a week Active Vitamin D 2000 UNIT [...] Problem Status W/U Status Risk Notes Problem 845044517 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 confirmed Problem 826542056 Thyroid nodule (E04.1) Active confirm ed Problem 976029072 Irritable bowel syndrome with diarrhea (K58.0) Active confirmed Problem 390471768 Reflux esophagit is (K21.00) Active confirmed Problem 76269093 Vitamin D defici ency (E55.9) Active confirmed Problem 235269727 Osteopenia (M85.80) Active confirmed Problem 555321352 History of hemat uria (Z87.448) Active confirmed Problem 81612893 Current smoker (F17.200) Active confirmed Problem 085438433 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 Problem 033406129 History of compr ession fracture of spine (Z87.81) Active confirmed Problem 58369491 Sciatica of righ t side (M54.31) Active confirmed Problem 260664192 Pure hypercholesterolemia (E78.00) Active confirmed Problem 091715890 Sacroiliac pain (M53.3) Active confir med Problem 93499580 KASANDRA (obstructive sleep apnea) (G47.33) Active confirmed Problem Irritable bowel (46630826) Irritable bowel (K58.9) Active confirmed Problem 39218079 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 Problem 95734043 Meralgia paresth etica of right side (G57.11) Active confirmed Vital Signs Blood pressure diastolic 80 mm Hg 02/17/2025 khushboo ght is up 2 pounds since 08-26-24 Height 62.00 in 02/17/2025 weight is up 2 pounds since 08-26-24 Blood pressure systolic 142 mm Hg 02/17/2025 weig ht is up 2 pounds since 08-26-24 Weight 118 lbs 02/17/2025 weight is up 2 pounds since 08-26-24 BMI 21.58 kg/m2 02/17/2025 weight is up 2 pounds since 08-26-24 Encounters Encounter Location Date Provider Diagnosis Joshua Gongora MD [address] [place] [id number] 07/11/2024 Joshua Gongora 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 History of hematuria Z87.448 Joshua Gongora MD [address] [place] [id number] 02/10/2025 Joshua Gongora 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 ; Encounter for administration of vaccine Z23 ; Pure hypercholesterolemia E78.00 and Vitamin D deficiency E55.9 Joshua Gongora MD [address] [place] [id number] 04/11/2024 Joshua Gongora History of hematuria Z87.448 ; Cyst of ovary, unspecified laterality N83.209 ; Irritable bowel syndrome with diarrhea K58.0 and Iodine hypothyroidism E01.8 Joshua Gongora MD [address] [place] [id number] 07/28/2024 Joshua Gongora Ovarian cyst N83.209 and Irritable bowel K58.9 Joshua Gongora MD [address] [place] [id number] 08/26/2024 Joshua Gongora Ovarian cyst N83.209 and Irritable bowel syndrome with diarrhea K58.0 Joshua Gongora MD [address] [place] [id number] 02/17/2025 Joshua Gongora 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 ; History of hematuria Z87.448 ; Pure hypercholesterolemia E78.00 ; Thyroid nodule E04.1 ; Vitamin D deficiency E55.9 and Depression screening Z13.31 Joshua Gongora MD [address] [place] [id number] 08/05/2024 Joshua Gongora MD [address] [id number] 02/17/2025 Joshua Gongora Thyroid nodule E04.1 Assessments Encounter Date Diagnosis (ICD Code) Assessment Notes Treatment Notes Treatment Clinical Notes Section Notes 07/11/2024 Iodine hypothyroidis m (ICD-10 - E01.8) 02/10/2025 Iodine hypothyroidis m (ICD-10 - E01.8) 02/10/2025 Encounter for administration of vaccine (ICD-10 - Z23) 04/11/2024 History of hematuria (ICD-10 - Z87.448) has been evaluated agian. they did not find any problems and told her it seemed to be her post menopausal situation. no further evaluation needed 04/11/2024 Cyst of ovary, unspecified laterality (ICD-10 - N83.209) bring the results of the cat scan to her stylist apprentice 07/28/2024 Ovarian cyst (ICD-10 - N83.209) followed by [facility] 07/28/2024 Irritable bowel (ICD -10 - K58.9) patient verbalized understanding of medication and directions for use 08/26/2024 Ovarian cyst (ICD-10 - N83.209) is going to wait and repeat us in 3 months. going for a second opinion 02/17/2025 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, will continue current regiment 02/17/2025 History of hematuria (ICD-10 - Z87.448) stable, will continue to monitor 02/17/2025 Thyroid nodule (ICD- 10 - E04.1) 07/11/2024 History of hematuria (ICD-10 - Z87.448) 02/10/2025 Pure hypercholesterolemia (ICD-10 - E78.00) 04/11/2024 Irritable bowel syndrome with diarrhea (ICD-10 - K58.0) going to see dr upton next week 08/26/2024 Irritable bowel syndrome with diarrhea (ICD-10 - K58.0) patient has not started meds yet. have explained the way to use them. if she has symptoms to take for a few days and then stop to see how she is doing 02/17/2025 Pure hypercholesterolemia (ICD-10 - E78.00) not high enough to treat, will continue to monitor 02/10/2025 Vitamin D deficiency (ICD-10 - E55.9) 04/11/2024 Iodine hypothyroidis m (ICD-10 - E01.8) 02/17/2025 Thyroid nodule (ICD- 10 - E04.1) [...] STEREO BIOPSY SI 07/06/2017 US THYROID 02/03/2023 US THYROID 02/17/2025 Future Test Test Name Order Date BONE DENSITY DEXA 01/24/2020 Next Appt Details Provider Name:Joshuakaushal diazr, 08/18/2025 09:00:00 AM, [address] [place] [address], [address], [phone], Provider Name:Joshua Sainz ier, 02/15/2026 07:30:00 AM, [address] [place] [address], [place] [address], [place], [place], [phone], Provider Name:Joshua Sainz ier, 02/22/2026 09:30:00 AM, [address] [place] [address], [place] [address], [place], [place], [phone], Insurance Providers Payer Name Payer Address Payer Phone Subscriber Number Group Number Insured Name Patient Relationship to Insured Coverage Start Date Coverage End Date [employer] [address] [place] [address] [id number] Austin Sua Self - patient is the insured [facility] [address] [place] [address] [id number] Austin Sua Self - patient is the insured Medical (General) History Medical History History ICD Code hematuria work up in 2000 with cysto and 2009 ultrasound and cytology colonoscopy 2004; colonoscop y done 04/13/[address] Upton (repeat 10 yrs)05/11/24 colonoscopy pending path t ubular adenomos repeat in 5 y ears hematuria workup 2025 no need for furthe r evaluation thyroid nodule unchanged. had been follo wed by dr hackett
--- OUTSIDE RECORDS SUMMARY | 2025-03-22 14:55 | XMS_ITS | Encounter Summary ---
Author Organization [facility] Address [address] [place] [address] Care Team Providers Care Head Banquet Waitress Name Role Phone Joshua Gongora MD Primary Care Provider [phone] Encounter Details Date Type Department Care Team (Late Contact Info) Description 02/23/2024 Lab Requisition [facility] - Main Lab [address] [facility] [place] [address] Teofilo Fletcher MD [address] [place] [phone] Benign essential microscopic hematuria Social History Tobacco Use Types Packs/Day Years Used Date Smoking Tobacco: Never Assessed Comments Unknown Sex and Gender Information Value Date Recorded Sex Assigned at Not on file Legal Sex Female 3:04 AM EST Gender Identity Not on file Sexual Orientation Not on file documented as of this encounter Plan of Treatment Upcoming Encounters Date Type Department Care Team (Late Contact Info) Description 03/24/2025 11:00 AM EST Appointment [facility] Ultrasound [address] [place] [phone] documented as of this encounter Procedures Procedure [...] clinical and pathological findings. 03/15/2024 8:59 AM [facility] Addendum electronically signed by Mark Young MD on 03/15/2024 at 0859 EST Final Diagnosis Urine, Voided: Negative for high grade urothelial carcinoma. Acute inflammatory cells present. Note: UroVysion testing to follow. 03/15/2024 8:59 AM [facility] at 1522 EST Gross Description A. Urine, Voided, : [id number] Recd 1 TP CYTO 1 TP FISH 03/15/2024 8:59 AM [facility] Disclaimer Unless otherwise specified, all tissue is 10% NB formalin fixed and paraffin embedded. 03/15/2024 8:59 AM [facility] Tissue Urine specimen from urethra / Unknown 02/15/2024 02/23/2024 1:55 PM EST us Teofilo Fletcher MD LAB PATHOLOGY ORDERABLES Edited Result - Final [facility] [address] [place] [address], documented in this encounter Visit Diagnoses Diagnosis Benign essential microscopic hematuria documented in this encounter Care Teams Head Banquet Waitress Relationship Specialty Start Date End Date Joshua Gongora MD [address] [place] [address] PCP - General Internal Medicine 03/17/25 documented as of this encounter
--- OUTSIDE RECORDS SUMMARY | 2025-03-22 14:55 | XMS_ITS | Clinical Summary ---
Author Organization [address] [facility] Address [address] [place] [address] Phone Care Team Providers Care Clinical Research Analyst Name Role Phone Joshua Vasquez MD Primary Care Provider [phone] Social History Tobacco Use Types Packs/Day Years Used Date Smoking Tobacco: Never Assessed Comments Unknown Sex and Gender Information Value Date Recorded Sex Assigned at Not on file Legal Sex Female 3:04 AM EST Gender Identity Not on file Sexual Orientation Not on file Plan of Treatment Upcoming Encounters Date Type Department Care Team (Late st Contact Info) Description 03/24/2025 11:00 AM EST Appointment [facility] Ultrasound [address] [place] [address] Health Maintenance Due Date Last Done Comments [...] Procedure Name Priority Date/Time Associated Diagnosis Comments [facility] SCREENING DIGITAL Routine 10/26/2023 12:54 PM EDT Encounter for screening mammogram for malignant neoplasm of breast from Last 3 Months or Most Recently Relevant to Health Maintenance Results * [facility] SCREENING DIGITAL (10/26/2023 12:54 PM EDT) Anatomical Region Laterality Modality Mammography 10/26/2023 10:0 2 AM EDT Narrative 10/26/2023 12:54 PM EDT [facility] Diagnostic Imaging Department [address] [place] [address] Patient: PETEJOHNNY SHEPPARD Teresa TerrazasB./Age/Sex: 1950 - 73 - F Unit#: [id number] [facility] Mnemonic/Ordering Site: [facility] Ordering Physician: JOSHUA VASQUEZ MD Bony Screening Digital - 10/26/23 - 1025 Report Status:Signed EXAM: Bony Screening Digital EXAM DATE AND TIME: 10/26/2023 10:26 AM HISTORY: Annual screening COMPARISON: 10/09/2022, 09/30/2021, 09/28/2020, 09/27/2019 and 07/12/2018 TECHNIQUE: Bilateral digital breast tomosynthesis was performed in the CC and MLO projections. Computer aided detection with [employer] 7.2-H and [employer] 3D 3.1 was employed. TISSUE DENSITY: c. [...] mammogram BILATERAL in 1 year. Dictating Physician: DEBBIE SHAW MD Electronically Signed by: DEBBIE SHAW MD Dic Date/Time: 10/26/23 1246 Sign date/Time: 10/26/23 1254 Procedure Note Debbie Shaw MD - 01/20/2024 [facility] Diagnostic Imaging Department [address] [place] [address] Patient: JOHNNY FREEMAN Teresa /Age/Sex: 1950 - 73 - F Unit#: [id number] Location/Status: [facility]/REG CLI Mnemonic/Ordering Site: [facility] Ordering Physician: JOSHUA VASQUEZ MD [facility] Screening Digital - 10/26/23 - 1025 Report Status:Signed EXAM: [facility] Screening Digital EXAM DATE AND TIME: 10/26/2023 10:26 AM HISTORY: Annual screening COMPARISON: 10/09/2022, 09/30/2021, 09/28/2020, 09/27/2019 and 07/12/2018 TECHNIQUE: Bilateral digital breast tomosynthesis was performed in the CCand MLO projections. Computer aided detection with [employer] 7.2-H [employer] 3D 3.1 was employed. TISSUE DENSITY: c. [...] mammogram BILATERAL in 1 year. Dictating Physician: DEBBIE SHAW MD Electronically Signed by: DEBBIE SHAW MD Dic Date/Time: 10/26/23 1246 Sign date/Time: 10/26/23 1255 Joshua Vasquez MD IMG BI PROCEDURES Final Res ult from Last 3 Months or Most Recently Relevant to Health Maintenance Insurance MEDICARE [facility] Care Teams Clinical Research Analyst Relationship Specialty Start Date End Date Joshua Vasquez MD [address] [place] [address] PCP - General Internal Medicine 03/17/25
== END 2025-03-22 11:15 | disposition home or self-care (01) ==
LOC: HO.HMGAL 11:14
PROVIDERS: PCP Internal Medicine; Visit Provider Registered Nurse Emergency
DX: J30.89 Other allergic rhinitis (principal)
CPT/HCPCS: 95117; 95165